=== PATIENT | female | born 1960 | race Caucasian/White ===

== ENCOUNTER 2019-06-16 20:45 | Emergency (ER) | payer BC, SELFPAY ==
[2019-06-16 20:47] VITALS: BP 139/85; PULSE 68; RESP 15; TEMP 36.4; O2SAT 97; BMI 31.5
--- NOTE | 2019-06-16 20:53 | CTR_ITS ---
PROCEDURE INFORMATION: Exam: CT Abdomen And Pelvis Without Contrast Exam date and time: 06/16/2019 8:53 PM Age: 59 years old Clinical indication: Abdominal pain; Flank; Left; Prior surgery; Additional info: Flank/abdominal pain TECHNIQUE: Imaging protocol: Computed tomography of the abdomen and pelvis without contrast. Total DLP: 1400.16 mGy-cm Radiation optimization: All CT scans at this facility use at least one of these dose optimization techniques: automated exposure control; mA and/or kV adjustment per patient size (includes targeted exams where dose is matched to clinical indication); or iterative reconstruction. COMPARISON: CT abdomen pelvis w con* [id number] 03/11/2019 9:56 AM FINDINGS: Minimal atelectasis at the right lung place. Status post cholecystectomy. There is a 1.5 cm hypodensity in the left hepatic lobe on series 2, image 37. Appearance suggests cyst. The spleen, pancreas, adrenal glands, and kidneys are unremarkable within the limits of a noncontrast study. No renal stones identified. No hydronephrosis on either side. A normal-appearing appendix is seen in the right lower quadrant. No evidence of bowel obstruction. No evidence of diverticulitis. No free intraperitoneal air or fluid identified. The bladder is unremarkable. The abdominal aorta is nonaneurysmal. Mild degenerative changes of the lower thoracic spine and the lumbar spine. CT/CT kidney stone [id number] IMPRESSION: 1. No acute intra-abdominal/intrapelvic process identified. Radiation Dose CTDIVOL = (mGy): DLP = 1400.16 (mGy-cm)
--- NOTE | 2019-06-16 21:19 | W.ED.ABDPA2 ---
HPI - Abdominal Pain General: Chief Complaint: Abdominal Pain Stated Complaint: ABDOMEN PAIN Time Seen by Provider: 06/16/19 20:48 History of Present Illness: HPI narrative: Carrie is a nice 59-year-old female who comes in complaining of right-sided flank pain. She states she is been having symptoms for the past 2 days. She had symptoms of a UTI and was seen by urgent care and diagnosed with a UTI and was placed on Cipro. She continues to have pain and feel nauseated. She has not had a fever and she has not vomited. Associated Symptoms: Reports nausea; Denies chills, coffee ground emesis, constipation, GI cramping, diarrhea, dysuria, fever(s), hematochezia, hematuria, hematemesis, melena, syncope and vomiting Review of Systems General: Reports: other (negative unless marked) Const: Denies: fever, chills, body aches, fatigue, malaise or diaphoresis Eyes: Denies: change in vision or blurry vision ENMT: Denies: throat pain, painful swallowing, hoarseness, ear pain, ear discharge, Change in hearing or nasal discharge Card: Denies: chest pain, palpitations, irregular heart rhythm, syncope, pre-syncope, shortness of breath on exertion or shortness of breath when lying down Resp: Denies: shortness of breath, productive cough, non-productive cough, wheezing, coughing up blood or chest congestion GI: Reports: nausea; Denies: abdominal pain, vomiting, vomiting blood, coffee grounds in vomit, diarrhea, constipation, cramping, blood in stool or black tarry stool : Denies: painful urination, urinary frequency, urinary urgency, decreased urine ouput, urinary incontinence or blood in urine Musc: Denies: neck pain, back pain, extremity pain, extremity swelling, joint pain, joint swelling, joint warmth or joint stiffness Skin/Breast: Denies: rash, skin tenderness or yellow skin Neuro: Denies: headache, numbness in extremities, weakness in extremities, changes in sensation, lack of coordination, difficulty walking, dizziness, vertigo or confusion Endo: Denies: excessive thirst, tired all the time, cold intolerance, excessive sweating, flushing or hot flashes Froylan/Lymph: Denies: easy bruising, easy bleeding, petechiae or enlarged lymph nodes All/Imm: Denies: hives, throat swelling, tongue swelling, facial swelling or acute wheezing PFSH ED PFSH: Social History Smoking and tobacco status: never smoked Second hand smoke exposure: Yes Alcohol intake: never Physical Exam Const: COMMON NORMALS: no apparent distress, oriented x3, no limitations, healthy appearing and well nourished EXAM LIMITATIONS: no altered mental status GENERAL APPEARANCE: cooperative, well kempt and well developed ORIENTATION/CONSCIOUSNESS: Yes awake HENMT: COMMON NORMALS: normocephalic, head/scalp atraumatic, hearing grossly normal bilaterally, external ears normal, EAC's normal, external nose normal and moist oral mucous membranes HEAD & SCALP: normal to inspection, normocephalic and atraumatic FACE & SINUS: normal facial exam and face symmetric NOSE: external nose normal and nares normal EXTERNAL EAR: Yes external ears normal EXTERNAL AUDITORY CANAL: EAC's normal MOUTH: oral and palatal mucosa normal and tongue normal Eye: COMMON NORMALS: PERRL, EOMs intact bilaterally, conjunctivae normal and no scleral icterus GENERAL EYE: normal appearance of both eyes and normal light reflex CONJUNCTIVA: Yes conjunctivae normal SCLERA: sclerae normal CORNEA: Yes corneas normal PUPIL: Yes PERRL DIRECT OPHTHALMOSCOPY: Yes normal light reflex Neck/C-Spine: COMMON NORMALS: full ROM, no lymphadenopathy, supple, no meningeal signs and no JVD GENERAL: Yes normal visual inspection and Yes trachea midline CERVICAL SPINE: Yes cervical ROM normal Chest: COMMONS NORMALS: inspection of chest normal and palpation of chest normal Resp: COMMON NORMALS: normal respiratory effort, no retractions, no use of accessory muscles and clear to auscultation bilaterally EFFORT & INSPECTION: Yes able to speak in complete sentences AUSCULTATION: clear to auscultation bilaterally Cardio: COMMON NORMALS: no JVD, regular rate, regular rhythm, S1 normal heart sound, S2 normal heart sound, no gallops, no clicks, no murmurs and no rub JUGULAR VENOUS DISTENTION: no JVD RATE: regular rate RHYTHM: regular rhythm HEART SOUNDS: S1 normal and S2 normal GI: COMMON NORMALS: soft to palpation, non-tender, no hepatosplenomegaly and no masses INSPECTION: Yes normal to inspection PALPATION: Yes soft and Yes no hepatosplenomegaly : COMMON NORMALS: Yes no CVA tenderness BLADDER/KIDNEY EXAM: Yes no CVA tenderness Back/Pelvis: COMMON NORMALS: no CVA tenderness, thoracic and lumbar spine normal to inspection, no thoracic nor lumbar tenderness and thoraco-lumbar ROM normal Extremity: COMMON NORMALS: normal to inspection, full ROM, normal capillary refill, no joint enlargement, no clubbing, cyanosis or edema and no calf tenderness Neuro: COMMON NORMALS: oriented x3, CN's II-XII intact bilaterally, moves all extremities, no focal motor deficits and no sensory deficits noted MENINGEAL SIGNS: Yes no meningeal signs Psych: COMMON NORMALS: mental status grossly normal, thought process normal, cooperative, affect normal, speech normal and activity/motor behavior normal APPEARANCE: Yes well kempt SPEECH: Yes normal speech THOUGHT PROCESS: normal thought process Skin: COMMON NORMALS: no rashes or lesions noted, skin turgor normal, no jaundice, no petechiae and no mottling GENERAL SKIN EXAM: no rashes or lesions noted and turgor normal Course Vital Signs: Vital signs: Vital Signs Temperature 97.6 F 06/16/19 20:47 Pulse Rate 53 L 06/16/19 22:33 Respiratory Rate 18 06/16/19 22:33 Blood Pressure 107/75 06/16/19 22:33 Pulse Oximetry 99 06/16/19 22:33 MDM - Abdominal Pain MDM Narrative: Medical decision making narrative: Mrs. Solis is a nice 59-year-old female who comes in complaining of abdominal pain. She primarily planes of right flank pain. CT scan shows a normal appendix and no evidence of kidney stone. She is been previously diagnosed with UTI and is on Cipro for this. She was to continue this and I have discussed with her at length that the possibility of developing appendicitis is present. She agrees to continue this and return if her symptoms worsen or change. She understands that appendicitis is still a possibility for her symptoms she does agree to return if necessary. Differential Diagnosis: Differential diagnosis abdominal pain: Likely abdominal pain, acute appendicitis, calculus of kidney, constipation, diverticulitis, endometriosis, gastroenteritis, pancreatitis and small bowel obstruction Lab Data: Attestation: I reviewed the patient's lab results. Labs: Lab Results 06/16/19 06/16/19 06/16/19 Range/Units 21:20 21:20 21:36 WBC 5.6 (4.0-10.0) 10^3/ uL RBC 4.11 (4.1-5.3) 10^6/u L Hgb 12.1 (11.5-15.3) g/dL Hct 38.2 (37.0-47.0) % MCV 92.9 (81-99) fL MCH 29.4 (28.0-34.0) pg MCHC 31.7 (30.0-36.0) g/dL RDW 13.5 (12.1-15.1) % Plt Count 225 (130-400) 10^3/c mm MPV 10.1 (7.4-10.4) fL Neut % (Auto) 64.1 % Lymph % (Auto) 25.7 % King[place]isher % (Auto) 6.9 % Eos % (Auto) 2.8 % Baso % (Auto) 0.5 % Neut # (Auto) 3.6 (1.8-7.7) 10^3/u L Lymph # (Auto) 1.5 (0.8-4.8) 10^3/u L [place] # (Auto) 0.4 (0.2-0.9) 10^3/u L Eos # (Auto) 0.2 (0.0-0.8) 10^3/u L Baso # (Auto) 0.0 (0.0-0.1) 10^3/u L Nucleated RBC % (a uto) 0 % Nucleated RBCs # 0.0 /100WBC Sodium 140 (136-145) mmol/L Potassium 4.2 (3.5-5.1) mmol/L Chloride 103 (98-107) mmol/L Carbon Dioxide 24 (22-29) mmol/L Anion Gap 17.2 (5-19) BUN 11 (6-20) mg/dL Creatinine 1.2 H (0.5-0.9) mg/dL GFR Calculation 46.0 L (90-130) mL/min Glucose 112 (65-115) mg/dL Calculated Osmolal ity 287 (285-295) mOsm/k g Calcium 9.7 (8.5-10.5) mg/dL Total Bilirubin 0.3 (0.15-1.2) mg/dL AST 28 (0-32) U/L ALT 27 (0-33) U/L Alkaline Phosphata se 82 (35-105) IU/L Total Protein 7.5 (6.6-8.7) g/dL Albumin 3.9 (3.5-5.2) g/dL Globulin 3.6 (1.3-4.6) g/dL Lipase 46 (13-60) U/L HCG, Qual Negative (Negative) Urine Color (Yellow) Urine Appearance (CLEAR) Urine pH (5-7) Ur Specific Gravit y (1.005-1.030) Urine Protein (Negative) Urine Glucose (UA) (Normal) Urine Ketones (Negative) Urine Blood (Negative) Urine Nitrate (Negative) Urine Bilirubin (NEGATIVE) Urine Urobilinogen (Negative) mg/dL Ur Leukocyte Mame ase (Negative) 06/16/19 Range/Units 21:36 WBC (4.0-10.0) 10^3/ uL RBC (4.1-5.3) 10^6/u L Hgb (11.5-15.3) g/dL Hct (37.0-47.0) % MCV (81-99) fL MCH (28.0-34.0) pg MCHC (30.0-36.0) g/dL RDW (12.1-15.1) % Plt Count (130-400) 10^3/c mm MPV (7.4-10.4) fL Neut % (Auto) % Lymph % (Auto) % Kingfisher % (Auto) % Eos % (Auto) % Baso % (Auto) % Neut # (Auto) (1.8-7.7) 10^3/u L Lymph # (Auto) (0.8-4.8) 10^3/u L Kingfisher # (Auto) (0.2-0.9) 10^3/u L Eos # (Auto) (0.0-0.8) 10^3/u L Baso # (Auto) (0.0-0.1) 10^3/u L Nucleated RBC % (a uto) % Nucleated RBCs # /100WBC Sodium (136-145) mmol/L Potassium (3.5-5.1) mmol/L Chloride (98-107) mmol/L Carbon Dioxide (22-29) mmol/L Anion Gap (5-19) BUN (6-20) mg/dL Creatinine (0.5-0.9) mg/dL GFR Calculation (90-130) mL/min Glucose (65-115) mg/dL Calculated Osmolal ity (285-295) mOsm/k g Calcium (8.5-10.5) mg/dL Total Bilirubin (0.15-1.2) mg/dL AST (0-32) U/L ALT (0-33) U/L Alkaline Phosphata se (35-105) IU/L Total Protein (6.6-8.7) g/dL Albumin (3.5-5.2) g/dL Globulin (1.3-4.6) g/dL Lipase (13-60) U/L HCG, Qual (Negative) Urine Color Yellow (Yellow) Urine Appearance Clear (CLEAR) Urine pH 6.5 (5-7) Ur Specific Gravit y 1.010 (1.005-1.030) Urine Protein Neg (Negative) Urine Glucose (UA) Norm (Normal) Urine Ketones Negative (Negative) Urine Blood Neg (Negative) Urine Nitrate Negative (Negative) Urine Bilirubin Neg (NEGATIVE) Urine Urobilinogen Norm (Negative) mg/dL Ur Leukocyte Mame ase Negative (Negative) Imaging Data ^: CT Abd/Pel: Radiologist's impression: [place] [address] CT Scan Report Signed Patient: Carrie Solis #: [id number] : 1960Acct#:[id number] Age/Sex: 59 / FADM Date: 06/16/19 Loc: ERRoom/Bed: Attending Dr: Ordering Provider/Ordering MD: Alejandrina Gaspar DO Date of Service: 06/16/19 Procedure(s): CT kidney stone 28435 Accession Number(s): [id number] Report Number: [id number] PROCEDURE INFORMATION: Exam: CT Abdomen And Pelvis Without Contrast Exam date and time: 06/16/2019 8:53 PM Age: 59 years old Clinical indication: Abdominal pain; Flank; Left; Prior surgery; Additional info: Flank/abdominal pain TECHNIQUE: Imaging protocol: Computed tomography of the abdomen and pelvis without contrast. Total DLP: 1400.16 mGy-cm Radiation optimization: All CT scans at this facility use at least one of these dose optimization techniques: automated exposure control; mA and/or kV adjustment per patient size (includes targeted exams where dose is matched to clinical indication); or iterative reconstruction. COMPARISON: CT abdomen pelvis w con* [id number] 03/11/2019 9:56 AM FINDINGS: Minimal atelectasis at the right lung place. Status post cholecystectomy. There is a 1.5 cm hypodensity in the left hepatic lobe on series 2, image 37. Appearance suggests cyst. The spleen, pancreas, adrenal glands, and kidneys are unremarkable within the limits of a noncontrast study. No renal stones identified. No hydronephrosis on either side. A normal-appearing appendix is seen in the right lower quadrant. No evidence of bowel obstruction. No evidence of diverticulitis. No free intraperitoneal air or fluid identified. The bladder is unremarkable. The abdominal aorta is nonaneurysmal. Mild degenerative changes of the lower thoracic spine and the lumbar spine. CT/CT kidney stone [id number] IMPRESSION: 1. No acute intra-abdominal/intrapelvic process identified. Radiation Dose CTDIVOL = (mGy): DLP = 1400.16 (mGy-cm) Dictated By:Steve Jefferson MD Signed By:Steve Jeffersonigned Date/Time:06/16/192133 DD/ 31 Discharge Plan Discharge Patient Disposition: Home, Self-Care Clinical Impression: Acute flank pain Condition: Stable Prescriptions: No Action diltiazem HCl 180 mg capsule,extended release 24 hr 180 mg PO DAILY RF: 0 prednisone 10 mg tablet 10 mg PO BID RF: 0 OTC thyroid care PO RF: 0 biotin PO RF: 0 Immune Support Complex 75 mg tablet PO RF: 0 OTC blood pressure PO RF: 0 OTC stone free PO RF: 0 OTC Kidney and Bladder PO RF: 0 Bioflavonoids, [place] Powder PO RF: 0 ascorbate calcium (vitamin C) 500 mg capsule 500 mg PO DAILY RF: 0 d-mannose Powder PO RF: 0 Alive Once Daily Women 50 Plus 800-100 mcg tablet PO RF: 0 shark oil 1000mg PO BID RF: 0 Adult Probiotic 3 billion cell capsule 3,000 mmu cells PO DAILY RF: 0 magnesium gluconate 500 mg tablet 500 mg PO DAILY RF: 0 magnesium aspartate HCl 61 mg (615 mg) tablet,delayed release (DR/EC) 61 mg PO DAILY RF: 0 Discharge Orders: Discharge Order (Routine); Ordered 06/16/19 Ordered By: Alejandrina Gaspar Referrals: Loli Stahl [Primary Care Provider] - Rosalind Tejada DO [Family Provider] - 1-3 days Discharge Diet: Advance as tolerated Discharge Activity: Increase activity as tolerated Patient Instructions: Abdominal Pain (ED) Activity Restrictions/Additional Instructions: Please return to the ER immediately for any of the signs or symptoms listed on your discharge instruction sheets, worsening/changing of your symptoms, you are not getting better as quickly as expected, or for ANY other cause or concerns. Be certain to follow-up with your doctor for recheck or return to the ER for increasing pain in your right side as appendicitis is still a potential cause for your pain. Return to the ER in the next 12 to 24 hours for recheck to rule out appendicitis if you are still having any pain at all. Coding Level of Care Code ED Chief Radiologic Technologist for [facility] Exam Comprehensive
[2019-06-16 21:30] VITALS: BP 124/78; PULSE 80; RESP 18; O2SAT 97
[2019-06-16 21:32] VITALS: RESP 18; O2SAT 99
[2019-06-16] MEDS: morphine 4 mg/mL SDV 1 mL IVP (21:32)
[2019-06-16] MEDS: ondansetron 2 mg/ML SDV 2 mL 4 MG IVP (21:32)
[2019-06-16 21:34] LABS: Basophils % 0.5 %; Eosinophils # 0.2 10^3/uL (0.0-0.8); Eosinophils % 2.8 %; Hematocrit 38.2 % (37.0-47.0); Hemoglobin 12.1 g/dL (11.5-15.3); Lymphocytes # 1.5 10^3/uL (0.8-4.8); Lymphocytes % 25.7 %; Mean Corpuscular HGB Conc 31.7 g/dL (30.0-36.0); Mean Corpuscular Hemoglobin 29.4 pg (28.0-34.0); Mean Corpuscular Volume 92.9 fL (81-99); Mean Platelet Volume 10.1 fL (7.4-10.4); Monocytes # 0.4 10^3/uL (0.2-0.9); Monocytes % 6.9 %; Neutrophils # 3.6 10^3/uL (1.8-7.7); Neutrophils % 64.1 %; Nucleated Red Blood Cells % 0 %; Platelet Count 225 10^3/cmm (130-400); Red Blood Count 4.11 10^6/uL (4.1-5.3); Red Cell Distribution Width 13.5 % (12.1-15.1); White Blood Count 5.6 10^3/uL (4.0-10.0)
[2019-06-16 21:43] LABS: HCG Qualitative Urine. Negative (Negative)
[2019-06-16 21:49] LABS: Urine Appearance Clear (CLEAR); Urine Color Yellow (Yellow); pH Urine 6.5 (5-7)
[2019-06-16 21:50] LABS: Bilirubin Urine Neg (NEGATIVE); Blood Urine Neg (Negative); Glucose Urine UA Norm (Normal); Ketones Urine Negative (Negative); Nitrate Urine Negative (Negative); Protein Urine Neg (Negative); Urobilinogen Urine Norm (Negative)
[2019-06-16 21:51] LABS: Add Urine Culture? No
[2019-06-16 21:52] LABS: Alanine Aminotransferase 27 U/L (0-33); Albumin Level 3.9 g/dL (3.5-5.2); Alkaline Phosphatase 82 IU/L (35-105); Anion Gap 17.2 (5-19); Aspartate Amino Transferase 28 U/L (0-32); Blood Urea Nitrogen 11 mg/dL (6-20); Calcium 9.7 mg/dL (8.5-10.5); Carbon Dioxide 24 mmol/L (22-29); Chloride 103 mmol/L (98-107); Globulin 3.6 g/dL (1.3-4.6); Glucose 112 mg/dL (65-115); Lipase 46 U/L (13-60); Osmolality Calculated 287 mOsm/kg (285-295); Potassium 4.2 mmol/L (3.5-5.1); Sodium 140 mmol/L (136-145); Total Bilirubin 0.3 mg/dL (0.15-1.2); Total Protein 7.5 g/dL (6.6-8.7)
[2019-06-16 22:00] LABS: Leukocyte Esterase Urine Negative (Negative)
[2019-06-16 22:19] VITALS: BP 107/75; PULSE 77; RESP 18; O2SAT 99
[2019-06-16 22:33] VITALS: BP 107/75; PULSE 53; RESP 18; O2SAT 99
== END 2019-06-16 22:34 | disposition home or self-care (01) ==
LOC: ER 06-17 02:01
PROVIDERS: Emergency Provider Emergency Medicine; Family Provider Family Medicine; PCP Registered Nurse
DX: R10.9 Unspecified abdominal pain (principal)
CPT/HCPCS: 12345; 36415; 74176; 80053; 81001; 81025; 83690; 85025; 96374; 96375; 99282; 99283; A9270; J2270; J2405

== ENCOUNTER 2019-07-20 22:38 | Emergency (ER) | payer BC, SELFPAY ==
[2019-07-20 22:47] VITALS: BP 195/116; PULSE 76; RESP 16; TEMP 36.4; O2SAT 98; BMI 32.2
--- NOTE | 2019-07-20 23:14 | XR_ITS ---
WS: [id number] XR hand LT min 3V* [id number] REASON FOR EXAM: pain swelling FINDINGS: Degenerate changes of the first metacarpal carpal articulation. There appears to be a remot e fracture of the proximal first metacarpal. There is degenerate changes of the distal interphalangeal joints. No fractures are seen. XR/XR hand LT min 3V* [id number] IMPRESSION: Osteoarthritic changes.
--- NOTE | 2019-07-20 23:27 | ED_ITS ---
HPI - Extremity Problem General: Chief complaint: Extremity Injury, Lower Stated complaint: right leg/left hand welling Time Seen by Provider: 07/20/19 22:59 History of Present Illness: HPI Narrative: 59-year-old female presents with right lower extremity swelling, and pain behind her knee. She says it feels hot. She is not had this problem before. There was no injury. She does have a history of Sjogren's disease. She also complains of left hand second and third MCP pain and swelling that is nontraumatic. She states she has been on prednisone. MD Complaint: extremity pain and extremity swelling Onset (ago): day(s) Pain Consistency: constant Location: right, knee and other (Left hand) Quality: aching Radiation: none Relieving factors: nothing Exacerbating factors: weight bearing Associated symptoms: Deny chest pain, fever(s), myalgias, rash or short of breath Review of Systems Const: Denies: fever Eyes: Denies: change in vision ENMT: Denies: painful swallowing Card: Reports: edema; Denies: chest pain or palpitations Resp: Denies: shortness of breath, productive cough, non-productive cough or wheezing GI: Denies: abdominal pain, nausea or vomiting : Reports: urinary frequency; Denies: painful urination or blood in urine Musc: Reports: back pain and joint warmth; Denies: neck pain or redness Skin/Breast: Denies: rash, itching or redness Neuro: Denies: headache, dizziness or vertigo Psych: Denies: anxiety PFSH ED PFSH: Social History Smoking and tobacco status: never smoked Second hand smoke exposure: Yes Alcohol intake: never Physical Exam Const: GENERAL APPEARANCE: well developed ORIENTATION/CONSCIOUSNESS: Yes oriented to person, Yes oriented to place and Yes oriented to time HENMT: COMMON NORMALS: normocephalic, external ears normal and external nose normal HEAD & SCALP: normocephalic FACE & SINUS: normal facial exam NOSE: external nose normal and no nasal discharge EXTERNAL EAR: Yes external ears normal MOUTH: tongue normal Eye: COMMON NORMALS: PERRL and EOMs intact bilaterally EYELID: eyelids normal PUPIL: Yes PERRL Neck/C-Spine: GENERAL: No tracheal deviation Chest: COMMONS NORMALS: inspection of chest normal CHEST: No tenderness Resp: COMMON NORMALS: clear to auscultation bilaterally EFFORT & INSPECTION: No tachypneic, No respiratory distress, No retractions, No uses accessory muscles and No tracheal deviation AUSCULTATION: clear to auscultation bilaterally, no rhonchi, no wheezes and lung sounds not diminished Cardio: COMMON NORMALS: regular rate and regular rhythm RATE: regular rate RHYTHM: regular rhythm HEART SOUNDS: no murmurs PERIPHERAL PULSES: radial pulses present GI: INSPECTION: No abdominal distension AUSCULTATION: No hyperactive bowel sounds and No hypoactive bowel sounds PALPATION: No guarding and No rigid PERCUSSION: no dullness to percussion and no tympanic to percussion Extremity: NARRATIVE EXTREMITY EXAM: Exam of the right lower extremity reveals some edema. There is fullness behind the knee. The knee is diffusely mildly tender. There is mild warmth. There is no clear joint effusion. Exam of the left hand reveals swelling and some synovitis along the MCPs of the second and third digit. There is diffuse tenderness to palpation. No rash or streaking. Neuro: SENSORIUM/ORIENTATION: Yes oriented to person, Yes oriented to place and Yes oriented to time Psych: COMMON NORMALS: mental status grossly normal Skin: COMMON NORMALS: no rashes or lesions noted GENERAL SKIN EXAM: no rashes or lesions noted Procedures Joint Aspiration/Injection Joint Asp./Inject. 1: Side of body: right Joint Aspirated: knee Ultrasound Guidance: Yes Skin Prep: Chlorhexidine Local Anesthetic: lidocaine 1% Amount of anesthesia used (mL): 5 Needle Size Used: 18G Fluid Obtained: clear Total fluid obtained (mL): 22 Medication Injected, if any: Triamcinolone Acetate Amount of medication injected (mL): 1 Patient Tolerated Procedure: well Complications: none Course Vital Signs: Vital signs: Vital Signs Temperature 97.5 F L 07/20/19 22:47 Pulse Rate 79 07/21/19 02:54 Respiratory Rate 16 07/21/19 02:54 Blood Pressure 138/82 07/21/19 02:54 Pulse Oximetry 98 07/21/19 02:54 MDM - Extremity (Nontraumatic) MDM Narrative: Medical decision making narrative: 59-year-old patient with 2 specific complaints. The first is that of left hand pain, specifically her second and third MCPs. She has some synovitis there. I do not see any erosive changes on x-ray. She has a history of Sjogren's disease. Her second complaint is that of knee and lower leg pain and swelling. This is on the right. She feels a fullness behind her knee. Ultrasound was negative for DVT. 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 On my bedside ultrasound, a tiny Philippe's cyst was noted. A moderate knee joint effusion was also noted. It was noted on x-ray as well. I do not see any fracture or erosive changes on x-ray. Knee was aspirated with 22 mL of slightly bloody, mostly clear fluid aspirated. It is sent for synovial fluid analysis. Her white blood cell count is 6.4. Her other labs are benign. Her sed rate is only minimally elevated. We will go ahead and let her go on a taper of prednisone. Should her synovial fluid come back worrisome for septic arthritis, we will call her back. Fluid analysis reveals a slightly inflammatory joint. White count is well below sepsis markers. Cells are nearly all monocytes. Culture and crystal analysis are pending. Lab Data: Labs: Lab Results 07/20/19 07/21/19 07/21/19 Range/Units 23:45 00:40 00:40 WBC 6.4 (4.0-10.0) 10^3/ uL RBC 4.34 (4.1-5.3) 10^6/u L Hgb 13.1 (11.5-15.3) g/dL Hct 40.5 (37.0-47.0) % MCV 93.3 (81-99) fL MCH 30.2 (28.0-34.0) pg MCHC 32.3 (30.0-36.0) g/dL RDW 13.8 (12.1-15.1) % Plt Count 255 (130-400) 10^3/c mm MPV 9.7 (7.4-10.4) fL Neut % (Auto) 66.9 % Lymph % (Auto) 21.1 % [place] % (Auto) 8.9 % Eos % (Auto) 2.3 % Baso % (Auto) 0.3 % Neut # (Auto) 4.3 (1.8-7.7) 10^3/u L Lymph # (Auto) 1.4 (0.8-4.8) 10^3/u L [place] # (Auto) 0.6 (0.2-0.9) 10^3/u L Eos # (Auto) 0.2 (0.0-0.8) 10^3/u L Baso # (Auto) 0.0 (0.0-0.1) 10^3/u L Nucleated RBC % (a uto) 0 % Nucleated RBCs # 0.0 /100WBC ESR 35 H (0-15) mm/hr Sodium (136-145) mmol/L Potassium (3.5-5.1) mmol/L Chloride (98-107) mmol/L Carbon Dioxide (22-29) mmol/L Anion Gap (5-19) BUN (6-20) mg/dL Creatinine (0.5-0.9) mg/dL GFR Calculation (90-130) mL/min Glucose (65-115) mg/dL Calculated Osmolal ity (285-295) mOsm/k g Calcium (8.5-10.5) mg/dL Total Bilirubin (0.15-1.2) mg/dL AST (0-32) U/L ALT (0-33) U/L Alkaline Phosphata se (35-105) IU/L C-Reactive Protein (0.0-4.9) mg/L Total Protein (6.6-8.7) g/dL Albumin (3.5-5.2) g/dL Globulin (1.3-4.6) g/dL Urine Color Straw (Yellow) Urine Appearance Clear (CLEAR) Urine pH 7 (5-7) Ur Specific Gravit y 1.005 (1.005-1.030) Urine Protein Neg (Negative) Urine Glucose (UA) Norm (Normal) Urine Ketones Negative (Negative) Urine Blood Neg (Negative) Urine Nitrate Negative (Negative) Urine Bilirubin Neg (NEGATIVE) Urine Urobilinogen Norm (Negative) mg/dL Ur Leukocyte Mame ase Negative (Negative) Fluid Crystals Synovial Color (PALE YELLOW) Synovial Appearanc e (CLEAR) Synovial WBC (0-150) /uL Synovial RBC (0-0) 10^3/uL Synovial Mononucle ar 10^3/uL Synov Polynuclear WBCs 10^3/uL Synovial Polynucle ar % % Synovial Mononucle ar % % Path Cons w/Slide 07/21/19 07/21/19 07/21/19 Range/Units 00:40 02:33 02:33 WBC (4.0-10.0) 10^3/ uL RBC (4.1-5.3) 10^6/u L Hgb (11.5-15.3) g/dL Hct (37.0-47.0) % MCV (81-99) fL MCH (28.0-34.0) pg MCHC (30.0-36.0) g/dL RDW (12.1-15.1) % Plt Count (130-400) 10^3/c mm MPV (7.4-10.4) fL Neut % (Auto) % Lymph % (Auto) % [place] % (Auto) % Eos % (Auto) % Baso % (Auto) % Neut # (Auto) (1.8-7.7) 10^3/u L Lymph # (Auto) (0.8-4.8) 10^3/u L [place] # (Auto) (0.2-0.9) 10^3/u L Eos # (Auto) (0.0-0.8) 10^3/u L Baso # (Auto) (0.0-0.1) 10^3/u L Nucleated RBC % (a uto) % Nucleated RBCs # /100WBC ESR (0-15) mm/hr Sodium 140 (136-145) mmol/L Potassium 3.6 (3.5-5.1) mmol/L Chloride 105 (98-107) mmol/L Carbon Dioxide 25 (22-29) mmol/L Anion Gap 13.6 (5-19) BUN 24 H (6-20) mg/dL Creatinine 1.1 H (0.5-0.9) mg/dL GFR Calculation 50.8 L (90-130) mL/min Glucose 96 (65-115) mg/dL Calculated Osmolal ity 287 (285-295) mOsm/k g Calcium 9.7 (8.5-10.5) mg/dL Total Bilirubin 0.2 (0.15-1.2) mg/dL AST 29 (0-32) U/L ALT 39 H (0-33) U/L Alkaline Phosphata se 86 (35-105) IU/L C-Reactive Protein 1.5 (0.0-4.9) mg/L Total Protein 8.2 (6.6-8.7) g/dL Albumin 4.2 (3.5-5.2) g/dL Globulin 4.0 (1.3-4.6) g/dL Urine Color (Yellow) Urine Appearance (CLEAR) Urine pH (5-7) Ur Specific Gravit y (1.005-1.030) Urine Protein (Negative) Urine Glucose (UA) (Normal) Urine Ketones (Negative) Urine Blood (Negative) Urine Nitrate (Negative) Urine Bilirubin (NEGATIVE) Urine Urobilinogen (Negative) mg/dL Ur Leukocyte Mame ase (Negative) Fluid Crystals See path consult Synovial Color Pale yellow (PALE YELLOW) Synovial Appearanc e Hazy (CLEAR) Synovial WBC 780 H (0-150) /uL Synovial RBC 1 H (0-0) 10^3/uL Synovial Mononucle ar 0.678 10^3/uL Synov Polynuclear WBCs 0.102 10^3/uL Synovial Polynucle ar % 13.100 % Synovial Mononucle ar % 86.900 % Path Cons w/Slide Yes Discharge Plan Discharge Patient Disposition: Home, Self-Care Clinical Impression: Effusion of knee joint right Sjogrens syndrome Qualifiers: Sjogren's organ involvement: unspecified organ involvement Qualified Code(s): M35.00 - Sicca syndrome, unspecified Condition: Stable Prescriptions: New prednisone 10 mg tablet 10 mg PO BID Qty: 60 RF: 0 No Action diltiazem HCl 180 mg capsule,extended release 24 hr 180 mg PO DAILY RF: 0 prednisone 10 mg tablet 10 mg PO BID RF: 0 OTC thyroid care PO RF: 0 biotin PO RF: 0 Immune Support Complex 75 mg tablet PO RF: 0 OTC blood pressure PO RF: 0 OTC stone free PO RF: 0 OTC Kidney and Bladder PO RF: 0 Bioflavonoids, [place] Powder PO RF: 0 ascorbate calcium (vitamin C) 500 mg capsule 500 mg PO DAILY RF: 0 d-mannose Powder PO RF: 0 Alive Once Daily Women 50 Plus 800-100 mcg tablet PO RF: 0 shark oil 1000mg PO BID RF: 0 Adult Probiotic 3 billion cell capsule 3,000 mmu cells PO DAILY RF: 0 magnesium gluconate 500 mg tablet 500 mg PO DAILY RF: 0 magnesium aspartate HCl 61 mg (615 mg) tablet,delayed release (DR/EC) 61 mg PO DAILY RF: 0 Discharge Orders: Discharge Order (Routine); Ordered 07/21/19 Ordered By: Chalres Yi Referrals: Rosalind Tejada DO [Primary Care Provider] - Discharge Diet: Usual diet Discharge Activity: Increase activity as tolerated Patient Instructions: Knee Effusion (ED) Activity Restrictions/Additional Instructions: Return for fever, worsening pain despite treatment, worsening swelling, streaking, redness, other concerning symptoms. Discharge Date/Time: 07/21/19 03:02 Coding Level of Care Code ED Edge Drummer for Chg Fwd Exam Comprehensive
[2019-07-20 23:52] LABS: Add Urine Microscopic? NO
[2019-07-20 23:58] LABS: Bilirubin Urine Neg (NEGATIVE); Blood Urine Neg (Negative); Glucose Urine UA Norm (Normal); Ketones Urine Negative (Negative); Leukocyte Esterase Urine Negative (Negative); Nitrate Urine Negative (Negative); Protein Urine Neg (Negative); Specific Gravity, Urine 1.005 (1.005-1.030); Urine Appearance Clear (CLEAR); Urine Color Straw (Yellow); Urobilinogen Urine Norm (Negative); pH Urine 7 (5-7)
--- NOTE | 2019-07-21 00:33 | XR_ITS ---
WS: [id number] XR knee RT 3V* [id number] REASON FOR EXAM: pain FINDINGS: A fabella is seen in the posterior aspects of the knee. There is spurring off the anterior tibial plateau. The patella tibial space is normal. The patella femoral articulations were normal. The meniscal spaces are normal. There appears to be some joint effusion over the medial knee. XR/XR knee RT 3V* [id number] IMPRESSION: Prominent spurring off the anterior tibial spine. Soft tissue swelling along the medial compartment of the knee.
[2019-07-21 00:52] LABS: Basophils % 0.3 %; Eosinophils # 0.2 10^3/uL (0.0-0.8); Eosinophils % 2.3 %; Hematocrit 40.5 % (37.0-47.0); Hemoglobin 13.1 g/dL (11.5-15.3); Lymphocytes # 1.4 10^3/uL (0.8-4.8); Lymphocytes % 21.1 %; Mean Corpuscular HGB Conc 32.3 g/dL (30.0-36.0); Mean Corpuscular Hemoglobin 30.2 pg (28.0-34.0); Mean Corpuscular Volume 93.3 fL (81-99); Mean Platelet Volume 9.7 fL (7.4-10.4); Monocytes # 0.6 10^3/uL (0.2-0.9); Monocytes % 8.9 %; Neutrophils # 4.3 10^3/uL (1.8-7.7); Neutrophils % 66.9 %; Nucleated Red Blood Cells % 0 %; Platelet Count 255 10^3/cmm (130-400); Red Blood Count 4.34 10^6/uL (4.1-5.3); Red Cell Distribution Width 13.8 % (12.1-15.1); White Blood Count 6.4 10^3/uL (4.0-10.0)
[2019-07-21 01:07] LABS: Alanine Aminotransferase 39 U/L (0-33); Albumin Level 4.2 g/dL (3.5-5.2); Alkaline Phosphatase 86 IU/L (35-105); Anion Gap 13.6 (5-19); Aspartate Amino Transferase 29 U/L (0-32); Blood Urea Nitrogen 24 mg/dL (6-20); C Reactive Protein 1.5 mg/L (0.0-4.9); Calcium 9.7 mg/dL (8.5-10.5); Carbon Dioxide 25 mmol/L (22-29); Chloride 105 mmol/L (98-107); Glomerular Filtration Rate 50.8 mL/min (90-130); Glucose 96 mg/dL (65-115); Osmolality Calculated 287 mOsm/kg (285-295); Potassium 3.6 mmol/L (3.5-5.1); Sodium 140 mmol/L (136-145); Total Bilirubin 0.2 mg/dL (0.15-1.2); Total Protein 8.2 g/dL (6.6-8.7)
[2019-07-21 01:32] LABS: Erythrocyte Sedimentation Rate 35 mm/hr (0-15)
[2019-07-21] MEDS: triamcinolone 40 mg/mL SDV IM (02:04)
[2019-07-21] MEDS: lidocaine 1% INJ 20 mL INJECTION (02:04)
[2019-07-21 02:54] VITALS: BP 138/82; PULSE 79; RESP 16; O2SAT 98
[2019-07-21 03:11] LABS: RBC Synovial Fluid 1 10^3/uL (0-0); Synovial Fluid Mononuclear # 0.678 10^3/uL; Synovial Fluid Polynuclear # 0.102 10^3/uL; WBC Synovial Fluid 780 /uL (0-150)
[2019-07-21 03:40] LABS: Color Synovial Fluid PALE YELLOW (PALE YELLOW)
[2019-07-21 03:41] LABS: Appearance Synovial Fluid HAZY (CLEAR)
[2019-07-21 03:42] LABS: PATH Referal YES
[2019-07-21 03:59] LABS: Crystals, Fluid See Path Consult
[2019-07-21 05:01] LABS: Other Cells Synovial Fluid 0 %
--- NOTE | 2019-07-21 23:14 | USCV_ITS ---
Carrie Solis Age: 59 Gender: F : 1960 Exam Date: 07/21/2019 00:07 Ordering Phys: Charles Yi DO Technologist: Jade Madison Exam Location: [facility] [place] Indication: PAIN AND SWELLING 3 DAYS HISTORY: Pain and Swelling for 3 days. Pt complaint Rt Pop Fossa PROCEDURES: Venous duplex imaging was performed in only the right lower extremity. The following venous structures were evaluated: common femoral vein, profunda vein, proximal portion of the greater saphenous vein, superficial femoral vein, and the popliteal vein. In addition, the posterior tibial and peroneal trunk were evaluated. Serial compression, augmentation maneuvers, and spectral Doppler flow evaluation were performed. FINDINGS: No DVT seen in any vessel examined Small Philippe's cyst seen medial Rt. Pop Fossa, 3.0 x 0.6 cm in size CONCLUSIONS No evidence of DVT in the above-mentioned identifiable veins. Echolucent area in the right popliteal fossa, suggestive of a Philippe's cyst, measuring 3.0 x 0.6 cm No similar previous studies available for comparison Dr Daren Nuñez MD [facility] (Electronically Signed) Final Date: 21 Jul 2019 09:58 S
== END 2019-07-21 03:02 | disposition home or self-care (01) ==
PROVIDERS: Emergency Provider Emergency Medicine; Family Provider Family Medicine; PCP Family Medicine
DX: M25.461 Effusion, right knee (principal); M35.00 Sjogren syndrome, unspecified
CPT/HCPCS: 12345; 20610; 73130; 73562; 80053; 80500; 81003; 85025; 85651; 86140; 87070; 87075; 87205; 89050; 93971; 96372; 99282; 99283; A9270; J2001; J3301

== ENCOUNTER 2019-09-05 19:40 | Emergency (ER) | payer BC, SELFPAY ==
[2019-09-05 20:07] VITALS: BP 117/105; PULSE 85; RESP 16; TEMP 36.9; O2SAT 96; BMI 30.9
--- NOTE | 2019-09-05 22:15 | ED_ITS ---
HPI - General Adult General: Chief complaint: General Medical Stated complaint: sore throat Time Seen by Provider: 09/05/19 22:09 Source: patient Mode of arrival: ambulatory Limitations: no limitations History of Present Illness: HPI narrative: Mrs. Solis is a nice 59-year-old female who comes in complaining of sore throat. She is recently been exposed to strep throat. Multiple people in her family have been exposed. She denies any risk of coronavirus exposure. She states she is not had a fever, cough or shortness of breath. She states both sides of her throat hurt. She is not had a hoarse voice. She denies any nausea or vomiting or any other systemic symptoms. Associated symptoms: Deny chest pain, dyspnea, headache(s), nausea, rash, palpitations, syncope or vomiting Review of Systems Const: Denies: fever(s) Eyes: Denies: change in vision ENMT: Reports: throat pain Card: Denies: chest pain, palpitations, syncope, pre-syncope or dyspnea on exertion Resp: Denies: dyspnea, productive cough or non-productive cough GI: Denies: abdominal pain, nausea, vomiting or diarrhea : Denies: flank pain, dysuria, urinary frequency or urinary urgency Musc: Denies: neck pain, back pain or extremity pain Skin/Breast: Denies: rash or pruritus Neuro: Denies: headache(s), numbness in extremities, weakness in extremities or dizziness [place]/Lymph: Denies: easy bruising or easy bleeding All/Imm: Denies: urticaria PFSH ED PFSH: Medical History Chest pain Hypertension Mitral valve regurgitation Myalgia Sjogrens syndrome Surgical History S/P carpal tunnel release (~2014) S/P cholecystectomy (~1981) S/P total knee replacement (~1994) Family History Mother CAD (coronary artery disease) Father Myocardial infarction Social History Smoking and tobacco status: never smoked Second hand smoke exposure: Yes Alcohol intake: never Physical Exam Const: COMMON NORMALS: no acute distress, patient oriented x3, no limitations, healthy appearing and well nourished GENERAL APPEARANCE: cooperative, well kempt and well developed HENMT: COMMON NORMALS: normocephalic, atraumatic, external ears normal, EAC's normal and Normal external nose present HEAD & SCALP: normal to inspection, normocephalic and atraumatic FACE & SINUS: normal facial exam and face symmetric NOSE: Normal external nose present and Normal nares present EXTERNAL EAR: Yes external ears normal EXTERNAL AUDITORY CANAL: EAC's normal MOUTH: Normal oral and palatal mucosa present, lip normal and tongue normal THROAT: posterior oropharynx abnormal erythema Eye: COMMON NORMALS: Equal, round and reactive pupils present and conjunctivae normal GENERAL EYE: appearance normal, both eyes and all related structures ALIGNMENT: Yes alignment normal PERIORBITAL: periorbital findings normal EYELID: eyelids normal CONJUNCTIVA: Yes conjunctivae normal SCLERA: sclerae normal PUPIL: Yes Equal, round and reactive pupils present Neck/C-Spine: COMMON NORMALS: full ROM, no lymphadenopathy, supple, no meningeal signs and no JVD GENERAL: Yes normal visual inspection and Yes trachea midline Chest: COMMONS NORMALS: normal inspection of the chest and normal palpation of entire chest wall Resp: COMMON NORMALS: normal respiratory effort, No retractions and No use of accessory muscles EFFORT & INSPECTION: Yes able to speak in complete sentences and Yes symmetric chest movement AUSCULTATION: no crackles, no rales, no rhonchi and no wheezes Cardio: COMMON NORMALS: no JVD, regular rate, regular rhythm, S1 normal heart sound present and S2 normal heart sound present RATE: regular rate RHYTHM: regular rhythm HEART SOUNDS: S1 normal heart sound present, S2 normal heart sound present, no click, no gallops, no murmurs, no rubs and abnormal split S2 GI: COMMON NORMALS: Soft to palpation and No hepatosplenomegaly present PALPATION: Yes Soft to palpation, No Tenderness to palpation present (GI), No Guarding due to palpation present (GI), No Rigid due to palpation, Yes No hepatosplenomegaly present, No Hernia present, No Palpable mass present and No Pulsatile mass present : COMMON NORMALS: Yes no CVA tenderness BLADDER/KIDNEY EXAM: Yes no CVA tenderness EXTERNAL FEMALE EXAM: No Hernia present Back/Pelvis: COMMON NORMALS: no CVA tenderness, thoracic and lumbar spine normal to inspection, no thoracic nor lumbar tenderness and thoraco-lumbar ROM normal Extremity: COMMON NORMALS: normal to inspection, full ROM, capillary refill normal, no joint enlargement, no clubbing, cyanosis or edema and no calf tenderness Neuro: COMMON NORMALS: patient oriented x3, CN's II-XII intact bilaterally, moves all extremities, no focal motor deficits and no sensory deficits noted MENINGEAL SIGNS: Yes no meningeal signs SPEECH: speech normal Psych: COMMON NORMALS: mental status grossly normal, Normal thought process present, cooperative, normal affect, speech normal and activity/motor behavior normal APPEARANCE: Yes well kempt SPEECH: Yes normal speech THOUGHT PROCESS: Normal thought process present Skin: COMMON NORMALS: no rashes or lesions noted, turgor normal, no jaundice, no petechiae and no mottling GENERAL SKIN EXAM: no rashes or lesions noted and turgor normal Course Vital Signs: Vital signs: Vital Signs Temperature 98.4 F 09/05/19 20:07 Pulse Rate 76 09/05/19 22:49 Respiratory Rate 16 09/05/19 22:49 Blood Pressure 188/129 09/05/19 22:49 Pulse Oximetry 98 09/05/19 22:49 MDM - General Adult MDM Narrative: Medical decision making narrative: The patient declines testing for strep throat, influenza or coronavirus. She has to take her for treatment for possible cancer and would just assume being on the medications. Patient has tolerated Augmentin in the past and she is listing penicillins as an allergy but she states that what it actually does is just causes a yeast infection. I will go ahead and place her on Augmentin and she has requested a prescription for Diflucan as she is certain that will happen. I will give this to her as well. She agrees to return should her symptoms change or worsen. Discharge Plan Discharge Patient Disposition: Home, Self-Care Clinical Impression: Pharyngitis Qualifiers: Pharyngitis/tonsillitis etiology: unspecified etiology Qualified Code(s): J02.9 - Acute pharyngitis, unspecified Condition: Stable Prescriptions: New Augmentin 875-125 mg tablet 1 tab PO BID 10 Days Qty: 20 RF: 0 Diflucan 150 mg tablet 150 mg PO DAILY Qty: 1 RF: 0 No Action diltiazem HCl 180 mg capsule,extended release 24 hr 180 mg PO DAILY RF: 0 prednisone 10 mg tablet 10 mg PO BID RF: 0 OTC thyroid care PO RF: 0 biotin PO RF: 0 Immune Support Complex 75 mg tablet PO RF: 0 OTC blood pressure PO RF: 0 OTC stone free PO RF: 0 OTC Kidney and Bladder PO RF: 0 Bioflavonoids, [place] Powder PO RF: 0 ascorbate calcium (vitamin C) 500 mg capsule 500 mg PO DAILY RF: 0 d-mannose Powder PO RF: 0 Alive Once Daily Women 50 Plus 800-100 mcg tablet PO RF: 0 shark oil 1000mg PO BID RF: 0 Adult Probiotic 3 billion cell capsule 3,000 mmu cells PO DAILY RF: 0 magnesium gluconate 500 mg tablet 500 mg PO DAILY RF: 0 magnesium aspartate HCl 61 mg (615 mg) tablet,delayed release (DR/EC) 61 mg PO DAILY RF: 0 prednisone 10 mg tablet 10 mg PO BID Qty: 60 RF: 0 Discharge Orders: Discharge Order (Routine); Ordered 09/05/19 Ordered By: Alejandrina Gaspar Referrals: Rosalind Tejada DO [Primary Care Provider] - 1-3 days Discharge Diet: Usual diet Discharge Activity: Resume usual activity Patient Instructions: Pharyngitis (ED) Activity Restrictions/Additional Instructions: Please return to the ER immediately for any of the signs or symptoms listed on your discharge instruction sheets, worsening/changing of your symptoms, you are not getting better as quickly as expected, or for ANY other cause or concerns. Discharge Date/Time: 09/05/19 22:51 Coding Level of Care Code ED Bar Machine Operator Multiple Spindle for Harshad Fwd Exam Comprehensive
[2019-09-05] MEDS: amoxicillin-clav 875-125 mg Tablet 1 TAB PO (22:35)
[2019-09-05 22:49] VITALS: BP 188/129; PULSE 76; RESP 16; O2SAT 98
--- NOTE | 2019-09-05 22:49 | PC.NURSE ---
Pt's BP elevated at 188/129. MD Gaspar aware. Offered to keep pt. for further work up. Pt. declines and wants to be discharged to home.
== END 2019-09-05 22:51 | disposition home or self-care (01) ==
PROVIDERS: Emergency Provider Emergency Medicine; PCP Family Medicine
DX: J02.9 Acute pharyngitis, unspecified (principal); I10 Essential (primary) hypertension; Z77.22 Contact with and (suspected) exposure to environmental tobacco smoke (acute) (chronic)
CPT/HCPCS: 12345; 99281; 99283

== ENCOUNTER 2019-10-16 08:04 | Outpatient (CLI) | payer BC, SELFPAY | END 2019-10-16 08:05 | disposition home or self-care (01) | LOC: WOUND 08:04 | PROVIDERS: PCP Family Medicine; Visit Provider Emergency Medicine | DX: T81.33XA Disruption of traumatic injury wound repair, initial encounter (principal) | CPT/HCPCS: 11042; 87070; 87077; 87176; 87186; 87205; G0463 ==

== ENCOUNTER 2019-11-17 08:49 | Outpatient (CLI) | payer BC, SELFPAY | END 2019-11-17 08:50 | disposition home or self-care (01) | LOC: LAB 08:51 | PROVIDERS: PCP Family Medicine; Visit Provider Nurse Practitioner | DX: R30.0 Dysuria (principal) | CPT/HCPCS: 87086 ==

== ENCOUNTER 2020-05-19 12:05 | Outpatient (CLI) | payer BC, SELFPAY ==
--- NOTE | 2020-05-19 12:15 | US_ITS ---
WS: [id number] Complete ABDOMINAL ULTRASOUND HISTORY: ELEVATED LIVER ENZYMES COMPARISON: 01/12/2018 Liver: 16.2 cm in length. Normal size. Mild coarsened echotexture. Surface of the liver is slightly i rregular. Is a minimally complex cyst measuring 1.3 x 1.5 x 1.2 cm along the subcapsular location of the liver. Very similar in appearance to the prior examination with no increase in size. No solid mas s or bile duct dilatation. Gallbladder: Prior cholecystectomy. Pancreas: Normal size and echogenicity. CBD: 0.5 cm. Right kidney: 9.4 cm x 4.6 cm x 3.5 cm. No mass, cortical thickening or hydronephrosis. Left kidney: 11.1 cm x 4.7 cm x 4.6 cm. No mass, cortical thickening or hydronephrosis. Spleen: Normal size and echogenicity. Abdominal aorta and IVC are within normal limits. No ascites. US/US abdomen complete* [id number] IMPRESSION: 1. Moderate hepatic steatosis and findings suspicious for cirrhosis. 2. Stable LEFT hepatic lobe cyst. 3. Prior cholecystectomy.
== END 2020-05-19 12:06 | disposition home or self-care (01) ==
PROVIDERS: PCP Family Medicine; Visit Provider Registered Nurse
DX: R74.8 Abnormal levels of other serum enzymes (principal); K76.0 Fatty (change of) liver, not elsewhere classified; K76.89 Other specified diseases of liver; Z90.49 Acquired absence of other specified parts of digestive tract
CPT/HCPCS: 76700

== ENCOUNTER 2020-05-26 14:42 | Outpatient (CLI) | payer BC, SELFPAY ==
--- NOTE | 2020-05-26 15:11 | XR_ITS ---
WS: [id number] DEXA (DUAL ENERGY X-RAY ABSORPTIOMETRY) Bone mineral density was performed using a Mpax machine. HISTORY: POST MENOPAUSAL COMPARISON: None available. Lumbar spine BMD (L1-L4): 1.229 g/cm2 T score: 0.4 Z score: 1.2 Total hip BMD: Left: 1.016 g/cm2. T score: 0.1 Z score: 0.7 Right: 1.036 g/cm2. T score: 0.2 Z score: 0.9 10 year probability of a major osteoporotic fracture is 8%. XR/XR DEXA axial skeleton* [id number] IMPRESSION: Normal bone mineral density based upon the WHO classification for females.
== END 2020-05-26 14:43 | disposition home or self-care (01) ==
LOC: RADWPI 14:46
PROVIDERS: PCP Family Medicine; Visit Provider Registered Nurse
DX: Z78.0 Asymptomatic menopausal state (principal)
CPT/HCPCS: 77080

== ENCOUNTER → 2020-06-10 13:36 | Outpatient (BNVA) | payer BC, SELFPAY | PROVIDERS: PCP Family Medicine; Visit Provider Orthopaedic Surgery | DX: M48.061 Spinal stenosis, lumbar region without neurogenic claudication (principal) | CPT/HCPCS: 72110 ==

== ENCOUNTER 2020-06-16 08:14 | Outpatient (CLI) | payer BC, SELFPAY ==
--- NOTE | 2020-06-16 08:45 | MR_ITS ---
WS: [id number] MRI LUMBAR SPINE NONCONTRAST HISTORY: M48.061 - Spinal stenosis, lumbar region without neurogenic claudication COMPARISON: 06/09/2016 TECHNIQUE: Sagittal and axial multisequence imaging is submitted. Mild straightening of the normal lumbar lordosis. 2 mm retrolisthesis of L1, L2 and L3. No marrow keith ma or fracture. Mild disc space narrowing and desiccation throughout the lumbar spine. Conus terminates normally at L1. L1-L2: Diffuse annular disc bulging and osteophytic ridging. No significant stenosis. L2-L3: Diffuse osteophytic ridging and annular disc bulge. Very mild narrowing of the LEFT foramen du e to slightly asymmetric disc bulging and facet arthritis. Very mild narrowing of the subarticular re cesses, LEFT greater than RIGHT. L3-L4: Diffuse annular disc bulging and osteophytic ridging with mild facet arthritis. Ligamentum fla vum encroaches into the thecal sac, greatest on the LEFT. Mild central, subarticular recess and sky inal stenosis. L4-L5: Mild annular disc bulging and osteophytic ridging. Encroachment upon the ventral thecal sac an d moderate narrowing of the RIGHT subarticular recess and encroachment upon the L5 nerve root. Mild c entral stenosis and RIGHT foraminal stenosis. L5-S1: Diffuse asymmetric disc bulging and osteophytic ridging. Mild narrowing of the LEFT subarticul ar recess and encroachment upon the LEFT S1 nerve root. No high-grade stenosis. Subcentimeter RIGHT renal cyst. MR/MR lumbar spine wo con* [id number] IMPRESSION: 1. Mild progression of degenerative spondylitic changes since 2017. No high-gr brenton central stenosis. 2. Mild central and RIGHT foraminal stenosis at L4-5 with moderate narrowing o f the RIGHT subarticular recess and encroachment upon the RIGHT L5 nerve root. 3. Mild narrowing of the LEFT subarticular recess at L5-S1. 4. Mild bilateral subarticular recess narrowing at L2-3, LEFT greater than RIG HT. 5. Mild central, subarticular recess and foraminal stenosis at L3-4.
== END 2020-06-16 08:15 | disposition home or self-care (01) ==
LOC: RADSHAW 08:16
PROVIDERS: PCP Family Medicine; Visit Provider Orthopaedic Surgery
DX: M48.061 Spinal stenosis, lumbar region without neurogenic claudication (principal)
CPT/HCPCS: 72148

== ENCOUNTER → 2020-06-28 08:11 | Outpatient (BNVA) | payer BC, SELFPAY | PROVIDERS: PCP Family Medicine; Visit Provider Anesthesiology Pain Medicine | DX: G89.29 Other chronic pain (principal); M51.16 Intervertebral disc disorders with radiculopathy, lumbar region; M47.816 Spondylosis without myelopathy or radiculopathy, lumbar region; M54.9 Dorsalgia, unspecified; Z79.899 Other long term (current) drug therapy; Z79.891 Long term (current) use of opiate analgesic | CPT/HCPCS: 99205 ==

== ENCOUNTER → 2020-07-05 13:15 | Outpatient (BNVA) | payer BC, SELFPAY | PROVIDERS: PCP Family Medicine; Visit Provider Anesthesiology Pain Medicine | DX: G89.29 Other chronic pain (principal); M51.16 Intervertebral disc disorders with radiculopathy, lumbar region; M54.9 Dorsalgia, unspecified; Z79.891 Long term (current) use of opiate analgesic | CPT/HCPCS: 64483; 64484; J1100; J3490 ==

== ENCOUNTER → 2020-07-19 13:13 | Outpatient (BNVA) | payer BC, SELFPAY | PROVIDERS: PCP Family Medicine; Visit Provider Anesthesiology Pain Medicine | DX: G89.29 Other chronic pain (principal); M51.16 Intervertebral disc disorders with radiculopathy, lumbar region; M54.9 Dorsalgia, unspecified; Z79.891 Long term (current) use of opiate analgesic | CPT/HCPCS: 64483; 64484; J1100; J3490 ==

== ENCOUNTER → 2020-08-05 14:14 | Outpatient (BNVA) | payer BC, SELFPAY | PROVIDERS: PCP Family Medicine; Visit Provider Anesthesiology Pain Medicine | DX: G89.29 Other chronic pain (principal); M54.9 Dorsalgia, unspecified; M51.16 Intervertebral disc disorders with radiculopathy, lumbar region; M47.816 Spondylosis without myelopathy or radiculopathy, lumbar region; Z79.891 Long term (current) use of opiate analgesic | CPT/HCPCS: 99213 ==

== ENCOUNTER 2020-08-10 12:54 | Emergency (ER) | payer OTHER, BC, SELFPAY ==
[2020-08-10 13:00] VITALS: BP 177/84; PULSE 84; RESP 18; TEMP 36.4; O2SAT 96; BMI 30.8
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
[2020-08-10 14:10] VITALS: BP 158/87; PULSE 74; RESP 18; O2SAT 97
== END 2020-08-10 14:10 | disposition home or self-care (01) ==
PROVIDERS: Emergency Provider Student in an Organized Health Care Education/Training Program; PCP Family Medicine
DX: M79.89 Other specified soft tissue disorders (principal); V89.2XXA Person injured in unspecified motor-vehicle accident, traffic, initial encounter; I10 Essential (primary) hypertension; Z96.659 Presence of unspecified artificial knee joint; Z77.22 Contact with and (suspected) exposure to environmental tobacco smoke (acute) (chronic)
CPT/HCPCS: 73562; 99282

== ENCOUNTER → 2020-08-17 11:07 | Outpatient (BNVA) | payer BC, SELFPAY | PROVIDERS: PCP Family Medicine; Visit Provider Internal Medicine Rheumatology | DX: M35.00 Sjogren syndrome, unspecified (principal); R76.8 Other specified abnormal immunological findings in serum; R07.81 Pleurodynia; K02.9 Dental caries, unspecified | CPT/HCPCS: 99214 ==

== ENCOUNTER 2020-08-17 14:19 | Outpatient (CLI) | payer BC, SELFPAY ==
--- NOTE | 2020-08-17 14:27 | XR_ITS ---
WS: [id number] RIGHT RIBS, MULTIPLE VIEWS HISTORY: R07.81 - Pleurodynia COMPARISON: None available. Ribs: No rib fractures or bone destruction identified. Lungs and mediastinum: No identifiable rib fracture. Mild thoracic spondylitic change. XR/XR ribs RT 2V* [id number] IMPRESSION: No RIGHT rib fractures identified.
== END 2020-08-17 14:20 | disposition home or self-care (01) ==
PROVIDERS: PCP Family Medicine; Visit Provider Internal Medicine Rheumatology
DX: R07.81 Pleurodynia (principal)
CPT/HCPCS: 71100

== ENCOUNTER 2020-08-27 08:52 | Outpatient (CLI) | payer BC, SELFPAY ==
--- NOTE | 2020-08-27 08:59 | MR_ITS ---
WS: [id number] MRI RIGHT KNEE HISTORY: EFFUSION, RIGHT KNEE COMPARISON: 12/27/2019 Anterior cruciate ligament: Intact. Posterior cruciate ligament: Intact. Medial collateral ligament: Intact. Posterior lateral corner structures: Intact. Medial menisci: Mild intrasubstance degeneration in the posterior horn but no tear identified. Lateral meniscus: Intact. Normal signal, size and shape. Extensor mechanism: Distal quadriceps tendon and patellar tendons are intact. Fluid and soft tissue: There is a small suprapatellar joint effusion. Increase fluid surrounding the PCL. No Philippe's cyst. Osseous and articular structures: Patellofemoral compartment: 2 mm defect in the cartilage over the lateral patellar eminence. No subch ondral edema. No patellar displacement. Medial compartment: Mild narrowing of the medial compartment. Superficial cartilaginous defect along the weightbearing surface of the tibial plateau. No marrow edema. Lateral compartment: Mild narrowing of the lateral compartment. Mild thinning and fissuring of the ca rtilage. No subchondral edema. MR/MR knee RT wo con* [id number] IMPRESSION: 1. Small suprapatellar joint effusion. 2. No fracture. 3. Mild narrowing of the medial and lateral compartments with beneficial carti laginous defects along the tibial plateaus. 4. No meniscal tear.
== END 2020-08-27 08:53 | disposition home or self-care (01) ==
LOC: RADWPI 08:55
PROVIDERS: PCP Family Medicine; Visit Provider Orthopaedic Surgery
DX: M25.461 Effusion, right knee (principal); M17.11 Unilateral primary osteoarthritis, right knee; Z98.890 Other specified postprocedural states
CPT/HCPCS: 73721

== ENCOUNTER → 2020-09-10 11:29 | Outpatient (BNVA) | payer BC, SELFPAY | PROVIDERS: PCP Family Medicine; Visit Provider Internal Medicine Rheumatology | DX: Z01.812 Encounter for preprocedural laboratory examination (principal); Z20.822 Contact with and (suspected) exposure to COVID-19 | CPT/HCPCS: 87635 ==

== ENCOUNTER 2020-09-14 08:13 | Outpatient (CLI) | payer BC, SELFPAY ==
--- NOTE | 2020-09-14 09:30 | CT_ITS ---
WS: [id number] HIGH-RESOLUTION CT CHEST TECHNIQUE: High-resolution Noncontrast CT of the chest with coronal and sagittal reformatted images. Inspiration, expiration, prone imaging. CLINICAL INFORMATION: M35.00 - Sicca syndrome, unspecified COMPARISON: CT 6 13,018 DLP: 964.[address] scans at [facility] use at least one of these dose optimization techniques: automat ed exposure control; mA and/or kV adjustment per patient size (includes targeted exams where dose is matched to clinical indication); or iterative reconstruction. FINDINGS: Both lungs are well aerated. No acute pulmonary infiltrates. No consolidation or pleural fluid. Previ ously described interlobular septal thickening is less prominent today. No evidence of progression. N o pleural plaques. No evidence of subpleural honeycombing or reticular opacities. Small noncalcified subpleural nodule right upper lobe measuring 5 mm. This appears stable compared to previous consideri ng differences in technique. No other suspicious pulmonary parenchymal opacities. Mild bronchiectasi s left greater than right upper lobes and lingula. Normal thyroid gland. No axillary or mediastinal lymphadenopathy. Normal caliber thoracic aorta. Adre nal glands are normal. Low-attenuation lesion left hepatic lobe nonspecific on this noncontrast CT bu t likely hepatic cyst or cavernous hemangioma measuring 12 mm. This is stable from previous. Prior ch olecystectomy. Hypertrophic changes thoracic spine. Mild thoracic curve. CT/CT chest wo con [id number] IMPRESSION: 1. No evidence of significant or progressed interstitial lung disease today. N o subpleural fibrosis or reticular opacities. Previously described interlobular septal thickening appears less prominent today. 2. Mild bronchiectasis in left greater than right upper lobes. Mild bronchiect asis in the lingula. 3. No calcified pleural plaques. 4. No mediastinal or hilar lymphadenopathy. 5. Noncalcified subpleural nodule superior segment right lower lobe posteriorl y measuring 5 mm is unchanged from previous. 6. Prior cholecystectomy. 7. Low-attenuation left hepatic cyst or cavernoma measuring 12 mm is unchanged .
--- NOTE | 2020-09-14 14:27 | PFTS_ITS ---
Date of Study:09/14/20 Date of Dictation: MECHANICS: Forced vital capacity (FVC) is normal. Forced expiratory volume in one second (FEV1) is normal. FEV1/FVC is normal. FLOW VOLUME LOOP: Normal. LUNG VOLUMES: Total lung capacity (TLC) is normal. Residual volume (RV) is normal. DIFFUSING CAPACITY FOR CARBON MONOXIDE: Normal. INTERPRETATION: The pulmonary function tests are normal . MTDD
== END 2020-09-14 08:14 | disposition home or self-care (01) ==
PROVIDERS: PCP Family Medicine; Visit Provider Internal Medicine Rheumatology
DX: M35.00 Sjogren syndrome, unspecified (principal)
CPT/HCPCS: 71250; 72040; 72100; 94010; 94726; 94729

== ENCOUNTER 2020-09-28 17:12 | Outpatient (CLI) | payer BC, SELFPAY ==
--- NOTE | 2020-09-28 17:30 | MR_ITS ---
WS: [id number] MRI CERVICAL SPINE NONCONTRAST TECHNIQUE: Sagittal T1, T2 and STIR imaging. Axial T2, gradient, and fiesta imaging. CLINICAL INFORMATION: M54.9 - Dorsalgia, unspecified COMPARISON: None. FINDINGS: Slight exaggeration normal cervical lordosis. ACDF C5-C6 with interbody bony fusion. Disc space narro wing worse at C4-5 and C6-7. Anterior hypertrophic changes. Mild cervical curve. Moderate spondylitic changes. C2-C3: Normal. C3-C4: Mild disc bulging with osteophytic ridging. Spinal canal and foramen are patent. C4-C5: Disc osteophyte complex with endplate ridging. Mild central canal stenosis. Mild bilateral bon y foraminal narrowing. Mild facet arthropathy. C5-C6: Postoperative changes ACDF. Spinal canal and foramen are patent. Mild facet arthropathy. C6-C7: Disc osteophyte complex with endplate ridging. Mild bilateral bony foraminal narrowing. Mild c entral canal stenosis. Mild facet arthropathy. C7-T1: No significant disc bulging. Spinal canal and foramen are patent. Visualized brain stem structures: Normal. Prevertebral soft tissues: Normal. MR/MR cervical spin wo con* [id number] IMPRESSION: 1. Postoperative changes ACDF C5-C6. Fusion appears solid. 2. Disc space narrowing worse at C4-5 and C6-7 with mild central canal stenosi s with small disc osteophyte protrusions. 3. Mild bilateral bony foraminal narrowing C4-5 and C6-7.
== END 2020-09-28 17:13 | disposition home or self-care (01) ==
PROVIDERS: PCP Family Medicine; Visit Provider Orthopaedic Surgery
DX: Z98.1 Arthrodesis status; M48.02 Spinal stenosis, cervical region; M50.221 Other cervical disc displacement at C4-C5 level; M25.78 Osteophyte, vertebrae
CPT/HCPCS: 72141

== ENCOUNTER → 2020-11-04 13:49 | Outpatient (BNVA) | payer BC, SELFPAY | PROVIDERS: PCP Family Medicine; Visit Provider Anesthesiology Pain Medicine | DX: G89.29 Other chronic pain (principal); M51.16 Intervertebral disc disorders with radiculopathy, lumbar region; M47.816 Spondylosis without myelopathy or radiculopathy, lumbar region; M54.2 Cervicalgia | CPT/HCPCS: 99214 ==

== ENCOUNTER → 2020-12-30 13:34 | Outpatient (BNVA) | payer BC, SELFPAY | PROVIDERS: PCP Family Medicine; Visit Provider Anesthesiology Pain Medicine | DX: G89.29 Other chronic pain (principal); M51.16 Intervertebral disc disorders with radiculopathy, lumbar region; M47.816 Spondylosis without myelopathy or radiculopathy, lumbar region; M54.2 Cervicalgia | CPT/HCPCS: 99214 ==

== ENCOUNTER 2021-04-05 08:01 | Outpatient (CLI) | payer BC, SELFPAY ==
--- NOTE | 2021-04-05 08:45 | MR_ITS ---
WS: [id number] MRI BRAIN WITHOUT CONTRAST HISTORY: G43.701 - Chronic migraine without aura, not intractable. COMPARISON: None available. TECHNIQUE: Diffusion imaging, multiplanar T1, T2 and FLAIR imaging obtained. No evidence for acute infarct or hemorrhage. [place]-white matter differentiation is normal. There are numerous bilateral, subcentimeter T2 and FLAIR signal hyperintensities in the supratentoria l white matter. These are in the subcortical distribution and noted bilaterally. There are a few T2 l esions in the periventricular region also. Greatest involving the frontal lobes. There are also a few areas of increased signal adjacent to the LEFT frontal horn and the LEFT occipital lobe which are no nspecific. There is unilateral increased T2 signal at the LEFT frontal horn and the occipital horn. Consistent w ith mild periventricular capping. Ventricles and extra-axial spaces are normal. No inferior displacement of cerebellar tonsils. The sella turcica and pituitary gland are unremarkabl e. Dural venous sinuses and [place] demonstrate no abnormality on this unenhanced studies. Paranasal sinuses: Clear. Mastoid air cells: Normal. Calvarium and scalp: Intact. MR/MR head wo con* [id number] IMPRESSION: 1. No acute infarct. 2. Numerous T2 and FLAIR signal hyperintensities in subcortical white matter. These are nonspecific and can be seen with history of migraines, small vessel i schemic disease, hypertension, smoking and diabetes. 3. LEFT unilateral ventricular T2 capping. This may be ependymitis granularis which is typically an anatomic variant. As it is unilateral additional etiologi es should be considered such as demyelination.
== END 2021-04-05 08:02 | disposition home or self-care (01) ==
LOC: RADSHAW 08:07
PROVIDERS: PCP Family Medicine; Visit Provider Specialist
DX: G43.701 Chronic migraine without aura, not intractable, with status migrainosus (principal)
CPT/HCPCS: 70551

== ENCOUNTER 2021-04-22 10:21 | Emergency (ER) | payer BC, SELFPAY ==
[2021-04-22 10:28] VITALS: BP 201/97; PULSE 89; RESP 14; TEMP 36.8; O2SAT 98; BMI 31.5
--- NOTE | 2021-04-22 10:46 | ED_ITS ---
Documented by User: JUNE Mason 04/22/21 13:01 HPI - General Adult General: Chief complaint: General Medical Stated complaint: CP w/ Bloodpressure 189/120 Time Seen by Provider: 04/22/21 10:38 History of Present Illness: Patient complains about sore throat. Says she is also felt very cold and has a headache. Is vaccinated with all 3 Covid vaccine opportunities. Patient also has a rash that started in her lower extremities after being placed on clonidine and then taken off. She says the rash itches on her lower legs. Says her blood pressure has not been well controlled and they've been working to get her blood pressure under control since February. Denies any current chest pain. Also denies shortness of breath did have some nausea yesterday. Associated symptoms: Reports headache(s), nausea and rash; Deny chest pain or dyspnea Review of Systems Const: Denies: fever(s), chills or body aches Eyes: Denies: eye discomfort ENMT: Reports: throat pain Card: Denies: chest pain Resp: Denies: dyspnea GI: Reports: nausea; Denies: abdominal pain Skin/Breast: Reports: rash and pruritus Neuro: Reports: headache(s) Psych: Denies: depression or suicidal ideation PFSH ED PFSH: Medical History Chest pain Dental caries Hypertension Mitral valve regurgitation Myalgia Positive BJ (antinuclear antibody) Rheumatoid factor positive Sjogrens syndrome Surgical History Hx of neck surgery S/P carpal tunnel release (~2014) S/P cholecystectomy (~1981) S/P total knee replacement (~1994) Family History Mother CAD (coronary artery disease) Cancer Lung disease Stroke Father Myocardial infarction CAD (coronary artery disease) Son Anesthesia complication Family/Other CAD (coronary artery disease) Cancer Lung disease Grandfather Cancer Grandmother Diabetes Denies family history of Clotting disorder Dementia Chronic kidney disease (CKD) Suicide Bleeding disorder Social History Smoking and tobacco status: never smoked Second hand smoke exposure: Yes Alcohol intake: never Lives independently: Yes Household members: spouse Marital status details: SPOUSE RECENT REMISSION WITH CANCER History of recent travel: No Physical Exam Const: COMMON NORMALS: no acute distress, patient oriented x3 and alert HENMT: COMMON NORMALS: normocephalic HEAD & SCALP: normocephalic OTHER: Neck tender left anterior no palpable lymphadenopathy noted Eye: COMMON NORMALS: EOMs intact bilaterally Neck/C-Spine: COMMON NORMALS: no JVD Resp: COMMON NORMALS: normal respiratory effort and No use of accessory muscles Cardio: COMMON NORMALS: no JVD GI: INSPECTION: Yes normal to inspection Extremity: COMMON NORMALS: normal to inspection and full ROM Neuro: COMMON NORMALS: patient oriented x3 SENSORIUM/ORIENTATION: Yes alert Psych: COMMON NORMALS: mental status grossly normal Skin: COMMON NORMALS: no rashes or lesions noted GENERAL SKIN EXAM: no rashes or lesions noted Course Vital Signs: Vital signs: Vital Signs Temperature 98.0 F 04/22/21 12:11 Pulse Rate 86 04/22/21 12:11 Respiratory Rate 18 04/22/21 12:11 Blood Pressure 111/67 04/22/21 12:11 Pulse Oximetry 95 04/22/21 12:11 [facility] - General Adult Medical Decision Making Patient has a UTI based on urinalysis results. CBC and chemistries look good no signs dehydration. Or kidney damage. Patient does have a drug allergy rash to her clonidine on her lower extremities which she is taking Benadryl and seems to be helping. I tried her on a old standby Terazosin, which has brought her blood pressure down to 160/80 here. She was encouraged to follow-up for primary care provider in the next couple weeks. Lab Data : 04/22/21 10:49 04/22/21 10:49 Laboratory Results WBC 5.7 10^3/uL (4.0-10.0) 04/22/21 10:49 RBC 4.86 10^6/uL (4.1-5.3) 04/22/21 10:49 Hgb 14.5 g/dL (11.5-15.3) 04/22/21 10:49 Hct 44.6 % (37.0-47.0) 04/22/21 10:49 MCV 91.8 fl (81-99) 04/22/21 10:49 MCH 29.8 pg (28.0-34.0) 04/22/21 10:49 MCHC 32.5 g/dL (30.0-36.0) 04/22/21 10:49 RDW 14.3 % (12.1-15.1) 04/22/21 10:49 Plt Count 212 10^3/cmm (130-400) 04/22/21 10:49 MPV 9.8 fL (7.4-10.4) 04/22/21 10:49 Neut % (Auto) 62.2 % 04/22/21 10:49 Lymph % (Auto) 24.6 % 04/22/21 10:49 [place] % (Auto) 10.4 % 04/22/21 10:49 Eos % (Auto) 2.1 % 04/22/21 10:49 Baso % (Auto) 0.5 % 04/22/21 10:49 Neut # (Auto) 3.54 10^3/uL (1.8-7.7) 04/22/21 10:49 Lymph # (Auto) 1.4 10^3/uL (0.8-4.8) 04/22/21 10:49 [place] # (Auto) 0.6 10^3/uL (0.2-0.9) 04/22/21 10:49 Eos # (Auto) 0.1 10^3/uL (0.0-0.8) 04/22/21 10:49 Baso # (Auto) 0.0 10^3/uL (0.0-0.1) 04/22/21 10:49 Nucleated RBC % (auto) 0 % 04/22/21 10:49 Nucleated RBCs # 0.0 /100WBC 04/22/21 10:49 Sodium 141 mmol/L (136-145) 04/22/21 10:49 Potassium 3.6 mmol/L (3.5-5.1) 04/22/21 10:49 Chloride 102 mmol/L (98-107) 04/22/21 10:49 Carbon Dioxide 27 mmol/L (22-29) 04/22/21 10:49 Anion Gap 15.6 (5-19) 04/22/21 10:49 BUN 10 mg/dL (8-23) 04/22/21 10:49 Creatinine 0.9 mg/dL (0.5-0.9) 04/22/21 10:49 GFR Calculation 63.7 mL/min (90-130) L 04/22/21 10:49 Glucose 103 mg/dL (65-115) 04/22/21 10:49 Calculated Osmolality 291 mOsm/kg (285-295) 04/22/21 10:49 Calcium 9.8 mg/dL (8.5-10.5) 04/22/21 10:49 Total Bilirubin 0.5 mg/dL (0.15-1.2) 04/22/21 10:49 AST 61 U/L (0-32) H 04/22/21 10:49 ALT 69 U/L (0-33) H 04/22/21 10:49 Alkaline Phosphatase 144 IU/L (35-105) H 04/22/21 10:49 Total Protein 8.4 g/dL (6.6-8.7) 04/22/21 10:49 Albumin 4.7 g/dL (3.5-5.2) 04/22/21 10:49 Globulin 3.7 g/dL (1.3-4.6) 04/22/21 10:49 Urine Color Yellow (Yellow) 04/22/21 11:00 Urine Appearance Hazy (CLEAR) A 04/22/21 11:00 Urine pH 8 (5-7) H 04/22/21 11:00 Ur Specific [place] 1.010 (1.005-1.030) 04/22/21 11:00 Urine Protein Neg (Negative) 04/22/21 11:00 Urine Glucose (UA) Norm (Normal) 04/22/21 11:00 Urine Ketones Negative (Negative) 04/22/21 11:00 Urine Blood Neg (Negative) 04/22/21 11:00 Urine Nitrate Negative (Negative) 04/22/21 11:00 Urine Bilirubin Neg (Negative) 04/22/21 11:00 Prot Sulfosalicylic Acd Negative (Negative) 04/22/21 11:00 Urine Urobilinogen Neg mg/dL (Negative) 04/22/21 11:00 Ur Leukocyte Esterase 2+ (Negative) H 04/22/21 11:00 Urine RBC Rare /hpf (0-2) 04/22/21 11:00 Urine WBC 55-80 /hpf (0-5) H 04/22/21 11:00 Ur Squamous Epith Cells 0-4 /hpf (0-5) H 04/22/21 11:00 Amorphous Sediment Not Reportable 04/22/21 11:00 Urine Bacteria 2+ /hpf (NONE) H 04/22/21 11:00 Influenza Type A Ag Negative (Negative) 04/22/21 11:00 Influenza Type B Ag Negative (Negative) 04/22/21 11:00 Discharge Plan Discharge Patient Disposition: Home Clinical Impression: UTI (urinary tract infection), HTN (hypertension), Allergic drug rash Condition: Stable Prescriptions: New fosfomycin tromethamine 3 gram packet 1 packet PO ONCE Qty: 1 0RF terazosin 5 mg capsule 5 mg PO DAILY Qty: 20 0RF Rx Instructions: at bedtime No Action OTC thyroid care PO 0RF biotin PO 0RF Bioflavonoids, Lehigh Powder PO 0RF Alive Once Daily Women 50 Plus 800-100 mcg tablet PO 0RF Adult Probiotic 3 billion cell capsule 3,000 mmu cells PO DAILY 0RF magnesium aspartate HCl 61 mg (615 mg) tablet,delayed release (DR/EC) 61 mg PO DAILY 0RF cholecalciferol (vitamin D3) 50 mcg (2,000 unit) capsule 50 mcg PO DAILY 0RF zinc 50 mg tablet 50 mg PO DAILY 0RF vitamin E 200 unit capsule 200 unit PO DAILY 0RF omega-3 fatty acids [[place]-3] 1,000 mg capsule 1,000 mg PO DAILY 0RF methylprednisolone acetate [Depo-Medrol] 80 mg/mL suspension 80 mg intra-articular ONCE Qty: 1 0RF methylprednisolone acetate [Depo-Medrol] 40 mg/mL suspension 40 mg intra-articular ONCE Qty: 1 0RF bupivacaine (PF) 0.25 % (2.5 mg/mL) solution 1 ml intra-articular ONCE Qty: 1 0RF diltiazem HCl 240 mg capsule,ext.rel 24h degradable 240 mg PO BID 0RF citalopram 10 mg tablet 10 mg PO DAILY 0RF clonidine HCl 0.1 mg tablet 0.1 mg PO BID 0RF alprazolam 0.25 mg tablet 0.25 mg PO .1/2 tab HS 0RF doxycycline hyclate 100 mg tablet 100 mg PO BID 7 Days Qty: 14 0RF Discharge Orders: Discharge ED (Routine); Ordered 04/22/21 Ordered By: Dameon Martinez Referrals: Ingris Bee FNP [Primary Care Provider] - Discharge Diet: Usual diet Discharge Activity: Resume usual activity Patient Instructions: Urinary Tract Infection in Women (ED), Chronic Hypertension (ED) Activity Restrictions/Additional Instructions: Follow-up with medical provider as directed. Take medications as prescribed. Return to the ER or your medical provider if condition worsens. Please read and understand discharge instructions. If any questions ask please. Check blood pressure readings twice a day and report those readings to your primary care provider after 2 weeks. Coding Level of Care Code ED Medical Facilities Section Director for Chg Fwd Exam Comprehensive Documented by User: Enrique Henley MD 04/26/21 23:07 HPI - General Adult General: Chief complaint: General Medical Stated complaint: CP w/ Bloodpressure 189/120 Time Seen by Provider: 04/22/21 10:38 [facility] ED PFSH: Medical History Chest pain Dental caries Hypertension Mitral valve regurgitation Myalgia Positive BJ (antinuclear antibody) Rheumatoid factor positive Sjogrens syndrome Surgical History Hx of neck surgery S/P carpal tunnel release (~2014) S/P cholecystectomy (~1981) S/P total knee replacement (~1994) Family History Mother CAD (coronary artery disease) Cancer Lung disease Stroke Father Myocardial infarction CAD (coronary artery disease) Son Anesthesia complication Family/Other CAD (coronary artery disease) Cancer Lung disease Grandfather Cancer Grandmother Diabetes Denies family history of Clotting disorder Dementia Chronic kidney disease (CKD) Suicide Bleeding disorder Social History Smoking and tobacco status: never smoked Second hand smoke exposure: Yes Alcohol intake: never Lives independently: Yes Household members: spouse Marital status details: SPOUSE RECENT REMISSION WITH CANCER History of recent travel: No Course Vital Signs: Vital signs: Vital Signs Temperature 98.0 F 04/22/21 12:11 Pulse Rate 86 04/22/21 12:11 Respiratory Rate 18 04/22/21 12:11 Blood Pressure 111/67 04/22/21 12:11 Pulse Oximetry 95 04/22/21 12:11 MDM - General Adult Medical Decision Making Patient has a UTI based on urinalysis results. CBC and chemistries look good no signs dehydration. Or kidney damage. Patient does have a drug allergy rash to her clonidine on her lower extremities which she is taking Benadryl and seems to be helping. I tried her on a old standby Terazosin, which has brought her blood pressure down to 160/80 here. She was encouraged to follow-up for primary care provider in the next couple weeks. I have reviewed this documentation by Dameon Henley MD Emergency Medicine Lab Data : 04/22/21 10:49 04/22/21 10:49 Laboratory Results WBC 5.7 10^3/uL (4.0-10.0) 04/22/21 10:49 RBC 4.86 10^6/uL (4.1-5.3) 04/22/21 10:49 Hgb 14.5 g/dL (11.5-15.3) 04/22/21 10:49 Hct 44.6 % (37.0-47.0) 04/22/21 10:49 MCV 91.8 fl (81-99) 04/22/21 10:49 MCH 29.8 pg (28.0-34.0) 04/22/21 10:49 MCHC 32.5 g/dL (30.0-36.0) 04/22/21 10:49 RDW 14.3 % (12.1-15.1) 04/22/21 10:49 Plt Count 212 10^3/cmm (130-400) 04/22/21 10:49 MPV 9.8 fL (7.4-10.4) 04/22/21 10:49 Neut % (Auto) 62.2 % 04/22/21 10:49 Lymph % (Auto) 24.6 % 04/22/21 10:49 [place] % (Auto) 10.4 % 04/22/21 10:49 Eos % (Auto) 2.1 % 04/22/21 10:49 Baso % (Auto) 0.5 % 04/22/21 10:49 Neut # (Auto) 3.54 10^3/uL (1.8-7.7) 04/22/21 10:49 Lymph # (Auto) 1.4 10^3/uL (0.8-4.8) 04/22/21 10:49 [place] # (Auto) 0.6 10^3/uL (0.2-0.9) 04/22/21 10:49 Eos # (Auto) 0.1 10^3/uL (0.0-0.8) 04/22/21 10:49 Baso # (Auto) 0.0 10^3/uL (0.0-0.1) 04/22/21 10:49 Nucleated RBC % (auto) 0 % 04/22/21 10:49 Nucleated RBCs # 0.0 /100WBC 04/22/21 10:49 Sodium 141 mmol/L (136-145) 04/22/21 10:49 Potassium 3.6 mmol/L (3.5-5.1) 04/22/21 10:49 Chloride 102 mmol/L (98-107) 04/22/21 10:49 Carbon Dioxide 27 mmol/L (22-29) 04/22/21 10:49 Anion Gap 15.6 (5-19) 04/22/21 10:49 BUN 10 mg/dL (8-23) 04/22/21 10:49 Creatinine 0.9 mg/dL (0.5-0.9) 04/22/21 10:49 GFR Calculation 63.7 mL/min (90-130) L 04/22/21 10:49 Glucose 103 mg/dL (65-115) 04/22/21 10:49 Calculated Osmolality 291 mOsm/kg (285-295) 04/22/21 10:49 Calcium 9.8 mg/dL (8.5-10.5) 04/22/21 10:49 Total Bilirubin 0.5 mg/dL (0.15-1.2) 04/22/21 10:49 AST 61 U/L (0-32) H 04/22/21 10:49 ALT 69 U/L (0-33) H 04/22/21 10:49 Alkaline Phosphatase 144 IU/L (35-105) H 04/22/21 10:49 Total Protein 8.4 g/dL (6.6-8.7) 04/22/21 10:49 Albumin 4.7 g/dL (3.5-5.2) 04/22/21 10:49 Globulin 3.7 g/dL (1.3-4.6) 04/22/21 10:49 Urine Color Yellow (Yellow) 04/22/21 11:00 Urine Appearance Hazy (CLEAR) A 04/22/21 11:00 Urine pH 8 (5-7) H 04/22/21 11:00 Ur Specific [place] 1.010 (1.005-1.030) 04/22/21 11:00 Urine Protein Neg (Negative) 04/22/21 11:00 Urine Glucose (UA) Norm (Normal) 04/22/21 11:00 Urine Ketones Negative (Negative) 04/22/21 11:00 Urine Blood Neg (Negative) 04/22/21 11:00 Urine Nitrate Negative (Negative) 04/22/21 11:00 Urine Bilirubin Neg (Negative) 04/22/21 11:00 Prot Sulfosalicylic Acd Negative (Negative) 04/22/21 11:00 Urine Urobilinogen Neg mg/dL (Negative) 04/22/21 11:00 Ur Leukocyte Esterase 2+ (Negative) H 04/22/21 11:00 Urine RBC Rare /hpf (0-2) 04/22/21 11:00 Urine WBC 55-80 /hpf (0-5) H 04/22/21 11:00 Ur Squamous Epith Cells 0-4 /hpf (0-5) H 04/22/21 11:00 Amorphous Sediment Not Reportable 04/22/21 11:00 Urine Bacteria 2+ /hpf (NONE) H 04/22/21 11:00 Influenza Type A Ag Negative (Negative) 04/22/21 11:00 Influenza Type B Ag Negative (Negative) 04/22/21 11:00 Discharge Plan Discharge Patient Disposition: Home Clinical Impression: UTI (urinary tract infection), HTN (hypertension), Allergic drug rash Condition: Stable Prescriptions: New fosfomycin tromethamine 3 gram packet 1 packet PO ONCE Qty: 1 0RF terazosin 5 mg capsule 5 mg PO DAILY Qty: 20 0RF Rx Instructions: at bedtime No Action OTC thyroid care PO 0RF biotin PO 0RF Bioflavonoids, Lehigh Powder PO 0RF Alive Once Daily Women 50 Plus 800-100 mcg tablet PO 0RF Adult Probiotic 3 billion cell capsule 3,000 mmu cells PO DAILY 0RF magnesium aspartate HCl 61 mg (615 mg) tablet,delayed release (DR/EC) 61 mg PO DAILY 0RF cholecalciferol (vitamin D3) 50 mcg (2,000 unit) capsule 50 mcg PO DAILY 0RF zinc 50 mg tablet 50 mg PO DAILY 0RF vitamin E 200 unit capsule 200 unit PO DAILY 0RF omega-3 fatty acids [[place]-3] 1,000 mg capsule 1,000 mg PO DAILY 0RF methylprednisolone acetate [Depo-Medrol] 80 mg/mL suspension 80 mg intra-articular ONCE Qty: 1 0RF methylprednisolone acetate [Depo-Medrol] 40 mg/mL suspension 40 mg intra-articular ONCE Qty: 1 0RF bupivacaine (PF) 0.25 % (2.5 mg/mL) solution 1 ml intra-articular ONCE Qty: 1 0RF diltiazem HCl 240 mg capsule,ext.rel 24h degradable 240 mg PO BID 0RF citalopram 10 mg tablet 10 mg PO DAILY 0RF clonidine HCl 0.1 mg tablet 0.1 mg PO BID 0RF alprazolam 0.25 mg tablet 0.25 mg PO .1/2 tab HS 0RF doxycycline hyclate 100 mg tablet 100 mg PO BID 7 Days Qty: 14 0RF Discharge Orders: Discharge ED (Routine); Ordered 04/22/21 Ordered By: Dameon Martinez Referrals: Ingris Bee FNP [Primary Care Provider] - Discharge Diet: Usual diet Discharge Activity: Resume usual activity Patient Instructions: Urinary Tract Infection in Women (ED), Chronic Hypertension (ED) Activity Restrictions/Additional Instructions: Follow-up with medical provider as directed. Take medications as prescribed. Return to the ER or your medical provider if condition worsens. Please read and understand discharge instructions. If any questions ask please. Check blood pressure readings twice a day and report those readings to your primary care provider after 2 weeks. Coding Level of Care Code ED Medical Facilities Section Director for Harshad Fwd Exam Comprehensive
[2021-04-22] MEDS: terazosin 5 mg Capsule PO (10:53)
[2021-04-22 10:56] LABS: Basophils % 0.5 %; Eosinophils # 0.1 10^3/uL (0.0-0.8); Eosinophils % 2.1 %; Hematocrit 44.6 % (37.0-47.0); Hemoglobin 14.5 g/dL (11.5-15.3); Lymphocytes # 1.4 10^3/uL (0.8-4.8); Lymphocytes % 24.6 %; Mean Corpuscular HGB Conc 32.5 g/dL (30.0-36.0); Mean Corpuscular Hemoglobin 29.8 pg (28.0-34.0); Mean Corpuscular Volume 91.8 fl (81-99); Mean Platelet Volume 9.8 fL (7.4-10.4); Monocytes # 0.6 10^3/uL (0.2-0.9); Monocytes % 10.4 %; Neutrophils # 3.54 10^3/uL (1.8-7.7); Neutrophils % 62.2 %; Nucleated Red Blood Cells % 0 %; Platelet Count 212 10^3/cmm (130-400); Red Blood Count 4.86 10^6/uL (4.1-5.3); Red Cell Distribution Width 14.3 % (12.1-15.1); White Blood Count 5.7 10^3/uL (4.0-10.0)
[2021-04-22 11:31] LABS: Alanine Aminotransferase 69 U/L (0-33); Albumin Level 4.7 g/dL (3.5-5.2); Alkaline Phosphatase 144 IU/L (35-105); Anion Gap 15.6 (5-19); Aspartate Amino Transferase 61 U/L (0-32); Blood Urea Nitrogen 10 mg/dL (8-23); Calcium 9.8 mg/dL (8.5-10.5); Carbon Dioxide 27 mmol/L (22-29); Chloride 102 mmol/L (98-107); Globulin 3.7 g/dL (1.3-4.6); Glomerular Filtration Rate 63.7 mL/min (90-130); Glucose 103 mg/dL (65-115); Osmolality Calculated 291 mOsm/kg (285-295); Potassium 3.6 mmol/L (3.5-5.1); Sodium 141 mmol/L (136-145); Total Bilirubin 0.5 mg/dL (0.15-1.2); Total Protein 8.4 g/dL (6.6-8.7)
[2021-04-22 11:37] LABS: Add Urine Microscopic? YES; Bilirubin Urine Neg (Negative); Blood Urine Neg (Negative); Glucose Urine UA Norm (Normal); Ketones Urine Negative (Negative); Leukocyte Esterase Urine 2+ (Negative); Nitrate Urine Negative (Negative); Protein Urine Neg (Negative); Sulfosalicylic Acid Urine Negative (Negative); Urine Appearance Hazy (CLEAR); Urine Color Yellow (Yellow); Urobilinogen Urine Neg (Negative); pH Urine 8 (5-7)
[2021-04-22 11:38] LABS: Add Urine Culture? Yes; Bacteria Urine 2+ /hpf; RBC Urine RARE /hpf (0-2); Squamous Epithelial Cell Urine 0-4 /hpf (0-5); WBC Urine 55-80 /hpf (0-5)
[2021-04-22 11:50] LABS: Influenza A by IFA Negative (Negative)
[2021-04-22 11:51] LABS: Influenza B by IFA Negative (Negative)
[2021-04-22 12:11] VITALS: BP 111/67; PULSE 86; RESP 18; TEMP 36.7; O2SAT 95
== END 2021-04-22 12:15 | disposition home or self-care (01) ==
PROVIDERS: Emergency Provider Nurse Practitioner Family; PCP Registered Nurse
DX: N39.0 Urinary tract infection, site not specified (principal); I10 Essential (primary) hypertension; L27.0 Generalized skin eruption due to drugs and medicaments taken internally; T46.5X5A Adverse effect of other antihypertensive drugs, initial encounter; Z77.22 Contact with and (suspected) exposure to environmental tobacco smoke (acute) (chronic)
CPT/HCPCS: 80053; 81001; 85025; 87086; 87804; 99283

== ENCOUNTER 2021-04-24 18:48 | Emergency (ER) | payer BC, SELFPAY ==
[2021-04-24 19:16] VITALS: BP 158/96; PULSE 101; RESP 18; TEMP 36.6; O2SAT 98; BMI 31.5
[2021-04-24 20:20] VITALS: BP 151/91
[2021-04-24 20:36] LABS: Basophils % 0.6 %; Eosinophils # 0.2 10^3/uL (0.0-0.8); Eosinophils % 2.8 %; Hematocrit 43.1 % (37.0-47.0); Hemoglobin 13.8 g/dL (11.5-15.3); Lymphocytes # 1.2 10^3/uL (0.8-4.8); Mean Corpuscular Volume 93.7 fl (81-99); Mean Platelet Volume 9.9 fL (7.4-10.4); Monocytes # 0.5 10^3/uL (0.2-0.9); Monocytes % 9.2 %; Neutrophils # 3.44 10^3/uL (1.8-7.7); Neutrophils % 64.2 %; Nucleated Red Blood Cells % 0 %; Platelet Count 188 10^3/cmm (130-400); Red Cell Distribution Width 14.2 % (12.1-15.1); White Blood Count 5.4 10^3/uL (4.0-10.0)
--- NOTE | 2021-04-24 20:51 | XRR_ITS ---
PROCEDURE INFORMATION: Exam: XR Chest Exam date and time: 04/24/2021 8:51 PM Age: 61 years old Clinical indication: Other: Vomiting TECHNIQUE: Imaging protocol: XR of the chest. Views: 1 view. COMPARISON: CT chest [facility] [id number] 09/14/2020 9:04 AM FINDINGS: Lungs: Minimal linear opacities are seen in the lung bases likely representing atelectasis. Pleural spaces: Unremarkable. No pleural effusion. No pneumothorax. Heart/Mediastinum: Unremarkable. No cardiomegaly. Bones/joints: Unremarkable. XR/XR chest 1V portable [id number] IMPRESSION: There are no acute chest findings.
[2021-04-24 21:01] LABS: Alanine Aminotransferase 85 U/L (0-33); Albumin Level 4.4 g/dL (3.5-5.2); Alkaline Phosphatase 126 IU/L (35-105); Anion Gap 16.8 (5-19); Aspartate Amino Transferase 87 U/L (0-32); Blood Urea Nitrogen 12 mg/dL (8-23); Calcium 9.2 mg/dL (8.5-10.5); Carbon Dioxide 25 mmol/L (22-29); Chloride 103 mmol/L (98-107); Globulin 3.7 g/dL (1.3-4.6); Glomerular Filtration Rate 72.9 mL/min (90-130); Glucose 86 mg/dL (65-115); Osmolality Calculated 291 mOsm/kg (285-295); Potassium 3.8 mmol/L (3.5-5.1); Sodium 141 mmol/L (136-145); Total Bilirubin 0.2 mg/dL (0.15-1.2); Total Protein 8.1 g/dL (6.6-8.7)
--- NOTE | 2021-04-24 21:05 | ED_ITS ---
HPI - Nausea/Vomiting/Diarrhea General: Chief complaint: Nausea/Vomiting/Diarrhea Stated complaint: High Blood Pressure\Upper ADB Pain Time Seen by Provider: 04/24/21 20:33 Source: patient History of Present Illness: 61-year-old female seen 2 days ago in the emergency department. She presents again with several complaints. The first is that of an enlarged lymph node and sore throat to her left neck. The second is that of continued dysuria with change in color of her urine. She denies any belly pain. She states that she has vomited a couple of times, and been nauseated today. After she vomited, she had chills, no documented fever. MD elicited complaint: nausea and vomiting Pertinent past history: other Onset (ago): day(s) Description of vomiting: watery Associated nausea: Yes Associated abdominal pain: No Location of pain: None Radiation: other Pain consistency: other Exacerbating factors: eating Relieving factors: none Context: recent antibiotic use Associated symtoms: Reports anxiety, dysuria, fatigue, fevers/chills and nausea; Denies chest pain, cough, diaphoresis, headache(s), anorexia, palpitations or short of breath Review of Systems Const: Reports: fatigue; Denies: diaphoresis ENMT: Reports: throat pain Card: Denies: chest pain or palpitations GI: Reports: nausea : Reports: dysuria Neuro: Denies: headache(s) Psych: Reports: anxiety Froylan/Lymph: Reports: enlarged lymph nodes [facility] ED PFSH: Medical History Chest pain Dental caries Hypertension Mitral valve regurgitation Myalgia Positive BJ (antinuclear antibody) Rheumatoid factor positive Sjogrens syndrome Surgical History Hx of neck surgery S/P carpal tunnel release (~2014) S/P cholecystectomy (~1981) S/P total knee replacement (~1994) Family History Mother CAD (coronary artery disease) Cancer Lung disease Stroke Father Myocardial infarction CAD (coronary artery disease) Son Anesthesia complication Family/Other CAD (coronary artery disease) Cancer Lung disease Grandfather Cancer Grandmother Diabetes Denies family history of Clotting disorder Dementia Chronic kidney disease (CKD) Suicide Bleeding disorder Social History Smoking and tobacco status: never smoked Second hand smoke exposure: Yes Alcohol intake: never Lives independently: Yes Household members: spouse Marital status details: SPOUSE RECENT REMISSION WITH CANCER History of recent travel: No Physical Exam Const: GENERAL APPEARANCE: cooperative; not ill appearing HENMT: COMMON NORMALS: normocephalic, atraumatic, external ears normal and Normal external nose present HEAD & SCALP: normocephalic and atraumatic FACE & SINUS: normal facial exam and face symmetric NOSE: Normal external nose present and Normal nares present EXTERNAL EAR: Yes external ears normal Eye: COMMON NORMALS: Equal, round and reactive pupils present and EOMs intact bilaterally PUPIL: Yes Equal, round and reactive pupils present Neck/C-Spine: GENERAL: Yes lymphadenopathy Lymphadenopathy location: submandibular (left) Chest: COMMONS NORMALS: normal inspection of the chest Resp: COMMON NORMALS: normal respiratory effort, No use of accessory muscles and clear to auscultation bilaterally AUSCULTATION: clear to auscultation bilaterally Cardio: COMMON NORMALS: regular rate and regular rhythm RATE: regular rate RHYTHM: regular rhythm GI: COMMON NORMALS: Normal to inspection, nondistended, normoactive bowel sounds present, Soft to palpation and non-tender PALPATION: Yes Soft to palpation Extremity: COMMON NORMALS: normal to inspection Neuro: ALYCIA COMA SCALE: document GCS findings Alycia coma scale eye opening: Spontaneous [place] coma scale verbal response: Orientated Alycia coma scale motor response: Obey commands Alycia coma scale total score: 15 Course Vital Signs: Vital signs: Vital Signs Temperature 97.9 F 04/24/21 19:16 Pulse Rate 101 H 04/24/21 19:16 Respiratory Rate 18 04/24/21 19:16 Blood Pressure 151/91 04/24/21 20:20 Pulse Oximetry 98 04/24/21 19:16 MDM - Nausea/Vomiting/Diarrhea Medical Decision Making Chest x-ray is negative. Urinalysis is negative. Blood pressure has not been overly high since she is here. She does have lymphadenitis of the submandibular gland. She was bitten by cat the other day. She has multiple antibiotic allergies as well as antihypertensive allergies. We will have her check her blood pressure twice daily and report numbers to her physician. We will cover her with doxycycline for now. She is allergic to both penicillin and sulfa. She will be tested for COVID-19 given her vomiting, sore throat, and other symptoms. Her urinalysis is negative. Lab Data : 04/24/21 20:04/24/21 Laboratory Results WBC 5.4 10^3/uL (4.0-10.0) 04/24/21: RBC 4.60 10^6/uL (4.1-5.3) 04/24/21: Hgb 13.8 g/dL (11.5-15.3) 04/24/21: Hct 43.1 % (37.0-47.0) 04/24/21: MCV 93.7 fl (81-99) 04/24/21: MCH 30.0 pg (28.0-34.0) 04/24/21: MCHC 32.0 g/dL (30.0-36.0) 04/24/21 RDW 14.2 % (12.1-15.1) 04/24/21 Plt Count 188 10^3/cmm (130-400) 04/24/21 MPV 9.9 fL (7.4-10.4) 04/24/21 Neut % (Auto) 64.2 % 04/24/21 Lymph % (Auto) 23.0 % 04/24/21 Antelope % (Auto) 9.2 % 04/24/21: Eos % (Auto) 2.8 % 04/24/21 Baso % (Auto) 0.6 % 04/24/21 Neut # (Auto) 3.44 10^3/uL (1.8-7.7) 04/24/21 Lymph # (Auto) 1.2 10^3/uL (0.8-4.8) 04/24/21 Antelope # (Auto) 0.5 10^3/uL (0.2-0.9) 04/24/21 Eos # (Auto) 0.2 10^3/uL (0.0-0.8) 04/24/21 Baso # (Auto) 0.0 10^3/uL (0.0-0.1) 04/24/21 20: Nucleated RBC % (auto) 0 % 04/24/21: Nucleated RBCs # 0.0 /100WBC 04/24/21 20: Sodium 141 mmol/L (136-145) 04/24/21 20: Potassium 3.8 mmol/L (3.5-5.1) 04/24/21: Chloride 103 mmol/L (98-107) 04/24/21 20: Carbon Dioxide 25 mmol/L (22-29) 04/24/21: Anion Gap 16.8 (5-19) 04/24/21: BUN 12 mg/dL (8-23) 04/24/21: Creatinine 0.8 mg/dL (0.5-0.9) 04/24/21: GFR Calculation 72.9 mL/min (90-130) L 04/24/21: Glucose 86 mg/dL (65-115) 04/24/21: Calculated Osmolality 291 mOsm/kg (285-295) 04/24/21: Calcium 9.2 mg/dL (8.5-10.5) 04/24/21: Total Bilirubin 0.2 mg/dL (0.15-1.2) 04/24/21 20: AST 87 U/L (0-32) H 04/24/21: ALT 85 U/L (0-33) H 04/24/21: Alkaline Phosphatase 126 IU/L (35-105) H 04/24/21 20: Total Protein 8.1 g/dL (6.6-8.7) 04/24/21: Albumin 4.4 g/dL (3.5-5.2) 04/24/21: Globulin 3.7 g/dL (1.3-4.6) 04/24/21 20: Urine Color Yellow (Yellow) 04/24/21 21: Urine Appearance Clear (CLEAR) 04/24/21 21: Urine pH 5 (5-7) 04/24/21 21: Ur Specific [place] 1.015 (1.005-1.030) 04/24/21 21:06 Urine Protein Neg (Negative) 04/24/21 21:06 Urine Glucose (UA) Norm (Normal) 04/24/21 21:06 Urine Ketones 1+ (Negative) H 04/24/21 21:06 Urine Blood Neg (Negative) 04/24/21 21:06 Urine Nitrate Negative (Negative) 04/24/21 21:06 Urine Bilirubin Neg (Negative) 04/24/21 21:06 Urine Urobilinogen Norm mg/dL (Negative) 04/24/21 21:06 Ur Leukocyte Esterase Negative (Negative) 04/24/21 21:06 Discharge Plan Discharge Patient Disposition: Home Clinical Impression: Lymphadenitis Condition: Stable Prescriptions: New doxycycline hyclate 100 mg tablet 100 mg PO BID 7 Days Qty: 14 0RF No Action OTC thyroid care PO 0RF biotin PO 0RF Bioflavonoids, [place] Powder PO 0RF Alive Once Daily Women 50 Plus 800-100 mcg tablet PO 0RF Adult Probiotic 3 billion cell capsule 3,000 mmu cells PO DAILY 0RF magnesium aspartate HCl 61 mg (615 mg) tablet,delayed release (DR/EC) 61 mg PO DAILY 0RF cholecalciferol (vitamin D3) 50 mcg (2,000 unit) capsule 50 mcg PO DAILY 0RF zinc 50 mg tablet 50 mg PO DAILY 0RF vitamin E 200 unit capsule 200 unit PO DAILY 0RF omega-3 fatty acids [Super [place]-3] 1,000 mg capsule 1,000 mg PO DAILY 0RF methylprednisolone acetate [Depo-Medrol] 80 mg/mL suspension 80 mg intra-articular ONCE Qty: 1 0RF methylprednisolone acetate [Depo-Medrol] 40 mg/mL suspension 40 mg intra-articular ONCE Qty: 1 0RF bupivacaine (PF) 0.25 % (2.5 mg/mL) solution 1 ml intra-articular ONCE Qty: 1 0RF diltiazem HCl 240 mg capsule,ext.rel 24h degradable 240 mg PO BID 0RF citalopram 10 mg tablet 10 mg PO DAILY 0RF clonidine HCl 0.1 mg tablet 0.1 mg PO BID 0RF alprazolam 0.25 mg tablet 0.25 mg PO .1/2 tab HS 0RF fosfomycin tromethamine 3 gram packet 1 packet PO ONCE Qty: 1 0RF terazosin 5 mg capsule 5 mg PO DAILY Qty: 20 0RF Rx Instructions: at bedtime Discharge Orders: Discharge ED (Routine); Ordered 04/24/21 Ordered By: Charles Yi Referrals: Ingris Bee FNP [Primary Care Provider] - 1-3 days Patient Instructions: Lymphadenitis Activity Restrictions/Additional Instructions: Follow-up with your doctor in 2 to 3 days. Return for vomiting liquids or medications, fever greater than 100 despite 2-3 doses of antibiotics, worsening pain despite treatment. Check your blood pressure twice daily, and report numbers to your doctor. You should stay at home, until the results of your COVID-19 PCR test are returned and deemed negative. Coding Level of Care Code ED Peripheral Vascular Tech for [place] Fwd Exam Comprehensive
[2021-04-24 21:29] LABS: Add Urine Microscopic? NO; Charge for UA Resulting for Rev
[2021-04-24 21:38] LABS: Bilirubin Urine Neg (Negative); Blood Urine Neg (Negative); Glucose Urine UA Norm (Normal); Ketones Urine 1+ (Negative); Leukocyte Esterase Urine Negative (Negative); Nitrate Urine Negative (Negative); Protein Urine Neg (Negative); Specific Gravity, Urine 1.015 (1.005-1.030); Urine Appearance Clear (CLEAR); Urine Color Yellow (Yellow); Urobilinogen Urine Norm (Negative); pH Urine 5 (5-7)
== END 2021-04-24 23:04 | disposition home or self-care (01) ==
PROVIDERS: Nurse Practitioner Family; Emergency Provider Emergency Medicine; PCP Registered Nurse
DX: I88.9 Nonspecific lymphadenitis, unspecified (principal); I10 Essential (primary) hypertension; Z77.22 Contact with and (suspected) exposure to environmental tobacco smoke (acute) (chronic)
CPT/HCPCS: 71045; 80053; 81003; 85025; 99283

== ENCOUNTER 2021-05-10 09:06 | Outpatient (CLI) | payer BC, SELFPAY ==
--- NOTE | 2021-05-10 09:13 | US_ITS ---
WS: [id number] THYROID ULTRASOUND HISTORY: MULTIPLE THYROID NODULES COMPARISON: None available. Right lobe: 1.8 cm x 2.0 cm x 4.8 cm (w x ap x l). Volume: 9.1 cm3. Slightly enlarged thyroid. There is a very minimally hypoechoic nodule from the lateral mid thyroid m easuring 6 x 6 x 7 mm. No increased vascularity. No suspicious features or calcification. The remaini ng thyroid gland is negative. Left lobe: 1.8 cm x 1.9 cm x 4.8 cm (w x ap x l). Volume: 8.5 cm3. Minimally prominent gland with a few small colloid cysts. No mass. No calcification. Isthmus: 0.2 cm. US/US thyroid [id number] IMPRESSION: 1. Mild enlargement of the thyroid gland. 2. There are no suspicious masses or calcifications. 3. Subcentimeter minimally hypoechoic nodule with a maximum diameter 7 mm in t he lateral RIGHT thyroid.
== END 2021-05-10 09:07 | disposition home or self-care (01) ==
LOC: RAD 09:09
PROVIDERS: PCP Registered Nurse; Visit Provider Registered Nurse
DX: E04.2 Nontoxic multinodular goiter (principal)
CPT/HCPCS: 76536

== ENCOUNTER 2021-06-13 10:16 | Outpatient (CLI) | payer BC, SELFPAY ==
[2021-06-13 11:32] LABS: Free T4 Free Thyroxine 0.95 ng/dL (0.82-1.77); Thyroid Stimulating Hormone 6.67 uIU/mL (0.27-4.20)
[2021-06-15 00:47] LABS: T3 Total 135 ng/dL (76-181)
[2021-06-17 13:12] LABS: Plasma Renin Activity LC/MS/MS 0.25 ng/mL/h (0.25-5.82)
== END 2021-06-13 10:17 | disposition home or self-care (01) ==
PROVIDERS: PCP Registered Nurse; Visit Provider Internal Medicine
DX: E04.2 Nontoxic multinodular goiter (principal); I10 Essential (primary) hypertension; R91.1 Solitary pulmonary nodule
CPT/HCPCS: 82088; 84244; 84439; 84443; 84480

== ENCOUNTER 2021-06-14 12:15 | Outpatient (CLI) | payer BC, SELFPAY ==
[2021-06-14 13:12] LABS: Urine Creatinine 37 mg/dL (28-217)
[2021-06-14 14:52] LABS: Total Volume Urine 2500 ml
[2021-06-20 10:02] LABS: Calculated Total (E+NE) 26 mcg/24 h (26-121)
[2021-06-22 20:37] LABS: Free Cortisol Urine 12.6 mcg/24 h (4.0-50.0); Total Urine 2500 mL; Urine Creatinine 0.97 g/24 h (0.50-2.15)
== END 2021-06-14 12:16 | disposition home or self-care (01) ==
LOC: LAB 12:20
PROVIDERS: PCP Registered Nurse; Visit Provider Internal Medicine
DX: E04.2 Nontoxic multinodular goiter (principal); I10 Essential (primary) hypertension; R91.1 Solitary pulmonary nodule
CPT/HCPCS: 82384; 82530; 82570

== ENCOUNTER → 2021-06-23 10:41 | Outpatient (BNVA) | payer BC, SELFPAY | PROVIDERS: PCP Registered Nurse; Visit Provider Anesthesiology Pain Medicine | DX: M47.816 Spondylosis without myelopathy or radiculopathy, lumbar region (principal) | CPT/HCPCS: 72110 ==

== ENCOUNTER 2021-07-01 09:45 | Outpatient (CLI) | payer BC, SELFPAY ==
--- NOTE | 2021-07-01 10:04 | MM_ITS ---
WS: [id number] BILATERAL 3D TOMOSYNTHESIS DIGITAL SCREENING MAMMOGRAPHY WITH CAD CLINICAL INFORMATION: SCREENING HISTORY: Screening mammogram. No current complaints. COMPARISON: January 20, 2020 TECHNIQUE: Bilateral CC and MLO views. FINDINGS: Scattered fibroglandular densities bilaterally. No suspicious focal mass, asymmetry, calcifications, or architectural distortion. No evidence of malignancy. MM/[place] [id number] IMPRESSION: BI-RADS: 1-Negative FOLLOW UP: 1 Year Follow-up Recommend return to annual screening mammography.
== END 2021-07-01 09:46 | disposition home or self-care (01) ==
LOC: RADSHAW 09:46
PROVIDERS: PCP Registered Nurse; Visit Provider Family Medicine
DX: Z12.31 Encounter for screening mammogram for malignant neoplasm of breast (principal)
CPT/HCPCS: 77063; 77067

== ENCOUNTER 2021-07-15 10:45 | Outpatient (CLI) | payer BC, SELFPAY ==
--- NOTE | 2021-07-15 11:00 | MR_ITS ---
WS: [id number] MRI LUMBAR SPINE NONCONTRAST TECHNIQUE: Sagittal T1, T2 and STIR imaging. Axial T1 and T2 imaging. CLINICAL INFORMATION: M48.062 - Spinal stenosis, lumbar region with neurogenic ... COMPARISON: MRI June 16, 2020 FINDINGS: Mild lumbar curve. No acute compression. No high-grade central canal stenosis. L1-L2: Mild disc bulging with slight effacement of ventral thecal sac. Mild facet arthropathy. Spinal canal and foramen are patent. L2-L3: Mild disc bulging with slight effacement of ventral thecal sac. Slight impingement RIGHT subar ticular recess and traversing RIGHT L3 nerve root. Mild facet arthropathy. Spinal canal and foramen a re patent. L3-L4: Tiny LEFT subarticular protrusion impinges the traversing LEFT L4 nerve root in the subarticul ar recess progressed compared to previous. Mild central canal stenosis. Mild LEFT greater than RIGHT foraminal narrowing. Mild facet arthropathy. L4-L5: Mild disc bulging with osteophytic ridging. Mild central canal stenosis. Impingement on the tr aversing RIGHT L5 nerve root. Foramen are patent. Moderate facet arthropathy. L5-S1: LEFT eccentric disc osteophyte ridging. Slight impingement traversing LEFT S1 nerve root. Spin al canal and foramen are patent. Moderate facet arthropathy. Small RIGHT renal cyst. MR/MR lumbar spine wo con* [id number] IMPRESSION: 1. Mild lumbar curve. No acute compression. No high-grade central canal stenos is. 2. LEFT subarticular disc osteophyte protrusion L3-L4 impinges the traversing LEFT L4 nerve root in the LEFT subarticular recess progressed compared to previ ous. Mild LEFT L3-L4 foraminal narrowing. 3. Mild central canal stenosis L3-L4 and L4-L5 unchanged compared to previous 4. Impingement on the RIGHT L4-L5 subarticular recess and traversing RIGHT L5 nerve root unchanged from previous. Mild RIGHT foraminal narrowing at this leve l. Small annular fissure. 5. Disc bulging eccentric to the LEFT L5-S1 impinges the traversing LEFT S1 ne rve root unchanged from previous. 6. Moderate facet arthropathy L3-L5.
== END 2021-07-15 10:46 | disposition home or self-care (01) ==
LOC: RAD 10:50
PROVIDERS: PCP Registered Nurse; Visit Provider Anesthesiology Pain Medicine
DX: M48.062 Spinal stenosis, lumbar region with neurogenic claudication (principal); M51.26 Other intervertebral disc displacement, lumbar region
CPT/HCPCS: 72148

== ENCOUNTER 2021-07-21 11:49 | Outpatient (CLI) | payer BC, SELFPAY ==
--- NOTE | 2021-07-21 12:00 | US_ITS ---
WS: [id number] INDICATION: Lymph nodes TECHNIQUE: Ultrasound neck FINDINGS: Ultrasound neck area of concern. Enlarged cervical lymph nodes bilaterally. Some demonstrat e cortical thickening and narrowing of the fatty cornelius which have a suspicious appearance. These are i ndeterminate but neoplasm not excluded. Largest lymph noted in the LEFT neck measuring 1.2 x 0.9 x 2. 5 cm. Recommend further evaluation with contrast-enhanced CT neck. US/US soft tissue/extremity [id number] IMPRESSION: Indeterminate bilateral enlarged cervical lymph nodes. Recommend fu rther evaluation with contrast-enhanced neck CT for better anatomic detail.
== END 2021-07-21 11:50 | disposition home or self-care (01) ==
PROVIDERS: PCP Registered Nurse; Visit Provider Internal Medicine
DX: E03.9 Hypothyroidism, unspecified (principal); R59.0 Localized enlarged lymph nodes; R91.1 Solitary pulmonary nodule; I10 Essential (primary) hypertension
CPT/HCPCS: 76882

== ENCOUNTER 2021-07-25 10:50 | Outpatient (CLI) | payer BC, SELFPAY ==
[2021-07-25 11:40] LABS: Basophils % 0.7 %; Eosinophils # 0.1 10^3/uL (0.0-0.8); Eosinophils % 2.4 %; Hematocrit 40.6 % (37.0-47.0); Hemoglobin 13.4 g/dL (11.5-15.3); Lymphocytes # 1.3 10^3/uL (0.8-4.8); Lymphocytes % 28.4 %; Mean Corpuscular Hemoglobin 30.5 pg (28.0-34.0); Mean Corpuscular Volume 92.3 fl (81-99); Mean Platelet Volume 10.2 fL (7.4-10.4); Monocytes # 0.5 10^3/uL (0.2-0.9); Monocytes % 9.9 %; Neutrophils # 2.65 10^3/uL (1.8-7.7); Neutrophils % 58.4 %; Nucleated Red Blood Cells % 0 %; Platelet Count 247 10^3/cmm (130-400); Red Cell Distribution Width 13.4 % (12.1-15.1); White Blood Count 4.5 10^3/uL (4.0-10.0)
[2021-07-25 12:00] LABS: Erythrocyte Sedimentation Rate 76 mm/hr (0-15)
[2021-07-25 12:29] LABS: Free T4 Free Thyroxine 1.35 ng/dL (0.82-1.77); Thyroid Stimulating Hormone 1.48 uIU/mL (0.27-4.20)
[2021-07-26 16:07] LABS: Lyme AB Screen <0.90 index
[2021-07-27 12:38] LABS: Anti-Nuclear Antibody Pattern Nuclear, Speckled; Anti-Nuclear Antibody Screen POSITIVE (NEGATIVE); Anti-Nuclear Antibody Titer > OR = 1:1280 titer
[2021-07-28 17:21] LABS: E. Chaffeensis AB IGG <1:64; E. Chaffeensis AB IGM <1:20
[2021-07-28 18:02] LABS: Functional C1 Estrase Inhibito >100 %
[2021-07-28 21:52] LABS: RMSF IGG NOT DETECTED; RMSF IGM NOT DETECTED
[2021-07-29 15:08] LABS: Francisella Tularensis DA <1:20 titer
== END 2021-07-25 10:51 | disposition home or self-care (01) ==
LOC: LAB 10:52
PROVIDERS: PCP Registered Nurse; Visit Provider Specialist
DX: R22.1 Localized swelling, mass and lump, neck (principal)
CPT/HCPCS: 84439; 84443; 85025; 85651; 86000; 86038; 86160; 86611; 86618; 86666; 86757

== ENCOUNTER 2021-08-07 09:58 | Emergency (ER) | payer BC, SELFPAY ==
[2021-08-07 10:15] VITALS: BP 180/106; PULSE 68; RESP 18; TEMP 36.4; O2SAT 98; BMI 31.8
--- NOTE | 2021-08-07 10:23 | W.ED.FEMALGU ---
HPI - Female Genitourinary General: Chief complaint: Urogenital-Female Stated complaint: burining when urinating Time Seen by Provider: 08/07/21 10:19 Source: patient Mode of arrival: ambulatory Limitations: no limitations History of Present Illness: 61-year-old female presents to the ER today for possible UTI. Patient reports she woke up this a.m. and had increased urinary urgency, frequency, burning with urination and lower abdominal pain. Patient reports this has been an issue for her since she was about age 12. She reports she gets these pretty frequently and they happen fast. Patient reports the only thing that gets rid of them is Cipro for about 2 weeks. Patient denies any fever or chills. Denies any nausea or vomiting. Patient denies any blood in her urine this AM. Patient reports her blood pressure is elevated however she has not taken her blood pressure medication this morning. Review of Systems General: Reports: 10 or more systems reviewed and unremarkable except in HPI and below PFSH ED PFSH: Medical History Chest pain Dental caries Hypertension Mitral valve regurgitation Myalgia Myalgia, other site Positive BJ (antinuclear antibody) Rheumatoid factor positive Sjogrens syndrome Surgical History History of surgery on wrist Hx of arthroscopic knee surgery Hx of carpal tunnel repair Hx of neck surgery Hx of total hysterectomy S/P carpal tunnel release (~2014) S/P cholecystectomy (~1981) S/P total knee replacement (~1994) Family History Mother CAD (coronary artery disease) Cancer Lung disease Stroke Father Myocardial infarction CAD (coronary artery disease) Son Anesthesia complication Family/Other CAD (coronary artery disease) Cancer Lung disease Grandfather Cancer Grandmother Diabetes Denies family history of Clotting disorder Dementia Chronic kidney disease (CKD) Suicide Bleeding disorder Social History Smoking and tobacco status: never smoked Second hand smoke exposure: Yes Alcohol intake: never Lives independently: Yes Household members: spouse Marital status details: SPOUSE RECENT REMISSION WITH CANCER History of recent travel: No Physical Exam Const: COMMON NORMALS: no acute distress, average body habitus, patient oriented x3 and no limitations Neck/C-Spine: COMMON NORMALS: full ROM Resp: COMMON NORMALS: normal respiratory effort EFFORT & INSPECTION: Yes able to speak in complete sentences Cardio: COMMON NORMALS: regular rate and regular rhythm RATE: regular rate RHYTHM: regular rhythm : COMMON NORMALS: Yes no CVA tenderness BLADDER/KIDNEY EXAM: Yes no CVA tenderness and Yes other (suprapubic tenderness) Back/Pelvis: COMMON NORMALS: no CVA tenderness Extremity: COMMON NORMALS: normal to inspection and full ROM Neuro: COMMON NORMALS: patient oriented x3 Psych: COMMON NORMALS: mental status grossly normal, Normal thought process present, cooperative and normal affect THOUGHT PROCESS: Normal thought process present Skin: COMMON NORMALS: no rashes or lesions noted GENERAL SKIN EXAM: no rashes or lesions noted Course ED course: 61-year-old female with a significant history of UTIs presents to the ER for possible UTI. Patient reports this began this a.m. with painful urination, increased urinary frequency, lower abdominal pain. She reports this is like her typical UTIs. Denies any nausea or vomiting, fever or chills. Will get UA and treat based on results. Vital Signs: Vital signs: Vital Signs Temperature 97.6 F 08/07/21 10:15 Pulse Rate 68 08/07/21 10:15 Respiratory Rate 18 08/07/21 10:15 Blood Pressure 180/106 08/07/21 10:15 Pulse Oximetry 98 08/07/21 10:15 [facility] - Female Medical Decision Making 61-year-old female presents to the ER today for probable UTI. Patient reports a significant history of UTIs. She woke up this a.m. with increased urination pain with urination and lower abdominal pain. Patient denies any fever or chills. Denies any nausea or vomiting. UA in the ER indicates blood and leukocytes. Likely a UTI. We will treat with Cipro as this is the only thing that seems to work for patient. We will do an increased course that she also reports a normal course does not work. Follow-up with PCP in 3 to 5 days. Return to the ER with new or worsening symptoms. Patient verbalized understanding and is in agreement with the treatment plan. Lab Data Laboratory Results Urine Color Yellow (Yellow) 08/07/21 10:22 Urine Appearance Hazy (CLEAR) A 08/07/21 10:22 Urine pH 7 (5-7) 08/07/21 10:22 Ur Specific [place] 1.010 (1.005-1.030) 08/07/21 10:22 Urine Protein Neg (Negative) 08/07/21 10:22 Urine Glucose (UA) Norm (Normal) 08/07/21 10:22 Urine Ketones 1+ (Negative) H 08/07/21 10:22 Urine Blood 2+ (Negative) H 08/07/21 10:22 Urine Nitrate Negative (Negative) 08/07/21 10:22 Urine Bilirubin Neg (Negative) 08/07/21 10:22 Urine Urobilinogen Norm mg/dL (Negative) 08/07/21 10:22 Ur Leukocyte Esterase 2+ (Negative) H 08/07/21 10: Urine RBC 15-25 /hpf (0-2) H 08/07/21 10:22 Urine WBC >100 /hpf (0-5) H 08/07/21 10:22 Ur Squamous Epith Cells 0-4 /hpf (0-5) H 08/07/21 10: Amorphous Sediment Not Reportable 08/07/21 10:22 Urine Bacteria 2+ /hpf (NONE) H 08/07/21 10:22 Critical Care Time Critical Care Time: Critical Care Time: No Discharge Plan Discharge Patient Disposition: Home Clinical Impression: UTI (urinary tract infection) Qualifiers: Urinary tract infection type: acute cystitis Condition: Stable Prescriptions: New Cipro 250 mg tablet 250 mg PO BID 14 Days Qty: 28 0RF No Action OTC thyroid care PO 0RF biotin PO 0RF Bioflavonoids, [place] Powder PO 0RF Alive Once Daily Women 50 Plus 800-100 mcg tablet PO 0RF Adult Probiotic 3 billion cell capsule 3,000 mmu cells PO DAILY 0RF magnesium aspartate HCl 61 mg (615 mg) tablet,delayed release (DR/EC) 61 mg PO DAILY 0RF cholecalciferol (vitamin D3) 50 mcg (2,000 unit) capsule 50 mcg PO DAILY 0RF zinc 50 mg tablet 50 mg PO DAILY 0RF vitamin E 200 unit capsule 200 unit PO DAILY 0RF omega-3 fatty acids [Super [place]-3] 1,000 mg capsule 1,000 mg PO DAILY 0RF methylprednisolone acetate [Depo-Medrol] 80 mg/mL suspension 80 mg intra-articular ONCE Qty: 1 0RF methylprednisolone acetate [Depo-Medrol] 40 mg/mL suspension 40 mg intra-articular ONCE Qty: 1 0RF bupivacaine (PF) 0.25 % (2.5 mg/mL) solution 1 ml intra-articular ONCE Qty: 1 0RF diltiazem HCl 60 mg tablet 120 mg PO TID 0RF alprazolam 0.25 mg tablet 0.25 mg PO .1/2 tab HS 0RF terazosin 5 mg capsule 5 mg PO DAILY Qty: 20 0RF Rx Instructions: at bedtime Discharge Orders: Discharge ED (Routine); Ordered 08/07/21 Ordered By: Sandy Castro Referrals: Ingris Bee FNP [Primary Care Provider] - Discharge Diet: Usual diet Discharge Activity: Resume usual activity Patient Instructions: Opioid Safety Activity Restrictions/Additional Instructions: Take Cipro as prescribed. Push fluids. Okay to take [id number] Azo Standard for the next 24 hours for symptoms. Follow-up with PCP in 3 to 5 days if no improvement. Return to the ER with new or worsening symptoms. Coding Level of Care Code ED Anode Worker for Harshad Fwmindi Exam Comprehensive
[2021-08-07 11:17] LABS: Glucose Urine UA Norm (Normal); Protein Urine Neg (Negative); Urine Appearance Hazy (CLEAR); Urine Color Yellow (Yellow); pH Urine 7 (5-7)
[2021-08-07 11:18] LABS: Add Urine Microscopic? YES; Bilirubin Urine Neg (Negative); Blood Urine 2+ (Negative); Ketones Urine 1+ (Negative); Leukocyte Esterase Urine 2+ (Negative); Nitrate Urine Negative (Negative); Urobilinogen Urine Norm (Negative)
[2021-08-07 11:21] LABS: RBC Urine 15-25 /hpf (0-2); WBC Urine >100 /hpf (0-5)
[2021-08-07 11:22] LABS: Add Urine Culture? Yes; Bacteria Urine 2+ /hpf; Squamous Epithelial Cell Urine 0-4 /hpf (0-5)
== END 2021-08-07 11:33 | disposition home or self-care (01) ==
PROVIDERS: Emergency Medicine; Emergency Provider Physician Assistant; PCP Registered Nurse
DX: N30.01 Acute cystitis with hematuria (principal)
CPT/HCPCS: 81001; 87077; 87086; 87186; 99282

== ENCOUNTER 2021-09-12 11:46 | Outpatient (CLI) | payer BC, SELFPAY ==
--- NOTE | 2021-09-12 12:05 | XR_ITS ---
WS: [id number] LEFT SHOULDER: 2 VIEW(S) TECHNIQUE: Internal and external rotation. HISTORY: M19.019 - Primary osteoarthritis, unspecified shoulder COMPARISON: None available. Mild narrowing of the glenohumeral joint and AC joint. No fracture. Advanced osteoarthritic changes at the first costochondral junction. XR/XR shoulder LT min 2V* [id number] IMPRESSION: Mild AC joint and glenohumeral joint arthritis.
== END 2021-09-12 11:47 | disposition home or self-care (01) ==
PROVIDERS: PCP Registered Nurse; Visit Provider Anesthesiology Pain Medicine
DX: M19.012 Primary osteoarthritis, left shoulder (principal)
CPT/HCPCS: 73030

== ENCOUNTER 2021-11-25 14:29 | Emergency (ER) | payer BC, SELFPAY ==
--- NOTE | 2021-11-25 14:31 | XR_ITS ---
WS: [id number] Right forearm, AP and lateral views, 11/25/2021 Clinical Data: R forearm pain Comparison: None. Findings: No fractures or dislocations are seen. The soft tissues are normal. The visualized right wrist and el bow show no obvious abnormalities. XR/XR forearm RT 2V [id number] Impression: Negative for right forearm fracture.
[2021-11-25 14:40] VITALS: BP 135/86; PULSE 73; RESP 16; TEMP 36.7; O2SAT 96; BMI 31.3
--- NOTE | 2021-11-25 14:59 | ED_ITS ---
HPI - Fall General: Chief Complaint: Fall Stated Complaint: right arm injury Time Seen by Provider: 11/25/21 14:59 Source: patient Mode of arrival: ambulatory Limitations: no limitations History of Present Illness: 61-year-old female presents to the ER today after a fall just prior to arrival. Patient reports she tripped over the curb at the [employer]. Patient reports she landed on her right forearm and hit her and hit her in the forehead. Patient reports an abrasion to the forehead and also to the right knee and right forearm. Patient reports she is able to move both the arm and knee with only mild pain. Patient reports bleeding is controlled. Patient denies any headache or dizziness at this time. She is not taking thing for pain at this time. Patient denies any loss of consciousness with the fall. This was a witnessed fall. Review of Systems General: Reports: 10 or more systems reviewed and unremarkable except in HPI and below PFSH ED PFSH: Medical History Chest pain Dental caries Hypertension Mitral valve regurgitation Myalgia Myalgia, other site Positive BJ (antinuclear antibody) Rheumatoid factor positive Sjogrens syndrome Surgical History History of surgery on wrist Hx of arthroscopic knee surgery Hx of carpal tunnel repair Hx of neck surgery Hx of total hysterectomy S/P carpal tunnel release (~2014) S/P cholecystectomy (~1981) S/P total knee replacement (~1994) Family History Mother CAD (coronary artery disease) Cancer Lung disease Stroke Father Myocardial infarction CAD (coronary artery disease) Son Anesthesia complication Family/Other CAD (coronary artery disease) Cancer Lung disease Grandfather Cancer Grandmother Diabetes Denies family history of Clotting disorder Dementia Chronic kidney disease (CKD) Suicide Bleeding disorder Social History Smoking and tobacco status: never smoked Second hand smoke exposure: Yes Alcohol intake: never Lives independently: Yes Household members: spouse History of recent travel: No Female Reproductive History: Date of last menstrual period: 07/17/12 Physical Exam Const: COMMON NORMALS: no acute distress, average body habitus, patient oriented x3, no limitations, healthy appearing, alert and well nourished HENMT: HEAD & SCALP: abrasion (R forehead) and contusion (R forehead) Eye: COMMON NORMALS: Equal, round and reactive pupils present and conjunctivae normal CONJUNCTIVA: Yes conjunctivae normal PUPIL: Yes Equal, round and reactive pupils present Neck/C-Spine: COMMON NORMALS: full ROM and no lymphadenopathy Resp: COMMON NORMALS: normal respiratory effort, No retractions and clear to auscultation bilaterally AUSCULTATION: clear to auscultation bilaterally Cardio: COMMON NORMALS: regular rate, regular rhythm and No murmurs present (Cardio) RATE: regular rate RHYTHM: regular rhythm Back/Pelvis: COMMON NORMALS: no thoracic nor lumbar tenderness and thoraco- lumbar ROM normal Extremity: NARRATIVE EXTREMITY EXAM: Patient has a contusion noted to the right forearm with an abrasion over the hematoma. Patient has some tenderness over that area also. Normal range of motion noted. Neuro: COMMON NORMALS: patient oriented x3 SENSORIUM/ORIENTATION: Yes alert Psych: COMMON NORMALS: mental status grossly normal, Normal thought process present, cooperative and normal affect THOUGHT PROCESS: Normal thought process present Skin: NARRATIVE SKIN EXAM: Patient has an abrasion with bleeding controlled to the right forearm and also to the right side of the forehead. Patient also has a small abrasion to the right knee without bleeding. Course ED course: 61-year-old female presents to the ER after a fall just prior to arrival. Patient reports she tripped over a curb at the [employer] and landed on her right forearm and hit her head. Patient reports she has an abrasion to the right side of her forehead and also to the right arm and right knee. Patient reports most pain is in the right forearm. She denies any loss of consciousness. Patient denies any headache or dizziness at this time. We will get an x-ray of the forearm and apply nonstick dressings. Vital Signs: Vital signs: Vital Signs Temperature 98.0 F 11/25/21 14:40 Pulse Rate 73 11/25/21 14:40 Respiratory Rate 16 11/25/21 14:40 Blood Pressure 135/86 11/25/21 14:40 Pulse Oximetry 96 11/25/21 14:40 Oxygen Delivery Me thod 11/25/21 14:40 MDM - Fall Medical Decision Making 61-year-old female presents to the ER after a fall just prior to arrival. Patient reports she tripped over a curb at the [employer] and landed on her right forearm and hit her head. Patient reports she has an abrasion to the right side of her forehead and also to the right arm and right knee. Patient reports most pain is in the right forearm. She denies any loss of consciousness. Patient denies any headache or dizziness at this time. We will get an x-ray of the forearm and apply nonstick dressings. Was negative. Patient has a contusion of the forearm along with hematoma to the forearm and right side of forehead. Patient also has an abrasion to the right knee. Discussed wound care for these at home. A nonstick dressing was applied to the right forearm as it is the largest wound. Recommended patient continue to keep these clean. Apply ice to reduce any swelling. Discussed the patient likely will be more sore tomorrow and the next day than she is today. Patient should follow-up with her PCP in 4 to 7 days. Return to the ER with any new or worsening symptoms. Patient verbalized understanding and was in agreement with the treatment plan. Lab Data Radiology Impressions Forearm X-Ray 11/25/21 14:31 Impression: Negative for right forearm fracture. Critical Care Time Critical Care Time: Critical Care Time: No Discharge Plan Discharge Patient Disposition: Home Clinical Impression: Contusion of forearm, right, Abrasion of forearm, right, Abrasion head, Abrasion of knee, right Condition: Stable Prescriptions: No Action OTC thyroid care PO biotin PO Bioflavonoids, [facility] Powder PO Alive Once Daily Women 50 Plus 800-100 mcg tablet PO Adult Probiotic 3 billion cell capsule 3,000 mmu cells PO DAILY magnesium aspartate HCl 61 mg (615 mg) tablet,delayed release (DR/EC) 61 mg PO DAILY cholecalciferol (vitamin D3) 50 mcg (2,000 unit) capsule 50 mcg PO DAILY zinc 50 mg tablet 50 mg PO DAILY vitamin E 200 unit capsule 200 unit PO DAILY omega-3 fatty acids [Super [place]-3] 1,000 mg capsule 1,000 mg PO DAILY methylprednisolone acetate [Depo-Medrol] 80 mg/mL suspension 80 mg intra-articular ONCE Qty: 1 0RF methylprednisolone acetate [Depo-Medrol] 40 mg/mL suspension 40 mg intra-articular ONCE Qty: 1 0RF bupivacaine (PF) 0.25 % (2.5 mg/mL) solution 1 ml intra-articular ONCE Qty: 1 0RF diltiazem HCl 60 mg tablet 120 mg PO TID alprazolam 0.25 mg tablet 0.25 mg PO .1/2 tab HS ketoconazole 2 % cream 1 applic topical BID Qty: 60 3RF Rx Instructions: Apply to affected areas and skin folds x3 weeks. May use as needed for flares. bupivacaine (PF) 0.25 % (2.5 mg/mL) solution 2 ml Infiltration ONCE Qty: 1 0RF dexamethasone sodium phos (PF) 10 mg/mL solution 8 mg Infiltration ONCE Qty: 0.8 0RF terazosin 5 mg capsule 5 mg PO DAILY Qty: 20 0RF Rx Instructions: at bedtime Discharge Orders: Discharge ED (Routine); Ordered 11/25/21 Ordered By: Sandy Castro Referrals: Ingris Bee FNP [Primary Care Provider] - Discharge Diet: Usual diet Discharge Activity: Increase activity as tolerated Patient Instructions: Opioid Safety Activity Restrictions/Additional Instructions: Apply triple antibiotic ointment to wounds. Apply ice to reduce swelling. [id number] medication recommended for symptomatic relief. Follow-up with PCP in 7 to 10 days if no improvement. Return to the ER with new or worsening symptoms. Coding Level of Care Code ED [employer] System Admin for Harshad Roper
== END 2021-11-25 15:30 | disposition home or self-care (01) ==
PROVIDERS: Emergency Provider Physician Assistant; PCP Registered Nurse
DX: S50.11XA Contusion of right forearm, initial encounter (principal); S50.811A Abrasion of right forearm, initial encounter; S00.91XA Abrasion of unspecified part of head, initial encounter; S80.211A Abrasion, right knee, initial encounter; Z77.22 Contact with and (suspected) exposure to environmental tobacco smoke (acute) (chronic); I10 Essential (primary) hypertension; W18.09XA Striking against other object with subsequent fall, initial encounter
CPT/HCPCS: 73090; 99283

== ENCOUNTER 2021-12-09 11:58 | Emergency (ER) | payer BC, SELFPAY ==
[2021-12-09 12:02] VITALS: BP 166/100; PULSE 69; RESP 16; TEMP 36.7; O2SAT 98; BMI 33.5
--- NOTE | 2021-12-09 12:58 | ED_ITS ---
HPI - Headache General: Chief Complaint: Headache Stated Complaint: head pain, n/v Time Seen by Provider: 12/09/21 12:45 Source: patient Mode of arrival: ambulatory History of Present Illness: 61-year-old female comes in complaining of a headache. Approximately 2 weeks ago she hit her head. She was evaluated she had no focal neurologic deficits but she still is complaining of a headache she comes in also complaining of some neck pain she not had any fever sweats or chills she seemed to be getting better for a while and then had symptoms again. She states she has vomited once or twice. Otherwise neurologically she has been completely intact. No recurrent injury. She is not on any anticoagulants. She is concerned she may have a neck fracture from where the fusion was previously done. MD elicited complaint: headache Onset (ago): week(s) (2) Onset description: gradually Location: frontal Severity: moderate Quality & Timing: throbbing Exacerbating factors: none Relieving factors: nothing Associated symptoms: Reports neck stiffness; Deny chest pain, confusion, cough, diaphoresis, eye pain, eye redness, fever(s), lightheadedness, loss of vision, malaise, nausea, numbness, paresthesias, photophobia, pre-syncope, rash, seizures, short of breath, sound sensitivity, syncope, vomiting or weakness Treatments prior to arrival: none Review of Systems Const: Denies: fever(s), chills, malaise or diaphoresis ENMT: Denies: throat pain, ear or mastoid pain, nasal discharge or nasal congestion Card: Denies: chest pain, palpitations, irregular heart rhythm, lightheadedness, syncope or pre-syncope Resp: Denies: dyspnea, productive cough or non-productive cough GI: Denies: abdominal pain, nausea, vomiting, hematemesis or coffee ground emesis : Denies: flank pain, difficulty voiding, dysuria, urinary frequency or urinary urgency Musc: Reports: neck pain Skin/Breast: Denies: rash Neuro: Denies: confusion PFSH ED PFSH: Medical History Chest pain Dental caries Hypertension Mitral valve regurgitation Myalgia Myalgia, other site Positive BJ (antinuclear antibody) Rheumatoid factor positive Sjogrens syndrome Surgical History History of surgery on wrist Hx of arthroscopic knee surgery Hx of carpal tunnel repair Hx of neck surgery Hx of total hysterectomy S/P carpal tunnel release (~2014) S/P cholecystectomy (~1981) S/P total knee replacement (~1994) Family History Mother CAD (coronary artery disease) Cancer Lung disease Stroke Father Myocardial infarction CAD (coronary artery disease) Son Anesthesia complication Family/Other CAD (coronary artery disease) Cancer Lung disease Grandfather Cancer Grandmother Diabetes Denies family history of Clotting disorder Dementia Chronic kidney disease (CKD) Suicide Bleeding disorder Social History Smoking and tobacco status: never smoked Second hand smoke exposure: Yes Alcohol intake: never Lives independently: Yes Household members: spouse History of recent travel: No Female Reproductive History: Date of last menstrual period: 07/17/12 Physical Exam Const: COMMON NORMALS: no acute distress GENERAL APPEARANCE: cooperative and comfortable ORIENTATION/CONSCIOUSNESS: Yes awake, Yes oriented to person, Yes oriented to place and Yes oriented to time HENMT: COMMON NORMALS: normocephalic, atraumatic, hearing grossly normal bilaterally, external ears normal, EAC's normal, TM's normal bilaterally, Normal nasal mucous membranes and turbinates present, moist oral mucous membranes and oropharynx normal HEAD & SCALP: normocephalic and atraumatic NOSE: Normal nasal mucous membranes and turbinates present EXTERNAL EAR: Yes external ears normal EXTERNAL AUDITORY CANAL: EAC's normal TYMPANIC MEMBRANE: TM's normal bilaterally Eye: COMMON NORMALS: Equal, round and reactive pupils present, EOMs intact b ilaterally, conjunctivae normal and no scleral icterus CONJUNCTIVA: Yes conjunctivae normal PUPIL: Yes Equal, round and reactive pupils present DIRECT OPHTHALMOSCOPY: No photophobia Resp: COMMON NORMALS: normal respiratory effort, No retractions, No use of accessory muscles and clear to auscultation bilaterally AUSCULTATION: clear to auscultation bilaterally Cardio: COMMON NORMALS: regular rate, regular rhythm and No murmurs present (Cardio) RATE: regular rate RHYTHM: regular rhythm GI: COMMON NORMALS: Soft to palpation and No hepatosplenomegaly present AUSCULTATION: Yes normoactive bowel sounds PALPATION: Yes Soft to palpation, No Tenderness to palpation present (GI), No Guarding due to palpation present (GI) and Yes No hepatosplenomegaly present Extremity: COMMON NORMALS: normal to inspection, capillary refill normal, no clubbing, cyanosis or edema, no calf tenderness and no pedal edema Neuro: SENSORIUM/ORIENTATION: Yes oriented to person, Yes oriented to place and Yes oriented to time OTHER: Cranial nerves II to XII intact no focal neurologic deficits noted. Skin: COMMON NORMALS: no rashes or lesions noted GENERAL SKIN EXAM: no rashes or lesions noted Course Vital Signs: Vital signs: Vital Signs Temperature 98.0 F 12/09/21 12:02 Pulse Rate 70 12/09/21 15:06 Respiratory Rate 16 12/09/21 15:06 Blood Pressure 165/90 12/09/21 15:06 Pulse Oximetry 98 12/09/21 15:06 Oxygen Delivery Me thod 12/09/21 15:06 MDM - Headache Medical Decision Making Plain films questional area on the dens. CT of the neck done to confirm and was negative. Neurologically completely intact no focal logic deficits noted. Plan discharge home follow-up with primary care as needed. Medical Records I reviewed the patient's medical records. Lab Data I reviewed the patient's lab results. Radiology Impressions Cervical Spine X-Ray 12/09/21 12:59 Impression: 1. Questionable fracture of the dens of the odontoid. 2. Intact anterior cervical disc fusion C5-C6. 3. 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 4. Dr. Mcgill of the emergency room was notified at [address] 12/09/21 13:38 IMPRESSION: No evidence of acute fracture or dislocation. Discharge Plan Discharge Patient Disposition: Home Clinical Impression: Fall, Neck pain, Concussion Condition: Stable Prescriptions: No Action OTC thyroid care 1 tab PO DAILY magnesium aspartate HCl 61 mg (615 mg) tablet,delayed release (DR/EC) 61 mg PO DAILY cholecalciferol (vitamin D3) 50 mcg (2,000 unit) capsule 50 mcg PO DAILY zinc 50 mg tablet 50 mg PO DAILY vitamin E 200 unit capsule 200 unit PO DAILY omega-3 fatty acids [Super [place]-3] 1,000 mg capsule 1,000 mg PO DAILY diltiazem HCl 60 mg tablet 120 mg PO TID ketoconazole 2 % cream 1 applic topical BID Qty: 60 3RF Rx Instructions: Apply to affected areas and skin folds x3 weeks. May use as needed for flares. biotin 5 mg Tablet 5 mg PO DAILY Bioflavonoids, [place] Powder 1 ea PO DAILY Probiotic 3 billion cell Capsule 3,000 mmu cells PO DAILY Rx Instructions: administer with a meal Alive Premium Women's 50 Plus 80 mcg-166.7 mcg-66.7 mg Tablet,Chewable 1 tab PO DAILY valacyclovir 1 gram tablet 1 mg PO BID pantoprazole 40 mg tablet,delayed release (DR/EC) 40 mg PO BID Discharge Orders: Discharge ED (Routine); Ordered 12/09/21 Ordered By: Eric Spencer Referrals: Ingris Bee FNP [Primary Care Provider] - Discharge Diet: Usual diet Discharge Activity: Increase activity as tolerated Patient Instructions: Concussion/Head Injury - Adult, Concussion (ED), Opioid Safety, Pain Management Activity Restrictions/Additional Instructions: Follow-up with your primary care doctor. Avoid using cell [employer] computers and watching television for the next several days. You can advance activity as tolerated. Coding Level of Care Code ED Supervisor [employer] for Harshad Roper
--- NOTE | 2021-12-09 12:59 | XR_ITS ---
WS: [id number] Cervical spine, 3 views, 12/09/2021 Clinical Data: fall/neck pain Comparison: Cervical spine, 08/17/2020. Cervical spine, 08/11/2020 Findings: On the lateral image there is a line across the tip of the odontoid. This line could repres ent a nondisplaced fracture of the dens. The anterior cervical disc fusion at C5-C6 is stable. There is disc narrowing at C4-C5. There is osteoarthritic change at C4-C5 and C6-C7. No prevertebral soft t issue swelling. The soft tissues of the neck and the lung apices are normal. XR/XR cervical spine 3V* [id number] Impression: 1. Questionable fracture of the dens of the odontoid. 2. Intact anterior cervical disc fusion C5-C6. 3. 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 4. Dr. Mcgill of the emergency room was notified at 1440 hours.
--- NOTE | 2021-12-09 13:38 | CT_ITS ---
WS: [id number] CT CERVICAL TRAUMA TECHNIQUE: Noncontrast CT of the cervical spine with coronal and sagittal reformatted images. CLINICAL INFORMATION: neck pain COMPARISON: MRI September 28, 2020 and radiograph December 09, 2021 DLP: 235.[address] scans at [facility] use at least one of these dose optimization techniques: automated e xposure control; mA and/or kV adjustment per patient size (includes targeted exams where dose is matc hed to clinical indication); or iterative reconstruction. FINDINGS: Mild cervical curve. Prior postoperative changes anterior cervical fusion with interbody fu kat C5-C6 appears stable. Evidence of bony bridging beyond the confines of the graft. No evidence of screw loosening. Hardware appears intact. Dens is normal in appearance. No acute dens fractures. No acute cervical spine fractures. Moderate spondylitic changes. Normal posterior nasopharynx. Normal parapharyngeal fat. Lung apices are well aerated. Mastoids air cells are well aerated. CT/CT cervical spin wo con* [id number] IMPRESSION: No evidence of acute fracture or dislocation.
[2021-12-09] MEDS: promethazine 25 mg/mL SDV 1 mL IM (13:49)
[2021-12-09] MEDS: ketorolac 30 mg/mL INJ 60 MG IM (13:50)
[2021-12-09 15:06] VITALS: BP 165/90; PULSE 70; RESP 16; O2SAT 98
== END 2021-12-09 15:08 | disposition home or self-care (01) ==
PROVIDERS: Emergency Provider Family Medicine; PCP Registered Nurse
DX: S06.0X9A Concussion with loss of consciousness of unspecified duration, initial encounter (principal); I10 Essential (primary) hypertension; Z98.1 Arthrodesis status; W19.XXXA Unspecified fall, initial encounter
CPT/HCPCS: 72040; 72125; 96372; 99284; J1885; J2550

== ENCOUNTER 2021-12-12 10:11 | Outpatient (CLI) | payer BC, SELFPAY ==
[2021-12-12 11:01] LABS: INR 0.93 (0.8-1.2)
[2021-12-12 11:12] LABS: Alanine Aminotransferase 120 U/L (0-33); Albumin Level 4.3 g/dL (3.5-5.2); Alkaline Phosphatase 146 U/L (35-105); Aspartate Amino Transferase 101 U/L (0-32); Globulin 4.3 g/dL (1.3-4.6); Total Bilirubin 0.2 mg/dL (0.15-1.2); Total Protein 8.6 g/dL (6.6-8.7)
== END 2021-12-12 10:12 | disposition home or self-care (01) ==
PROVIDERS: PCP Registered Nurse; Referring Provider Internal Medicine; Visit Provider Nurse Practitioner
DX: E04.2 Nontoxic multinodular goiter (principal); R79.89 Other specified abnormal findings of blood chemistry
CPT/HCPCS: 36415; 80076; 84439; 84443; 85610

== ENCOUNTER 2022-01-06 06:59 | Outpatient (CLI) | payer BC, SELFPAY ==
--- NOTE | 2022-01-06 07:00 | CT_ITS ---
WS: [id number] CT NECK WITH CONTRAST HISTORY: Lymphadenopathy TECHNIQUE: Contiguous 5 mm axial images are performed through the neck with intravenous contrast. Sag ittal and coronal reformats are also submitted. All CT scans at [facility] use at least one o f these dose optimization techniques: automated exposure control; mA and/or kV adjustment per patient size (includes targeted exams where dose is matched to clinical indication); or iterative reconstruc tion. CONTRAST: CONTRAST: Omnipaque 350; 95 mL IV. DLP: 269.21 mGy.cm COMPARISON: Cervical spine 12/09/2021, ultrasound 07/21/2021 Nasopharynx, oropharynx, hypopharynx and larynx are unremarkable. No soft tissue masses or abnormal e nhancement. Torus tubarius and fossa of Rosenmuller and parapharyngeal fat are normal. Very small bilateral cervical chain lymph nodes are identified. The largest lymph nodes are at level 2A bilaterally measuring up to 8 mm. Normal ovoid shape and normal fatty cornelius remains. Parotid glands are mildly enlarged. There are multiple tiny low-attenuation areas throughout each par otid gland. These findings are most consistent with tiny cysts. Tiny calcifications would be difficul t to exclude as there is contrast present. This pattern is suggestive of Sjogren's syndrome. No mass. The thyroid gland is negative for mass and extends slightly substernal. Anterior cervical fusion at C5-6. Fusion across the disc space. Visualized portions of the skull base demonstrate no abnormalities. Orbits and globes are within norm al limits. No soft tissue masses. Visualized paranasal sinuses and mastoid air cells are normal. Lung apices are clear. CT/CT neck w con* [id number] IMPRESSION: 1. No cervical lymphadenopathy. Normal size and appearance of the cervical neelam in lymph nodes. 2. Abnormal parotid glands. Most typical appearance for Sjogren's syndrome.
[2022-01-06] MEDS: iohexol 350 mg/mL 100 mL Btl IV (07:07)
== END 2022-01-06 07:00 | disposition home or self-care (01) ==
LOC: RAD 06:59
PROVIDERS: PCP Registered Nurse; Visit Provider Internal Medicine
DX: R59.1 Generalized enlarged lymph nodes (principal)
CPT/HCPCS: 70491

== ENCOUNTER 2022-04-17 06:00 | Outpatient (CLI) | payer BC, SELFPAY | END 2022-04-17 23:00 | disposition home or self-care (01) | LOC: RAD 04-19 13:19 | PROVIDERS: PCP Registered Nurse; Visit Provider Internal Medicine | DX: M54.50 Low back pain, unspecified (principal) | CPT/HCPCS: 72100 ==

== ENCOUNTER → 2022-05-18 11:48 | Outpatient (BNVA) | payer BC, SELFPAY | PROVIDERS: PCP Registered Nurse; Visit Provider Anesthesiology Pain Medicine | DX: M25.551 Pain in right hip (principal); M54.9 Dorsalgia, unspecified; G89.29 Other chronic pain; M25.519 Pain in unspecified shoulder | CPT/HCPCS: 73502 ==

== ENCOUNTER 2022-06-01 09:58 | Outpatient (CLI) | payer BC, SELFPAY ==
[2022-06-01 11:00] LABS: Free T4 Free Thyroxine 1.21 ng/dL (0.82-1.77); Thyroid Stimulating Hormone 2.88 uIU/mL (0.27-4.20)
== END 2022-06-01 09:59 | disposition home or self-care (01) ==
PROVIDERS: PCP Registered Nurse; Visit Provider Internal Medicine
DX: E03.8 Other specified hypothyroidism (principal); E04.1 Nontoxic single thyroid nodule
CPT/HCPCS: 36415; 84439; 84443

== ENCOUNTER 2022-06-21 14:12 | Outpatient (CLI) | payer BC, SELFPAY ==
--- NOTE | 2022-06-21 14:26 | US_ITS ---
WS: [id number] ULTRASOUND THYROID TECHNIQUE: Ultrasound of the thyroid. CLINICAL INFORMATION: thyroid nodule COMPARISON: May 10, 2021 FINDINGS: Thyroid: Right and left thyroid lobes are normal in size and echotexture. Previously described 6-7 mm nodule in the lateral mid RIGHT thyroid not as well visualized today but appears stable. No other no dules. Right thyroid lobe: 4.8 cm x 1.8 cm x 1.6 cm Left thyroid lobe: 4.5 cm x 2.1 cm x 1.3 cm. Isthmus: 0.5 mm. Cervical lymphadenopathy: None. US/US thyroid [id number] IMPRESSION: 1. Previously described 6-7 mm nodule in the lateral mid RIGHT thyroid not as well visualized today but appears stable 2. No other suspicious findings.
== END 2022-06-21 14:13 | disposition home or self-care (01) ==
LOC: RAD 14:14
PROVIDERS: PCP Registered Nurse; Visit Provider Internal Medicine
DX: M21.612 Bunion of left foot (principal); M21.611 Bunion of right foot; E04.1 Nontoxic single thyroid nodule
CPT/HCPCS: 73630; 76536

== ENCOUNTER 2022-08-03 06:43 | Outpatient (CLI) | payer BC, SELFPAY ==
[2022-08-03 08:15] LABS: Free T4 Free Thyroxine 1.47 ng/dL (0.82-1.77); Thyroid Stimulating Hormone 2.69 uIU/mL (0.27-4.20)
[2022-08-05 00:56] LABS: T3 Total 148 ng/dL (76-181)
== END 2022-08-03 06:44 | disposition home or self-care (01) ==
PROVIDERS: PCP Registered Nurse; Visit Provider Internal Medicine
DX: E03.8 Other specified hypothyroidism (principal); E04.1 Nontoxic single thyroid nodule; E04.2 Nontoxic multinodular goiter; I10 Essential (primary) hypertension; Z80.9 Family history of malignant neoplasm, unspecified
CPT/HCPCS: 36415; 84439; 84443; 84480

== ENCOUNTER → 2022-09-12 11:12 | Outpatient (BNVA) | payer BC, SELFPAY | PROVIDERS: PCP Registered Nurse; Visit Provider Anesthesiology Pain Medicine | DX: M47.894 Other spondylosis, thoracic region (principal) | CPT/HCPCS: 72072 ==

== ENCOUNTER 2022-10-27 02:23 | Emergency (ER) | payer BC, SELFPAY ==
--- NOTE | 2022-10-27 02:43 | ED_ITS ---
HPI - Neck Pain/Injury General: Chief Complaint: Neck Pain/Injury Stated Complaint: NECK PAIN Time Seen by Provider: 10/27/22 02:30 Source: patient and EMS Mode of arrival: EMS Limitations: no limitations History of Present Illness: 62-year-old female states that she has had chronic neck pain for years states she had a neck fracture back in 94 states she has been helping a friend over the last 2 days sewing a quilt where they use a large wooden structure and states she has been having repetitive movements [id number] her arms states she has had increasing left-sided neck pain states that this morning after laying down her pain is worsened its along the left side of her neck is worse with movement worse with palpation she did take a hydrocodone at home denies any midline pain denies any weakness Associated symptoms: Denies headache(s) or nausea Review of Systems Const: Denies: fever(s), chills, body aches or change in appetite ENMT: Denies: throat pain or dental pain Card: Denies: chest pain Resp: Denies: dyspnea GI: Denies: abdominal pain, nausea, vomiting or diarrhea Musc: Reports: neck pain; Denies: back pain Skin/Breast: Denies: rash Neuro: Denies: headache(s) PFSH ED PFSH: Medical History Chest pain Dental caries Hypertension Mitral valve regurgitation Myalgia Myalgia, other site Positive BJ (antinuclear antibody) Rheumatoid factor positive Sjogrens syndrome Surgical History History of surgery on wrist Hx of arthroscopic knee surgery Hx of carpal tunnel repair Hx of neck surgery Hx of total hysterectomy S/P carpal tunnel release (~2014) S/P cholecystectomy (~1981) S/P total knee replacement (~1994) Family History Mother CAD (coronary artery disease) Cancer Lung disease Stroke Father Myocardial infarction CAD (coronary artery disease) Son Anesthesia complication Family/Other CAD (coronary artery disease) Cancer Lung disease Grandfather Cancer Grandmother Diabetes Denies family history of Clotting disorder Dementia Chronic kidney disease (CKD) Suicide Bleeding disorder Social History Smoking and tobacco status: never smoked Second hand smoke exposure: Yes Alcohol intake: never Substance/Drug Use: never Lives independently: Yes Household members: spouse Physical Exam Const: COMMON NORMALS: no acute distress and patient oriented x3 HENMT: COMMON NORMALS: normocephalic and atraumatic HEAD & SCALP: normocephalic and atraumatic Eye: COMMON NORMALS: conjunctivae normal CONJUNCTIVA: Yes conjunctivae normal Neck/C-Spine: OTHER: Tenderness along left trapezius muscle pain with looking to the left no midline tenderness Chest: COMMONS NORMALS: normal inspection of the chest Resp: COMMON NORMALS: normal respiratory effort Cardio: COMMON NORMALS: regular rate RATE: regular rate GI: INSPECTION: Yes normal to inspection Extremity: COMMON NORMALS: normal to inspection Neuro: COMMON NORMALS: patient oriented x3 Psych: COMMON NORMALS: mental status grossly normal Skin: COMMON NORMALS: no rashes or lesions noted GENERAL SKIN EXAM: no rashes or lesions noted Course Vital Signs: Vital signs: Vital Signs Temperature 98.4 F 10/27/22 02:52 Pulse Rate 63 10/27/22 03:38 Respiratory Rate 18 10/27/22 03:38 Blood Pressure 124/75 10/27/22 03:38 Pulse Oximetry 92 10/27/22 03:38 Oxygen Delivery Me thod Room Air 10/27/22 02:52 MDM - Neck Pain/Injury Medical Decision Making Patient presents with neck pains likely muscle skeletal in nature she is point tender over trapezius no midline tenderness no injuries patient given morphine here she is to take her pain meds at home we will prescribe her Robaxin she is to follow-up with PCP and return if worsening. Medical Records I reviewed the patient's medical records. Discharge Plan Discharge Patient Disposition: Home Clinical Impression: Cervical muscle strain Condition: Stable Prescriptions: New methocarbamol 750 mg tablet 750 mg PO Q6H PRN (Reason: spasms) Qty: 20 0RF No Action OTC thyroid care 1 tab PO DAILY magnesium aspartate HCl 61 mg (615 mg) tablet,delayed release (DR/EC) 61 mg PO DAILY cholecalciferol (vitamin D3) 50 mcg (2,000 unit) capsule 50 mcg PO DAILY zinc 50 mg tablet 50 mg PO DAILY vitamin E 200 unit capsule 200 unit PO DAILY omega-3 fatty acids [Super [place]-3] 1,000 mg capsule 1,000 mg PO DAILY diltiazem HCl 60 mg tablet 120 mg PO TID ketoconazole 2 % cream 1 applic topical BID Qty: 60 3RF Rx Instructions: Apply to affected areas and skin folds x3 weeks. May use as needed for flares. bupivacaine (PF) 0.25 % (2.5 mg/mL) solution 2 ml Infiltration ONCE Qty: 1 0RF hydrocodone-acetaminophen 5-325 mg tablet 1 tab PO tizanidine 4 mg capsule 4 mg PO BID PRN tizanidine 4 mg tablet 4 mg PO BID PRN (Reason: muscle spasticity) Qty: 60 0RF biotin 5 mg Tablet 5 mg PO DAILY Bioflavonoids, [place] Powder 1 ea PO DAILY Probiotic 3 billion cell Capsule 3,000 mmu cells PO DAILY Rx Instructions: administer with a meal Alive Premium Women's 50 Plus 80 mcg-166.7 mcg-66.7 mg Tablet,Chewable 1 tab PO DAILY valacyclovir 1 gram tablet 1 mg PO BID pantoprazole 40 mg tablet,delayed release (DR/EC) 40 mg PO BID Discharge Orders: Discharge ED (Routine); Ordered 10/27/22 Ordered By: Bernadette Castelan Referrals: Ingris Bee FNP [Primary Care Provider] - 1-3 days Discharge Diet: Advance as tolerated Discharge Activity: Resume usual activity Patient Instructions: Cervical Strain (ED) Coding Level of Care Code ED Accountant Bookkeeper for Harshad Roper
[2022-10-27 02:47] VITALS: RESP 18; O2SAT 96
[2022-10-27] MEDS: morphine 4 mg/mL SDV 1 mL 6 MG IM (02:47)
[2022-10-27 02:52] VITALS: BP 149/87; PULSE 80; RESP 16; TEMP 36.9; O2SAT 96; BMI 32.0
[2022-10-27 03:38] VITALS: BP 124/75; PULSE 63; RESP 18; O2SAT 92
== END 2022-10-27 03:46 | disposition home or self-care (01) ==
PROVIDERS: Emergency Provider Emergency Medicine; PCP Registered Nurse
DX: S16.1XXA Strain of muscle, fascia and tendon at neck level, initial encounter (principal); X50.9XXA Other and unspecified overexertion or strenuous movements or postures, initial encounter; I10 Essential (primary) hypertension; Z77.22 Contact with and (suspected) exposure to environmental tobacco smoke (acute) (chronic)
CPT/HCPCS: 96372; 99283; J2270

== ENCOUNTER → 2022-11-02 09:34 | Outpatient (BNVA) | payer BC, SELFPAY | PROVIDERS: PCP Registered Nurse; Visit Provider Anesthesiology Pain Medicine | DX: M54.2 Cervicalgia (principal) | CPT/HCPCS: 72040 ==

== ENCOUNTER 2022-12-06 09:30 | Outpatient (CLI) | payer BC, SELFPAY ==
--- NOTE | 2022-12-06 10:30 | MR_ITS ---
WS: [id number] MRI CERVICAL SPINE NONCONTRAST HISTORY: M54.2 - Cervicalgia COMPARISON: 09/28/2020 Technique: Multiplanar, multisequence noncontrast imaging of the cervical spine. Prior anterior cervical fusion at C5-6 with interbody spacer. Moderate increase in the cervical lordo sis. Very slight increased T2 signal in the cervical cord at the C6 level. No cord atrophy or enlargement. Disc bases are diffusely narrowed throughout the cervical spine with osteophytic ridging. C2-C3: Normal. C3-C4: Mild osteophytic ridging and facet arthritis. No stenosis. C4-C5: Moderate osteophytic ridging encroaching upon the ventral thecal sac. Bilateral foraminal oste ophytes. There is mild central with moderate bilateral foraminal stenosis. C5-C6: Diffuse osteophytic ridging. Very mild central and RIGHT foraminal narrowing. C6-C7: Diffuse annular disc bulging with osteophytic ridging. Central disc protrusion. Moderate centr al and bilateral foraminal stenosis. Effacement of ventral CSF by the disc and osteophyte disease. Fa cet arthritis encroaches upon the posterior cord. C7-T1: No stenosis. Paraspinal soft tissue are normal. IMPRESSION: 1. Status post anterior cervical fusion at C5-6. 2. Moderate increase in the cervical lordosis. 3. Diffuse osteophytic ridging and disc space narrowing and degenerative changes throughout the cervi chang spine. Minimal progression of degenerative disc disease and stenosis since 09/28/2020. 4. Moderate central with bilateral foraminal stenosis at C6-7. Predominately due to osteophytic ridgi ng with a central disc protrusion. 5. C4-5: Mild central with moderate bilateral foraminal stenosis due to osteophytes. 6. Very slight increased signal in the cervical cord at the C6 level. 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 New since the prior study. 7. Very mild central and RIGHT foraminal stenosis at C5-6.
== END 2022-12-06 09:31 | disposition home or self-care (01) ==
PROVIDERS: PCP Registered Nurse; Visit Provider Anesthesiology Pain Medicine
DX: M47.22 Other spondylosis with radiculopathy, cervical region (principal); Z98.1 Arthrodesis status; M50.30 Other cervical disc degeneration, unspecified cervical region; M48.02 Spinal stenosis, cervical region; M25.78 Osteophyte, vertebrae
CPT/HCPCS: 72141

== ENCOUNTER 2022-12-18 11:20 | Outpatient (CLI) | payer BC, SELFPAY ==
--- NOTE | 2022-12-18 12:18 | MM_ITS ---
WS: [id number] BILATERAL 3D TOMOSYNTHESIS DIGITAL SCREENING MAMMOGRAPHY WITH CAD CLINICAL INFORMATION: SCREENING HISTORY: Screening mammogram. No current complaints. COMPARISON: 2021 TECHNIQUE: Bilateral CC and MLO views. FINDINGS: Scattered fibroglandular densities bilaterally. No suspicious focal mass, asymmetry, calcifications, or architectural distortion. No evidence of malignancy. Incidental punctate calcifications RIGHT [address]. IMPRESSION: MM/[place] [id number] BI-RADS: 2-Benign FOLLOW UP: 1 Year Follow-up Recommend return to annual screening mammography.
== END 2022-12-18 11:21 | disposition home or self-care (01) ==
LOC: RAD 11:21
PROVIDERS: PCP Physician Assistant; Visit Provider Physician Assistant
DX: Z12.31 Encounter for screening mammogram for malignant neoplasm of breast (principal)
CPT/HCPCS: 77063; 77067

== ENCOUNTER → 2023-05-10 14:01 | Outpatient (BNVA) | payer MEDICARE, BC, SELFPAY | PROVIDERS: PCP Physician Assistant; Visit Provider Anesthesiology Pain Medicine | DX: M17.11 Unilateral primary osteoarthritis, right knee (principal); M54.9 Dorsalgia, unspecified; G89.29 Other chronic pain; M54.2 Cervicalgia; M47.816 Spondylosis without myelopathy or radiculopathy, lumbar region; M48.061 Spinal stenosis, lumbar region without neurogenic claudication | CPT/HCPCS: 20610; 99214; J1010; J3490 ==

== ENCOUNTER → 2023-08-06 08:00 | Outpatient (BNVA) | payer MEDICARE, BC, SELFPAY | PROVIDERS: PCP Physician Assistant; Visit Provider Anesthesiology Pain Medicine | DX: G89.29 Other chronic pain; M47.816 Spondylosis without myelopathy or radiculopathy, lumbar region; M51.16 Intervertebral disc disorders with radiculopathy, lumbar region; M54.2 Cervicalgia | CPT/HCPCS: 99214 ==

== ENCOUNTER 2023-09-15 19:37 | Emergency (ER) | payer MEDICARE, BC, SELFPAY ==
[2023-09-15 19:46] VITALS: BP 160/83; PULSE 70; RESP 18; TEMP 36.6; O2SAT 96; BMI 31.5
--- NOTE | 2023-09-15 19:58 | W.ED.ANIMALB ---
HPI - Animal Bite General: Chief Complaint: Animal Bite Stated Complaint: Cat bite on right finger Time Seen by Provider: 09/15/23 19:52 History of Present Illness: 63-year-old female was bit by a kitten last night that was fair BUT she was trying to catch. Patient has 1 puncture wound to the dorsal hand. Patient reports that she lanced it last night and some white drainage came from it. Site appears minimal and red and no significant swelling or heat. Review of Systems General: Reports: 10 or more systems reviewed and unremarkable except in HPI and below PFSH ED PFSH: Medical History Myalgia, other site Rheumatoid factor positive Positive BJ (antinuclear antibody) Dental caries Chest pain Mitral valve regurgitation Myalgia Sjogrens syndrome Hypertension Surgical History Hx of arthroscopic knee surgery History of surgery on wrist Hx of carpal tunnel repair Hx of total hysterectomy Hx of neck surgery S/P total knee replacement (~1994) S/P carpal tunnel release (~2014) S/P cholecystectomy (~1981) Family History Mother CAD (coronary artery disease) Cancer Lung disease Stroke Father Myocardial infarction CAD (coronary artery disease) Son Anesthesia complication Family/Other CAD (coronary artery disease) Cancer Lung disease Grandfather Cancer Grandmother Diabetes Denies family history of Clotting disorder Dementia Chronic kidney disease (CKD) Suicide Bleeding disorder Social History Smoking and tobacco/nicotine status: never used tobacco/nicotine Second hand smoke exposure: Yes Alcohol intake: never Substance/Drug Use: never Lives independently: Yes Household members: spouse Physical Exam Const: COMMON NORMALS: alert HENMT: COMMON NORMALS: normocephalic HEAD & SCALP: normocephalic Neck/C-Spine: COMMON NORMALS: full ROM Resp: COMMON NORMALS: normal respiratory effort and clear to auscultation bilaterally AUSCULTATION: clear to auscultation bilaterally Cardio: COMMON NORMALS: regular rate RATE: regular rate GI: COMMON NORMALS: non-tender Back/Pelvis: COMMON NORMALS: thoracic and lumbar spine normal to inspection Extremity: RIGHT UPPER EXTREMITY: Yes hand & digits (Puncture wound to the right dorsal hand with minimal redness) Neuro: SENSORIUM/ORIENTATION: Yes alert Skin: TRAUMA: puncture (Single puncture less than 1 cm redness right dorsal hand) Course Vital Signs: Vital signs: Vital Signs Temperature 98 F 09/15/23 19:46 Pulse Rate 70 09/15/23 19:46 Respiratory Rate 18 09/15/23 19:46 Blood Pressure 160/83 09/15/23 19:46 Pulse Oximetry 96 09/15/23 19:46 MDM - Animal Bite Medical Decision Making 63-year-old female comes in today for concerns of puncture wound to the right dorsal hand. On exam patient has normal range of motion. Patient has a single puncture wound to the right dorsal hand at the base of the index finger. No significant redness is noted. No drainage is noted from the puncture wound. Differential diagnosis includes wound infection, foreign body, fracture. No signs of serious injury. Patient be started on Augmentin. Patient has had various allergies to medication but penicillins only cause thrush and yeast. I reviewed this with patient who agreed to take medications as directed. No radiology studies performed this visit Discharge Plan Discharge Patient Disposition: Home Clinical Impression: Cat bite of right hand Qualifiers: Encounter type: initial encounter Qualified Code(s): S61.451A - Open bite of right hand, initial encounter Condition: Stable Prescriptions: New amoxicillin-pot clavulanate 875-125 mg tablet 1 tab PO BID Qty: 14 0RF No Action OTC thyroid care 1 tab PO DAILY magnesium aspartate HCl 61 mg (615 mg) tablet,delayed release (DR/EC) 61 mg PO DAILY cholecalciferol (vitamin D3) 50 mcg (2,000 unit) capsule 50 mcg PO DAILY zinc 50 mg tablet 50 mg PO DAILY vitamin E 200 unit capsule 200 unit PO DAILY omega-3 fatty acids [Super [place]-3] 1,000 mg capsule 1,000 mg PO DAILY diltiazem HCl 60 mg tablet 120 mg PO TID ketoconazole 2 % cream 1 applic topical BID Qty: 60 3RF Rx Instructions: Apply to affected areas and skin folds x3 weeks. May use as needed for flares. bupivacaine (PF) 0.25 % (2.5 mg/mL) solution 2 ml Infiltration ONCE Qty: 1 0RF methylprednisolone 4 mg tablets,dose pack See Rx Instructions PO PER PKG DIR Qty: 21 0RF Rx Instructions: PO PER PKG DIR methylprednisolone 4 mg tablets,dose pack See Rx Instructions PO PER PKG DIR Qty: 21 0RF Rx Instructions: may elevate heart rate, PO PER PKG DIR hydrocodone-acetaminophen 5-325 mg tablet 1 tab PO tizanidine 4 mg capsule 4 mg PO BID PRN tizanidine 4 mg tablet 4 mg PO BID PRN (Reason: muscle spasticity) Qty: 60 0RF biotin 5 mg Tablet 5 mg PO DAILY Bioflavonoids, [place] Powder 1 ea PO DAILY Probiotic 3 billion cell Capsule 3,000 mmu cells PO DAILY Rx Instructions: administer with a meal Alive Premium Women's 50 Plus 80 mcg-166.7 mcg-66.7 mg Tablet,Chewable 1 tab PO DAILY valacyclovir 1 gram tablet 1 mg PO BID pantoprazole 40 mg tablet,delayed release (DR/EC) 40 mg PO BID methocarbamol 750 mg tablet 750 mg PO Q6H PRN (Reason: spasms) Qty: 20 0RF Discharge Orders: Discharge ED (Routine); Ordered 09/15/23 Ordered By: Placido Flores Referrals: Homa Akins PA [Primary Care Provider] - Discharge Diet: Usual diet Discharge Activity: Increase activity as tolerated Patient Instructions: Animal Bite (ED) Activity Restrictions/Additional Instructions: Home and rest. Clean wound twice a day with mild soap and water and apply [id number] antibiotic ointment. Take oral antibiotic as directed. Monitor site for increasing redness and swelling. Return to ER for new concerns or worsening symptoms such as severe pain, significant swelling and redness, or fever greater than 100.4. Coding Level of Care Code ED Gastroenterology Nurse for Harshad Roper
[2023-09-15] MEDS: amoxicillin-clav 875-125 mg Tablet 1 TAB PO (20:37)
[2023-09-15 20:43] VITALS: BP 153/92; PULSE 88; RESP 16
== END 2023-09-15 20:49 | disposition home or self-care (01) ==
PROVIDERS: Emergency Provider Nurse Practitioner Family; PCP Physician Assistant
DX: S61.451A Open bite of right hand, initial encounter (principal); W55.01XA Bitten by cat, initial encounter; Z77.22 Contact with and (suspected) exposure to environmental tobacco smoke (acute) (chronic); I10 Essential (primary) hypertension
CPT/HCPCS: 99283

== ENCOUNTER → 2023-09-23 16:27 | Outpatient (BNVA) | payer MEDICARE, BC, SELFPAY | PROVIDERS: PCP Physician Assistant; Visit Provider Family Medicine | DX: R39.9 Unspecified symptoms and signs involving the genitourinary system (principal) | CPT/HCPCS: 81000; 87086 ==

== ENCOUNTER → 2023-10-17 13:42 | Outpatient (BNVA) | payer MEDICARE, BC, SELFPAY | PROVIDERS: PCP Physician Assistant; Visit Provider Specialist | DX: M25.561 Pain in right knee; G89.29 Other chronic pain; M25.461 Effusion, right knee; M17.11 Unilateral primary osteoarthritis, right knee; M35.00 Sjogren syndrome, unspecified; R76.8 Other specified abnormal immunological findings in serum | CPT/HCPCS: 73560; 73565; 99205 ==

== ENCOUNTER 2023-11-05 12:25 | Outpatient (CLI) | payer MEDICARE, BC, SELFPAY ==
--- NOTE | 2023-11-05 13:00 | MR_ITS ---
WS: [id number] MRI RIGHT KNEE NONCONTRAST TECHNIQUE: Axial PD, coronal PD fat sat, coronal PD, sagittal PD, and sagittal PD fat-sat images obta ined. CLINICAL INFORMATION: right knee pain COMPARISON: MRI 2020 FINDINGS: Distal quadriceps and patella tendons are intact. ACL and PCL appears intact. Moderate tricompartmental arthritis. Moderate chondromalacia patella. Chondral fissuring involving th e patellar cartilage. No subchondral edema. Medial and lateral patellar retinaculum appear intact. Sm all suprapatellar effusion. Medial and lateral collateral ligaments appear intact. Normal popliteal fossa. Normal lateral meniscus. Chronic thinning of the medial meniscus. Grade III chondromalacia medial and lateral joint compartments. Slight peripheral extrusion of the medial meniscus. Chronic intrasubstan ce signal normality involving the anterior and posterior horns medial meniscus at the meniscal root. Chronic appearing tear involving the anterior horn medial meniscus. MR/MR knee RT wo con* [id number] IMPRESSION: 1. Moderate tricompartmental arthritis. 2. 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 3. Small suprapatellar effusion. 4. ACL and PCL appear intact. 5. Chronic appearing intrasubstance signal abnormality with chronic appearing tear involving the anterior horn medial meniscus at the meniscal root. Chronic peripheral extrusion of the medial meniscus with joint space narrowing. 6. Grade III chondromalacia medial and lateral joint compartments. Outbridge grading: grade III: partial-thickness cartilage loss with focal ulcer ation
== END 2023-11-05 12:26 | disposition home or self-care (01) ==
LOC: RAD 12:26
PROVIDERS: PCP Physician Assistant; Visit Provider Specialist
DX: M17.11 Unilateral primary osteoarthritis, right knee (principal); M22.41 Chondromalacia patellae, right knee; M23.211 Derangement of anterior horn of medial meniscus due to old tear or injury, right knee
CPT/HCPCS: 73721

== ENCOUNTER 2023-11-06 16:58 | Emergency (ER) | payer MEDICARE, BC, SELFPAY ==
[2023-11-06 17:12] VITALS: BP 167/80; PULSE 90; RESP 16; TEMP 36.7; O2SAT 97; BMI 31.8
[2023-11-06 17:32] LABS: Basophils % 0.1 %; Hematocrit 42.4 % (36-47); Lymphocytes # 0.8 10^3/uL (0.8-4.8); Lymphocytes % 7.2 %; Mean Corpuscular HGB Conc 32.8 g/dL (30-55); Mean Corpuscular Hemoglobin 30.4 pg (27-33); Mean Corpuscular Volume 92.8 fl (85-98); Mean Platelet Volume 9.2 fL (7.4-10.4); Monocytes # 0.3 10^3/uL (0.2-0.9); Monocytes % 2.9 %; Neutrophils # 9.54 10^3/uL (1.8-7.7); Neutrophils % 89.3 %; Nucleated Red Blood Cells % 0 %; Platelet Count 222 10^3/cmm (157-399); Red Blood Count 4.57 10^6/uL (3.85-5.65); Red Cell Distribution Width 13.5 % (12.1-15.1); White Blood Count 10.68 10^3/uL (3.29-11.43)
[2023-11-06 17:53] LABS: Alanine Aminotransferase 138 U/L (0-33); Alkaline Phosphatase 99 U/L (35-105); Aspartate Amino Transferase 78 U/L (0-32); Blood Urea Nitrogen 11 mg/dL (8-23); Calcium 9.8 mg/dL (8.5-10.5); Carbon Dioxide 24 mmol/L (22-29); Chloride 105 mmol/L (98-107); Creatinine Clr Calc Pharmacy 72.7104; Globulin 3.7 g/dL (1.3-4.6); Glomerular Filtration Rate 72.4 mL/min (90-130); Glucose 126 mg/dL (65-115); Lipase 60 U/L (13-60); Osmolality Calculated 293 mOsm/kg (285-295); Sodium 141 mmol/L (136-145); Total Bilirubin 0.3 mg/dL (0.15-1.2); Total Protein 7.7 g/dL (6.6-8.7)
--- NOTE | 2023-11-06 18:10 | CTR_ITS ---
PROCEDURE INFORMATION: Exam: CT Abdomen And Pelvis With Contrast Exam date and time: 11/06/2023 7:14 PM Age: 63 years old Clinical indication: Abdominal pain; Flank; Right; Prior surgery; Surgery date: 6+ months; Surgery type: Hyst, gb; Additional info: Right flank pain, HX of kidney infection TECHNIQUE: Imaging protocol: Computed tomography of the abdomen and pelvis with contrast. Radiation optimization: All CT scans at this facility use at least one of these dose optimization techniques: automated exposure control; mA and/or kV adjustment per patient size (includes targeted exams where dose is matched to clinical indication); or iterative reconstruction. Contrast material: OMNI 350; Contrast volume: 100 ml; Contrast route: INTRAVENOUS (IV); COMPARISON: CT kidney stone [id number] 06/16/2019 9:10 PM RADIATION DOSE METRICS: Total DLP (mGy-cm): 693 FINDINGS: Liver: Diffuse hepatic steatosis. Stable 1.3 cm left hepatic cyst. Gallbladder and biliary ducts: Status post cholecystectomy. Pancreas: Normal. No ductal dilation. Spleen: Normal. No splenomegaly. Adrenal glands: Normal. No mass. Kidneys and ureters: Normal. No hydronephrosis. Subcentimeter hypodensity in the lower pole of the right kidney is too small to characterize but favors a small cyst. Stomach and bowel: Unremarkable. No obstruction. No mucosal thickening. Appendix: No evidence of appendicitis. Intraperitoneal space: Unremarkable. No free air. No significant fluid collection. Vasculature: Mild atherosclerotic calcifications of the abdominal aorta and its branch vessels. Lymph nodes: Unremarkable. No enlarged lymph nodes. Urinary bladder: Unremarkable as visualized. Reproductive: Status post hysterectomy. Bones/joints: Moderate degenerative changes of the lumbar spine. No acute or aggressive osseous lesion. Soft tissues: Unremarkable. CT/CT abdomen pelvis w con* [id number] IMPRESSION: 1. No nephrolithiasis or obstructive uropathy. 2. Hepatic steatosis. 3. Status post cholecystectomy. 4. Additional ancillary findings as above. COMMENTS: Consistent with the [employer]'s Incidental Findings Committee white paper (J Am Summer Radiol 2018): Any incidental renal lesion less than 1 cm or classified as too small to characterize, or any incidental cystic renal lesion characterized as simple-appearing, is likely benign. No follow-up imaging is recommended for these lesions per consensus recommendations based on imaging criteria.
--- NOTE | 2023-11-06 18:23 | ED_ITS ---
HPI - Female Genitourinary 2 General: Chief complaint: Urogenital-Female Stated complaint: right side pain Time Seen by Provider: 11/06/23 17:48 Source: patient Mode of arrival: ambulatory Limitations: no limitations History of Present Illness: Patient is a 63-year-old female presenting to the emergency department complaining of right flank pain onset past few days. She reports history of numerous urinary tract infections, stating she had 8 in the span of 2 months 1 time. Has seen urology in the past, but not recently. She was seen in urgent care this morning and prescribed Levaquin to cover for potential kidney infection. States that it is only gotten worse, and this does feel different as she is not having near as much dysuria or abdominal pain. She is denying any nausea or vomiting, chest pain, breathing difficulties, lightheadedness, dizziness, or other symptoms at this time. She denies any history of kidney stones. States that she has Sjogren's disease and rheumatoid arthritis and periodically requires steroids. She denies any recent heavy lifting. MD elicited complaint: flank pain Pertinent past history: recurrent UTIs Onset (ago): day(s) Severity: moderate Female Urogenital Radiation: Non-Radiating Quality of pain: cramping Consistency: constant and progressively worsening Exacerbating factors: movement Relieving factors: none Associated symptoms: Reports no associated symptoms; Deny abdominal pain, headache(s) or nausea Related Data Home Medications Medication Instructions Recorded Confirmed OTC thyroid care 1 tab PO DAILY 04/23/19 10/17/23 magnesium aspartate HCl 61 mg (615 61 mg PO DAILY 04/23/19 10/17/23 mg) tablet,delayed release cholecalciferol (vitamin D3) 50 50 mcg PO DAILY 08/17/20 10/17/23 mcg (2,000 unit) capsule omega-3 fatty acids 1,000 mg 1,000 mg PO DAILY 08/17/20 10/17/23 capsule (Super [place]-3) vitamin E 200 unit capsule 200 unit PO DAILY 08/17/20 10/17/23 zinc 50 mg tablet 50 mg PO DAILY 08/17/20 10/17/23 diltiazem HCl 60 mg tablet 120 mg PO TID 06/08/21 10/17/23 Bioflavonoids, Staves 1 ea PO DAILY 12/09/21 10/17/23 biotin 5 mg tablet 5 mg PO DAILY 12/09/21 10/17/23 lactobacillus combination no.4 3 3,000 mmu cells PO DAILY 12/09/21 10/17/23 billion cell capsule (Probiotic) [id number] 80 mcg-lutein 1 tab PO DAILY 12/09/21 10/17/23 166.7 mcg-herbal 66.7 mg chew tablet (Alive Premium Women's 50 Plus) pantoprazole 40 mg tablet,delayed 40 mg PO BID 12/09/21 10/17/23 release valacyclovir 1 gram tablet 1 mg PO BID 12/09/21 10/17/23 hydrocodone 5 mg-acetaminophen 325 1 tab PO 09/12/22 10/17/23 mg tablet tizanidine 4 mg capsule 4 mg PO BID PRN 09/12/22 10/17/23 Previous Rx's Medication Instructions Recorded ketoconazole 2 % topical cream 1 applic topical BID #60 grams 11/08/21 tizanidine 4 mg tablet 4 mg PO BID PRN muscle spasticity 09/14/22 #60 tabs methocarbamol 750 mg tablet 750 mg PO Q6H PRN spasms #20 tabs 10/27/22 methylprednisolone 4 mg tablets in See Rx Instructions PO PER PKG DIR 11/02/22 a dose pack #21 ea methylprednisolone 4 mg tablets in See Rx Instructions PO PER PKG DIR 04/04/23 a dose pack #21 ea cephalexin 500 mg capsule 500 mg PO BID #6 caps 09/23/23 prednisone 20 mg tablet 60 mg (3 x 20 mg) PO ONCE 5 days 11/06/23 #15 tabs Allergies Allergy/AdvReac Type Severity Reaction Status Date / Time doxycycline Allergy Intermediate ALGY-Hives Verified 10/17/23 13:54 adhesive Allergy rash Verified 10/17/23 13:54 cefdinir [From Omnicef] Allergy HIVES Verified 10/17/23 13:54 cefixime Allergy HIVES Verified 10/17/23 13:54 clonidine Allergy ADR-Headach Verified 10/17/23 13:54 e escitalopram Allergy Unknown Verified 10/17/23 13:54 latex Allergy Unknown Verified 10/17/23 13:54 levofloxacin [From Levaquin] Allergy Unknown Verified 10/17/23 13:54 lisinopril Allergy ALGY-Difficulty Verified 10/17/23 13:54 Breathing metronidazole Allergy Unknown Verified 10/17/23 13:54 nitrofurantoin Allergy Unknown Verified 10/17/23 13:54 olmesartan [From Benicar] Allergy ALGY-Difficulty Verified 10/17/23 13:54 Breathing paroxetine [From Paxil] Allergy Unknown Verified 10/17/23 13:54 quinapril Allergy ALGY-Difficulty Verified 10/17/23 13:54 Breathing rabeprazole [From AcipHex] Allergy Unknown Verified 10/17/23 13:54 rosuvastatin [From Crestor] Allergy ALGY-Difficulty Verified 10/17/23 13:54 Breathing Sulfa (Sulfonamide Allergy ALGY-Swell Verified 10/17/23 13:54 Antibiotics) Lip/Tongue/Throat baclofen AdvReac RACING Verified 10/17/23 13:54 HEART methadone AdvReac ELEVATED Verified 10/17/23 13:54 BP methylprednisolone AdvReac INCREASED Verified 10/17/23 13:54 [From Solu-Medrol] HEART RATE/ ELEVATED BP naproxen AdvReac GI UPSET Verified 10/17/23 13:54 oxycodone [From OxyContin] AdvReac ELEVATED Verified 10/17/23 13:54 PULSE RATE Penicillins AdvReac THRUSH / Verified 10/17/23 13:54 YEAST INFECTION Review of Systems 2 General: Reports: 10 or more systems reviewed and unremarkable except in HPI and below Const: Denies: fever(s), chills, change in appetite, change in weight or diaphoresis ENMT: Denies: throat pain or hoarseness Card: Denies: chest pain, palpitations or lightheadedness Resp: Denies: dyspnea, productive cough or wheezing GI: Denies: abdominal pain, nausea, vomiting, diarrhea, constipation, bloating, change in stool character or hematochezia : Reports: flank pain; Denies: difficulty voiding, dysuria, urinary frequency, urinary urgency or hematuria Musc: Denies: neck pain or back pain Skin/Breast: Denies: rash or new lesions Neuro: Denies: headache(s) or dizziness PFSH ED 2 PFSH: Medical History Myalgia, other site Rheumatoid factor positive Positive BJ (antinuclear antibody) Dental caries Chest pain Mitral valve regurgitation Myalgia Sjogrens syndrome Hypertension Surgical History Hx of arthroscopic knee surgery History of surgery on wrist Hx of carpal tunnel repair Hx of total hysterectomy Hx of neck surgery S/P total knee replacement (~1994) S/P carpal tunnel release (~2014) S/P cholecystectomy (~1981) Family History Mother CAD (coronary artery disease) Cancer Lung disease Stroke Father Myocardial infarction CAD (coronary artery disease) Son Anesthesia complication Family/Other CAD (coronary artery disease) Cancer Lung disease Grandfather Cancer Grandmother Diabetes Denies family history of Clotting disorder Dementia Chronic kidney disease (CKD) Suicide Bleeding disorder Social History Smoking and tobacco/nicotine status: never used tobacco/nicotine Second hand smoke exposure: Yes Alcohol intake: never Substance/Drug Use: never Lives independently: Yes Household members: spouse Physical Exam 2 Const: COMMON NORMALS: no acute distress, average body habitus, patient oriented x3, no limitations, healthy appearing, alert and well nourished G ENERAL APPEARANCE: cooperative and comfortable ORIENTATION/CONSCIOUSNESS: Yes awake HENMT: COMMON NORMALS: normocephalic, atraumatic, hearing grossly normal bilaterally, external ears normal, Normal external nose present, Normal nasal mucous membranes and turbinates present and moist oral mucous membranes HEAD & SCALP: normocephalic and atraumatic NOSE: Normal external nose present and Normal nasal mucous membranes and turbinates present EXTERNAL EAR: Yes external ears normal Eye: COMMON NORMALS: Equal, round and reactive pupils present, EOMs intact bilaterally, conjunctivae normal and normal visual garrison by confrontation C ONJUNCTIVA: Yes conjunctivae normal PUPIL: Yes Equal, round and reactive pupils present Neck/C-Spine: COMMON NORMALS: full ROM, supple, no meningeal signs and no JVD Resp: COMMON NORMALS: normal respiratory effort, No retractions, No use of accessory muscles and clear to auscultation bilaterally AUSCULTATION: clear to auscultation bilaterally, no crackles, no rales, no rhonchi and no wheezes Cardio: COMMON NORMALS: no JVD, regular rate, regular rhythm, S1 normal heart sound present, S2 normal heart sound present, No gallops present (Cardio), No clicks present (Cardio), No murmurs present (Cardio), No rub (Cardio) and Peripheral pulses 2+ throughout RATE: regular rate RHYTHM: regular rhythm HEART SOUNDS: S1 normal heart sound present and S2 normal heart sound present PERIPHERAL PULSES: Peripheral pulses 2+ throughout GI: COMMON NORMALS: Normal to inspection, nondistended, normoactive bowel sounds present, Soft to palpation, non-tender, No hepatosplenomegaly present and no masses AUSCULTATION: Yes normoactive bowel sounds PALPATION: Yes Soft to palpation, No Guarding due to palpation present (GI), No Rigid due to palpation and Yes No hepatosplenomegaly present RECTAL EXAM: deferred : BLADDER/KIDNEY EXAM: Yes CVA tenderness on the right Back/Pelvis: COMMON NORMALS: no thoracic nor lumbar tenderness GENERAL BACK: Yes CVA tenderness Extremity: COMMON NORMALS: normal to inspection and full ROM Neuro: COMMON NORMALS: patient oriented x3, moves all extremities, no focal motor deficits and no sensory deficits noted SENSORIUM/ORIENTATION: Yes alert MENINGEAL SIGNS: Yes no meningeal signs Psych: COMMON NORMALS: mental status grossly normal, cooperative and speech normal SPEECH: Yes normal speech Skin: COMMON NORMALS: no rashes or lesions noted GENERAL SKIN EXAM: no rashes or lesions noted Course 2 Vital Signs: Vital signs: Vital Signs Temperature 98.0 F 11/06/23 17:12 Pulse Rate 70 11/06/23 20:48 Respiratory Rate 16 11/06/23 19:02 Blood Pressure 154/90 11/06/23 19:02 Pulse Oximetry 96 11/06/23 20:48 Oxygen Delivery Me thod Room Air 11/06/23 19:02 MDM - Female Medical Decision Making Patient seen in urgent care earlier diagnosed with a urinary tract infection and prescribed Levaquin. Came in today as she states that she was not having so much urinary tract symptoms as she was right flank pain, and is concerned that she has an issue with her kidney. Reports a history of rheumatoid arthritis and Sjogren's disease, states she periodically take steroids and this has seemed to help with her back pain in the past as she has had this before. Her urinalysis did not show any signs of a urinary tract infection. Additionally her blood work was normal. And a CT abdomen and pelvis did not show any stones, signs of pyelonephritis, or other abnormalities that could explain her pain. She states that she now thinks this pain is due to her autoimmune issues, and I stated that I would prescribe steroids at her request. She is also to follow-up with her primary care provider for further evaluation, cannot rule out that the pain at this time is musculoskeletal in nature and did inform her to take Tylenol and ibuprofen for this. Reasons to return were discussed and I did encourage her to stop taking her Levaquin as she has no signs of urinary tract infection. Lab Data 11/06/23 17:22 11/06/23 17:22 Radiology Impressions Abdomen/Pelvis CT 11/06/23 18:10 IMPRESSION: 1. No nephrolithiasis or obstructive uropathy. 2. Hepatic steatosis. 3. Status post cholecystectomy. 4. Additional ancillary findings as above. COMMENTS: Consistent with the [employer]'s Incidental Findings Committee white paper (J Am Summer Radiol 2018): Any incidental renal lesion less than 1 cm or classified as too small to characterize, or any incidental cystic renal lesion characterized as simple-appearing, is likely benign. No follow-up imaging is recommended for these lesions per consensus recommendations based on imaging criteria. Laboratory Results WBC 10.68 10^3/uL (3.29-11.43) 11/06/23 17:22 RBC 4.57 10^6/uL (3.85-5.65) 11/06/23 17:22 Hgb 13.90 g/dL (11.27-16.99) 11/06/23 17:22 Hct 42.4 % (36-47) 11/06/23 17:22 MCV 92.8 fl (85-98) 11/06/23 17:22 MCH 30.4 pg (27-33) 11/06/23 17:22 MCHC 32.8 g/dL (30-55) 11/06/23 17:22 RDW 13.5 % (12.1-15.1) 11/06/23 17:22 Plt Count 222 10^3/cmm (157-399) 11/06/23 17:22 MPV 9.2 fL (7.4-10.4) 11/06/23 17: Neut % (Auto) 89.3 % 11/06/23 17:22 Lymph % (Auto) 7.2 % 11/06/23 17:22 [place] % (Auto) 2.9 % 11/06/23 17:22 Eos % (Auto) 0.0 % 11/06/23 17:22 Baso % (Auto) 0.1 % 11/06/23 17:22 Neut # (Auto) 9.54 10^3/uL (1.8-7.7) H 11/06/23 17:22 Lymph # (Auto) 0.8 10^3/uL (0.8-4.8) 11/06/23 17:22 [place] # (Auto) 0.3 10^3/uL (0.2-0.9) 11/06/23 17:22 Eos # (Auto) 0.0 10^3/uL (0.0-0.8) 11/06/23 17:22 Baso # (Auto) 0.0 10^3/uL (0.0-0.1) 11/06/23 17:22 Nucleated RBC % (auto) 0 % 11/06/23 17:22 Nucleated RBCs # 0.0 /100WBC 11/06/23 17:22 Sodium 141 mmol/L (136-145) 11/06/23 17:22 Potassium 4.0 mmol/L (3.5-5.1) 11/06/23 17:22 Chloride 105 mmol/L (98-107) 11/06/23 17:22 Carbon Dioxide 24 mmol/L (22-29) 11/06/23 17:22 Anion Gap 16.0 (5-19) 11/06/23 17:22 BUN 11 mg/dL (8-23) 11/06/23 17:22 Creatinine 0.8 mg/dL (0.5-0.9) 11/06/23 17:22 GFR Calculation 72.4 mL/min (90-130) L 11/06/23 17:22 Glucose 126 mg/dL (65-115) H 11/06/23 17:22 Calculated Osmolality 293 mOsm/kg (285-295) 11/06/23 17:22 Calcium 9.8 mg/dL (8.5-10.5) 11/06/23 17:22 Total Bilirubin 0.3 mg/dL (0.15-1.2) 11/06/23 17:22 AST 78 U/L (0-32) H 11/06/23 17:22 ALT 138 U/L (0-33) H 11/06/23 17:22 Alkaline Phosphatase 99 U/L (35-105) 11/06/23 17:22 Total Protein 7.7 g/dL (6.6-8.7) 11/06/23 17:22 Albumin 4.0 g/dL (3.5-5.2) 11/06/23 17:22 Globulin 3.7 g/dL (1.3-4.6) 11/06/23 17:22 Lipase 60 U/L (13-60) 11/06/23 17:22 Urine Color Yellow (Yellow) 11/06/23 19:00 Urine Appearance Clear (CLEAR) 11/06/23 19:00 Urine pH 6.5 (5-7) 11/06/23 19:00 Ur Specific [place] 1.008 (1.005-1.030) 11/06/23 19:00 Urine Protein Negative (Negative) 11/06/23 19:00 Urine Glucose (UA) Negative (Normal) 11/06/23 19:00 Urine Ketones Negative (Negative) 11/06/23 19:00 Urine Blood Negative (Negative) 11/06/23 19:00 Urine Nitrate Negative (Negative) 11/06/23 19:00 Urine Bilirubin Negative (Negative) 11/06/23 19:00 Urine Urobilinogen 0.2 mg/dL (Negative) 11/06/23 19:00 Ur Leukocyte Esterase Trace (Negative) A 11/06/23 19:00 Urine RBC 0-2 /hpf (0-2) 11/06/23 19:00 Urine WBC 6-10 /hpf (0-5) 11/06/23 19:00 Ur Squamous Epith Cells 0-5 /hpf (0-5) 11/06/23 19:00 Amorphous Sediment Not Reportable 11/06/23 19:00 Urine Bacteria None seen /hpf (NONE) 11/06/23 19:00 Hyaline Casts 0.81 /lpf 11/06/23 19:00 All radiology interpretation(s) finalized by discharge Discharge Plan Discharge Patient Disposition: Home Clinical Impression: Musculoskeletal back pain Condition: Stable Prescriptions: New prednisone 20 mg tablet 60 mg PO ONCE 5 Days Qty: 15 0RF No Action OTC thyroid care 1 tab PO DAILY magnesium aspartate HCl 61 mg (615 mg) tablet,delayed release (DR/EC) 61 mg PO DAILY cholecalciferol (vitamin D3) 50 mcg (2,000 unit) capsule 50 mcg PO DAILY zinc 50 mg tablet 50 mg PO DAILY vitamin E 200 unit capsule 200 unit PO DAILY omega-3 fatty acids [Super [place]-3] 1,000 mg capsule 1,000 mg PO DAILY diltiazem HCl 60 mg tablet 120 mg PO TID ketoconazole 2 % cream 1 applic topical BID Qty: 60 3RF Rx Instructions: Apply to affected areas and skin folds x3 weeks. May use as needed for flares. bupivacaine (PF) 0.25 % (2.5 mg/mL) solution 2 ml Infiltration ONCE Qty: 1 0RF methylprednisolone 4 mg tablets,dose pack See Rx Instructions PO PER PKG DIR Qty: 21 0RF Rx Instructions: PO PER PKG DIR methylprednisolone 4 mg tablets,dose pack See Rx Instructions PO PER PKG DIR Qty: 21 0RF Rx Instructions: may elevate heart rate, PO PER PKG DIR cephalexin 500 mg capsule 500 mg PO BID Qty: 6 0RF hydrocodone-acetaminophen 5-325 mg tablet 1 tab PO tizanidine 4 mg capsule 4 mg PO BID PRN tizanidine 4 mg tablet 4 mg PO BID PRN (Reason: muscle spasticity) Qty: 60 0RF biotin 5 mg Tablet 5 mg PO DAILY Bioflavonoids, Staves Powder 1 ea PO DAILY Probiotic 3 billion cell Capsule 3,000 mmu cells PO DAILY Rx Instructions: administer with a meal Alive Premium Women's 50 Plus 80 mcg-166.7 mcg-66.7 mg Tablet,Chewable 1 tab PO DAILY valacyclovir 1 gram tablet 1 mg PO BID pantoprazole 40 mg tablet,delayed release (DR/EC) 40 mg PO BID methocarbamol 750 mg tablet 750 mg PO Q6H PRN (Reason: spasms) Qty: 20 0RF Discharge Orders: Discharge ED (Routine); Ordered 11/06/23 Ordered By: Akshat Lerma Referrals: Homa Akins PA [Primary Care Provider] - Discharge Diet: Usual diet Discharge Activity: Increase activity as tolerated Patient Instructions: Back Pain (ED) Activity Restrictions/Additional Instructions: Steroids as prescribed. Please follow-up with primary care provider as discussed. Return with any new or worsening symptoms. Coding Level of Care Code ED Head Animal Keeper for Harshad Roper
[2023-11-06 19:02] VITALS: BP 154/90; PULSE 75; RESP 16; O2SAT 99
[2023-11-06 19:03] LABS: Charge for UA Resulting for Rev
[2023-11-06] MEDS: orphenadrine 30 mg/mL Inj 2 mL 60 MG IM (19:07)
[2023-11-06 19:10] LABS: Bilirubin Urine Negative (Negative); Blood Urine Negative (Negative); Glucose Urine UA Negative (Normal); Ketones Urine Negative (Negative); Leukocyte Esterase Urine Trace (Negative); Nitrate Urine Negative (Negative); Protein Urine Negative (Negative); Specific Gravity, Urine 1.008 (1.005-1.030); Urine Appearance Clear (CLEAR); Urine Color Yellow (Yellow); Urobilinogen Urine 0.2 mg/dL (Negative); pH Urine 6.5 (5-7)
[2023-11-06 19:16] LABS: Bacteria Urine None Seen /hpf; Hyaline Casts Urine 0.81 /lpf; RBC Urine 0-2 /hpf (0-2); Squamous Epithelial Cell Urine 0-5 /hpf (0-5)
[2023-11-06] MEDS: iohexol 350 mg/mL 500 mL Btl (per mL) IV (19:18)
[2023-11-06] MEDS: dexamethasone 10 mg/mL INJ IVP (20:41)
[2023-11-06 20:48] VITALS: PULSE 70; O2SAT 96
== END 2023-11-06 20:50 | disposition home or self-care (01) ==
PROVIDERS: Emergency Medicine; Emergency Provider Physician Assistant; PCP Physician Assistant
DX: M54.9 Dorsalgia, unspecified (principal); Z77.22 Contact with and (suspected) exposure to environmental tobacco smoke (acute) (chronic); I10 Essential (primary) hypertension
CPT/HCPCS: 36415; 74177; 80053; 81003; 81015; 83690; 85025; 96372; 96374; 99285; J1100; J2360; Q9967

== ENCOUNTER → 2023-11-21 15:15 | Outpatient (BNVA) | payer MEDICARE, BC, SELFPAY | PROVIDERS: PCP Physician Assistant; Visit Provider Specialist | DX: M25.561 Pain in right knee (principal); G89.29 Other chronic pain; M17.0 Bilateral primary osteoarthritis of knee | CPT/HCPCS: 99214 ==

== ENCOUNTER 2023-11-29 08:45 | Outpatient (CLI) | payer MEDICARE, BC, SELFPAY ==
--- NOTE | 2023-11-29 08:53 | MR_ITS ---
WS: [id number] MRI RIGHT SHOULDER HISTORY: Bilateral shoulder pain. COMPARISON: 10/18/2023 radiograph TECHNIQUE: Multiplanar sequences of the shoulder joint are submitted. Moderate AC joint arthritis. Joint space narrowing with osteophytes and small erosions along the join t surface. Mild encroachment upon the supraspinatus. Mild subacromial impingement. No os acromion. Bi ceps tendon with partial subluxation. Small amount of increased fluid in the biceps tendon sheath. Full-thickness supraspinatus tear directly over the humeral head measures 7 mm. No tendon retraction. Mild supraspinatus muscle atrophy. Multiloculated cystic mass measures 3.1 x 1.0 cm extends along th e infraspinatus tendon. Moderate tendinopathy in the subscapularis tendon. Mild marrow the glenohumeral joint. No labral tear. Mild subchondral cystic changes posterolateral hu meral head. Mild narrowing of the coracohumeral interval. MR/MR shoulder RT wo con* [id number] IMPRESSION: 1. Moderate AC joint arthritis with encroachment upon the supraspinatus. 2. Mild subacromial impingement. 3. Partial subluxation biceps tendon. 4. Full-thickness tear supraspinatus tendon directly over the humeral head. 5. Mild supraspinatus muscle atrophy. 6. Multiloculated cystic mass extending along the infraspinatus tendon. Gangli on versus fluid accumulation from an occult tear. 7. Moderate tendinopathy distal subscapularis tendon.
--- NOTE | 2023-11-29 08:54 | MR_ITS ---
WS: [id number] MRI LEFT SHOULDER HISTORY: BILAT SHOULDER PAIN COMPARISON: Radiograph 10/18/2023 TECHNIQUE: Multiplanar sequences of the shoulder joint are submitted. Mild AC joint arthritis. Bony hypertrophy with narrowing of the joint space. No os acromion. Downslop ing acromion with subacromial impingement. Normal position of the biceps tendon. Mild narrowing of the glenohumeral joint. No fractures or marrow edema. Mild atrophy of the supraspin atus muscle. No muscle edema. Loculated fluid along the LEFT subscapularis tendon. This fluid continu es superiorly over the humeral head to the supraspinatus tendon. Fluid collection extends into the co racohumeral ligament which is partially torn. Mild fraying along the labrum. No labral tears are iden tified. MR/MR shoulder LT wo con* [id number] IMPRESSION: 1. Mild AC joint arthritis. 2. Mild subacromial impingement upon the supraspinatus. 3. Mild atrophy of the supraspinatus muscle. 4. No rotator cuff tendon tears. No labral tear is identified. 5. There is a lobulated fluid collection along the subscapularis tendon. This fluid collection extends superiorly over the humeral head to the supraspinatus tendon. Although no identifiable labral or rotator cuff tear identified there m ay be an occult tear resulting in this fluid collection. Fluid extends into the partially torn coracohumeral ligament which may be also responsible for the fl uid collection.
== END 2023-11-29 08:46 | disposition home or self-care (01) ==
LOC: RAD 08:47
PROVIDERS: PCP Physician Assistant; Visit Provider Physician Assistant
DX: M19.011 Primary osteoarthritis, right shoulder (principal); M25.412 Effusion, left shoulder; S43.001A Unspecified subluxation of right shoulder joint, initial encounter; S46.011A Strain of muscle(s) and tendon(s) of the rotator cuff of right shoulder, initial encounter; M67.411 Ganglion, right shoulder; M75.91 Shoulder lesion, unspecified, right shoulder; X58.XXXA Exposure to other specified factors, initial encounter
CPT/HCPCS: 73221

== ENCOUNTER → 2023-12-17 13:41 | Outpatient (BNVA) | payer MEDICARE, BC, SELFPAY | PROVIDERS: PCP Physician Assistant; Visit Provider Specialist | DX: M19.011 Primary osteoarthritis, right shoulder (principal); M19.012 Primary osteoarthritis, left shoulder | CPT/HCPCS: 73030; 99214 ==

== ENCOUNTER 2023-12-24 08:56 | Outpatient (CLI) | payer MEDICARE, BC, SELFPAY ==
--- NOTE | 2023-12-24 08:59 | MR_ITS ---
WS: [id number] MRI LUMBAR SPINE NONCONTRAST HISTORY: LUMBAR RADICULOPATHY COMPARISON: 07/15/2021 TECHNIQUE: Sagittal and axial multisequence imaging is submitted. L3 retrolisthesis by 3 mm. 2 mm retrolisthesis of L2. No acute fractures or marrow edema. Mild diffuse disc space narrowing and degeneration most significant at L5 4 5 and L5-S1. Mild progres kat of degenerative changes. Conus terminates normally at L1-2 disc level. L1-L2: Mild annular disc bulging with bilateral paracentral disc protrusions, RIGHT greater than LEFT . Disc protrusions are more prominent than on the prior study. Mild encroachment upon the subarticula r recesses but no high-grade stenosis. L2-L3: Mild diffuse annular disc bulging with ligamentum flavum and facet arthritis. Slightly less en croachment on the RIGHT subarticular recess. There is a tiny RIGHT subarticular disc protrusion. Very slight encroachment and narrowing of the subarticular recesses. Very mild foraminal narrowing. L3-L4: Diffuse annular disc bulging with osteophytic ridging. Moderate ligamentum flavum and facet ar thritis. Disc osteophyte in the LEFT foramen contacting the exiting LEFT L3 nerve root. Mild central and bilateral subarticular recess stenosis with bilateral foraminal stenosis, LEFT greater than RIGHT . L4-L5: Mild annular disc bulging with ligamentum flavum and facet arthritis. There is disc encroachme nt upon the subarticular recesses and the traversing L5 nerve roots. Moderate central stenosis with s ubarticular recess and foraminal stenosis. Stenosis has progressed since the prior study with greater encroachment upon the traversing L5 nerve roots. L5-S1: Diffuse asymmetric disc bulging. Broad-based LEFT foraminal disc protrusion. Slightly greater encroachment upon the LEFT S1 nerve root similar to the prior study. Facet arthritis. No stenosis. Paravertebral soft tissues are negative. Retroaortic LEFT renal vein. MR/MR lumbar spine wo con* [id number] IMPRESSION: 1. Mild degenerative disc disease and facet arthropathy since 2021. 2. L4-5: Moderate central with bilateral subarticular recess and foraminal aubrie nosis. Greater encroachment upon the traversing L5 nerve roots as compared to t he prior study. 3. L1-2: New small bilateral paracentral disc protrusions. Mild encroachment u gonzalo the subarticular recesses. 4. L2-3: Tiny RIGHT subarticular recess disc protrusion. Mild improvement sinc e the prior study. 5. L3-4: Mild central with bilateral subarticular recess and foraminal stenosi s, LEFT greater than RIGHT. 6. L5-S1: Broad-based LEFT foraminal disc protrusion. Mild encroachment upon t he LEFT S1 nerve root.
== END 2023-12-24 08:57 | disposition home or self-care (01) ==
LOC: RAD 08:56
PROVIDERS: PCP Physician Assistant; Visit Provider Physician Assistant
DX: M54.16 Radiculopathy, lumbar region (principal); M99.63 Osseous and subluxation stenosis of intervertebral foramina of lumbar region; M51.26 Other intervertebral disc displacement, lumbar region
CPT/HCPCS: 72148

== ENCOUNTER 2024-02-01 13:32 | Emergency (ER) | payer MEDICARE, BC, SELFPAY ==
[2024-02-01 14:48] VITALS: BP 172/100; PULSE 67; RESP 17; TEMP 36.5; O2SAT 96; BMI 31.1
--- NOTE | 2024-02-01 15:27 | XRR_ITS ---
PROCEDURE INFORMATION: Exam: XR Chest Exam date and time: 02/01/2024 4:11 PM Age: 63 years old Clinical indication: Injury or trauma; Fall; Blunt trauma (contusions or hematomas) TECHNIQUE: Imaging protocol: Radiologic exam of the chest. Views: 1 view. COMPARISON: CR XR chest 2V* [id number] 04/14/2022 11:44 AM FINDINGS: Lungs: The lungs are clear bilaterally. The pulmonary vasculature is normal. Pleural spaces: No pleural effusion. No pneumothorax. Heart/Mediastinum: The heart is normal in size and contour. Vasculature: Moderate aortic arch atherosclerotic calcification without ectasia. Bones/joints: Lower cervical spinal anterior fixation hardware. Right lateral vertebral body marginal osteophytes are noted at multiple thoracic spinal levels. No acute chest wall abnormality identified impression.. XR/XR chest 1V portable [id number] IMPRESSION: No acute cardiopulmonary abnormality identified.
--- NOTE | 2024-02-01 15:27 | CTR_ITS ---
PROCEDURE INFORMATION: Exam: CT Head Without Contrast Exam date and time: 02/01/2024 3:52 PM Age: 63 years old Clinical indication: Injury or trauma; Fall; Blunt trauma (contusions or hematomas) TECHNIQUE: Imaging protocol: Computed tomography of the head without contrast. Radiation optimization: All CT scans at this facility use at least one of these dose optimization techniques: automated exposure control; mA and/or kV adjustment per patient size (includes targeted exams where dose is matched to clinical indication); or iterative reconstruction. COMPARISON: MR head wo con* [id number] 04/05/2021 9:09 AM RADIATION DOSE METRICS: Total DLP (mGy-cm): 1094.9 FINDINGS: Brain: Mild hypoattenuating foci are noted in the anterior lateral ventricular periventricular white matter bilaterally. No intracranial hemorrhage. No mass or acute cortical infarction identified. Ventricles: Mild prominence of the ventricular system and subarachnoid spaces is consistent with the patient's age of 63 years. Paranasal sinuses: Visualized sinuses are unremarkable. No fluid levels. Mastoid air cells: Visualized mastoid air cells are well aerated. Bones: Unremarkable. No acute fracture. Soft tissues: Unremarkable. CT/CT head wo con* [id number] IMPRESSION: 1. Age appropriate mild supratentorial and infratentorial atrophy. 2. Mild chronic white matter microvascular ischemic disease. 3. No acute intracranial injury identified.
--- NOTE | 2024-02-01 15:27 | CTR_ITS ---
PROCEDURE INFORMATION: Exam: CT Cervical Spine Without Contrast Exam date and time: 02/01/2024 3:52 PM Age: 63 years old Clinical indication: Injury or trauma; Fall; Blunt trauma TECHNIQUE: Imaging protocol: Computed tomography of the cervical spine without contrast. Radiation optimization: All CT scans at this facility use at least one of these dose optimization techniques: automated exposure control; mA and/or kV adjustment per patient size (includes targeted exams where dose is matched to clinical indication); or iterative reconstruction. COMPARISON: MR cervical spin wo con* [id number] 12/06/2022 10:07 AM RADIATION DOSE METRICS: Total DLP (mGy-cm): 1001.9 FINDINGS: Bones: No fracture. No malalignment. No destructive bony process identified. Mild atlantodental osteoarthritis. C4-5 degenerative disc disease with moderate spondylosis. Moderate bilateral C4-C5 neural foraminal narrowing. Mild left C4-C5 primary facet osteoarthritis. An anterior cervical discectomy and fusion has been performed at the C5-C6 level. The intervertebral body graft is fused. The metallic hardware appears intact and in good position. C6-7 degenerative disc disease with moderate spondylosis. Moderately severe right, moderate left C6-C7 neural foraminal narrowing. Moderate right C7-T1 primary facet osteoarthritis. Mild bilateral T1-2 and T2-3 primary facet osteoarthritis. Lungs: Lung apices are normal. Thyroid: Right thyroid 3 mm calcification. No specific follow-up imaging is recommended. Soft tissues: Unremarkable. CT/CT cervical spin wo con* [id number] IMPRESSION: 1. Degenerative changes as above. 2. No acute cervical spinal bony injury identified.
--- NOTE | 2024-02-01 15:28 | ECG_ITS ---
[facility] Test Date: 2024-02-01 Pat Name: Carrie Solis Department: Room: Gender: Female Hand Funnel Coater: : 1960 Requested By: Bernadette Castelan Order Number: [id number] Daryn MD: Daren Nuñez M.D. Measurements Intervals [place] Rate: 64 P: 48 MI: 149 QRS: -7 QRSD: 98 T: 30 QT: 414 QTc: 428 Interpretive Statements SINUS RHYTHM VOLTAGE CRITERIA FOR LVH [MEETS CRITERIA IN ONE OF: R(aVL), S(V1), R(V5), R(V5/V6)+S(V1)] POSSIBLE SEPTAL MYOCARDIAL INFARCTION , OF INDETERMINATE AGE [30 ms Q WAVE IN V1/V2] No previous ECG available for comparison Electronically Signed On 02-02-2024 15:55:37 [employer]END[employer] by Daren Nuñez M.D. [email or web address]
[2024-02-01 15:31] VITALS: BP 209/127; PULSE 74; O2SAT 100
--- NOTE | 2024-02-01 15:35 | ED_ITS ---
Documented by User: Bernadette Castelan MD 02/01/24 17:34 HPI - Head Injury General: Chief complaint: Head Injury Stated complaint: Fall - Face/head laceration/right side and wrist Time Seen by Provider: 02/01/24 15:19 Source: patient Mode of arrival: ambulatory Limitations: no limitations History of Present Illness: 63-year-old female who states she had fe ll off 2 steps onto a concrete floor she did hit her head this happened roughly 2 to 3 hours ago has a laceration above her right eyebrow along with the posterior scalp. She states she did have a loss of consciousness she has some slight rib pain minor denies any other pain Associated symptoms: Deny nausea, neck pain or vomiting Related Data Home Medications Medication Instructions Recorded Confirmed OTC thyroid care 1 tab PO DAILY 04/23/19 12/17/23 magnesium aspartate HCl 61 mg (615 61 mg PO DAILY 04/23/19 12/17/23 mg) tablet,delayed release cholecalciferol (vitamin D3) 50 50 mcg PO DAILY 08/17/20 12/17/23 mcg (2,000 unit) capsule omega-3 fatty acids 1,000 mg 1,000 mg PO DAILY 08/17/20 12/17/23 capsule (Super [place]-3) vitamin E 200 unit capsule 200 unit PO DAILY 08/17/20 12/17/23 zinc 50 mg tablet 50 mg PO DAILY 08/17/20 12/17/23 diltiazem HCl 60 mg tablet 120 mg PO TID 06/08/21 12/17/23 Bioflavonoids, Nuckolls 1 ea PO DAILY 12/09/21 12/17/23 biotin 5 mg tablet 5 mg PO DAILY 12/09/21 12/17/23 lactobacillus combination no.4 3 3,000 mmu cells PO DAILY 12/09/21 12/17/23 billion cell capsule (Probiotic) [id number] 80 mcg-lutein 1 tab PO DAILY 12/09/21 12/17/23 166.7 mcg-herbal 66.7 mg chew tablet (Alive Premium Women's 50 Plus) pantoprazole 40 mg tablet,delayed 40 mg PO BID 12/09/21 12/17/23 release valacyclovir 1 gram tablet 1 mg PO BID 12/09/21 12/17/23 hydrocodone 5 mg-acetaminophen 325 1 tab PO 09/12/22 12/17/23 mg tablet tizanidine 4 mg capsule 4 mg PO BID PRN 09/12/22 12/17/23 Previous Rx's Medication Instructions Recorded ketoconazole 2 % topical cream 1 applic topical BID #60 grams 11/08/21 tizanidine 4 mg tablet 4 mg PO BID PRN muscle spasticity 09/14/22 #60 tabs methocarbamol 750 mg tablet 750 mg PO Q6H PRN spasms #20 tabs 10/27/22 methylprednisolone 4 mg tablets in See Rx Instructions PO PER PKG DIR 11/02/22 a dose pack #21 ea methylprednisolone 4 mg tablets in See Rx Instructions PO PER PKG DIR 04/04/23 a dose pack #21 ea cephalexin 500 mg capsule 500 mg PO BID #6 caps 09/23/23 Allergies Allergy/AdvReac Type Severity Reaction Status Date / Time doxycycline Allergy Intermediate ALGY-Hives Verified 02/01/24 14:53 adhesive Allergy rash Verified 02/01/24 14:53 cefdinir [From Omnicef] Allergy HIVES Verified 02/01/24 14:53 cefixime Allergy HIVES Verified 02/01/24 14:53 clonidine Allergy ADR-Headach Verified 02/01/24 14:53 e escitalopram Allergy Unknown Verified 02/01/24 14:53 latex Allergy Unknown Verified 02/01/24 14:53 levofloxacin [From Levaquin] Allergy Unknown Verified 02/01/24 14:53 lisinopril Allergy ALGY-Difficulty Verified 02/01/24 14:53 Breathing metronidazole Allergy Unknown Verified 02/01/24 14:53 nitrofurantoin Allergy Unknown Verified 02/01/24 14:53 olmesartan [From Benicar] Allergy ALGY-Difficulty Verified 02/01/24 14:53 Breathing paroxetine [From Paxil] Allergy Unknown Verified 02/01/24 14:53 quinapril Allergy ALGY-Difficulty Verified 02/01/24 14:53 Breathing rabeprazole [From AcipHex] Allergy Unknown Verified 02/01/24 14:53 rosuvastatin [From Crestor] Allergy ALGY-Difficulty Verified 02/01/24 14:53 Breathing Sulfa (Sulfonamide Allergy ALGY-Swell Verified 02/01/24 14:53 Antibiotics) Lip/Tongue/Throat baclofen AdvReac RACING Verified 02/01/24 14:53 HEART methadone AdvReac ELEVATED Verified 02/01/24 14:53 BP methylprednisolone AdvReac INCREASED Verified 02/01/24 14:53 [From Solu-Medrol] HEART RATE/ ELEVATED BP naproxen AdvReac GI UPSET Verified 02/01/24 14:53 oxycodone [From OxyContin] AdvReac ELEVATED Verified 02/01/24 14:53 PULSE RATE Penicillins AdvReac THRUSH / Verified 02/01/24 14:53 YEAST INFECTION Review of Systems Const: Denies: fever(s), chills, body aches or change in appetite ENMT: Denies: throat pain or dental pain Card: Reports: chest pain Resp: Denies: dyspnea GI: Denies: abdominal pain, nausea, vomiting or diarrhea Musc: Denies: neck pain or back pain Skin/Breast: Denies: rash Neuro: Reports: headache(s) PFSH ED PFSH: Medical History Myalgia, other site Rheumatoid factor positive Positive BJ (antinuclear antibody) Dental caries Chest pain Mitral valve regurgitation Myalgia Sjogrens syndrome Hypertension Surgical History Hx of arthroscopic knee surgery History of surgery on wrist Hx of carpal tunnel repair Hx of total hysterectomy Hx of neck surgery S/P total knee replacement (~1994) S/P carpal tunnel release (~2014) S/P cholecystectomy (~1981) Family History Mother CAD (coronary artery disease) Cancer Lung disease Stroke Father Myocardial infarction CAD (coronary artery disease) Son Anesthesia complication Family/Other CAD (coronary artery disease) Cancer Lung disease Grandfather Cancer Grandmother Diabetes Denies family history of Clotting disorder Dementia Chronic kidney disease (CKD) Suicide Bleeding disorder Social History Smoking and tobacco/nicotine status: never used tobacco/nicotine Second hand smoke exposure: Yes Alcohol intake: never Substance/Drug Use: never Lives independently: Yes Household members: spouse Physical Exam Const: COMMON NORMALS: no acute distress, patient oriented x3 and healthy appearing HENMT: OTHER: 3 cm laceration above right eyebrow 2 cm laceration to posterior scalp Eye: COMMON NORMALS: Equal, round and reactive pupils present and EOMs intact bilaterally PUPIL: Yes Equal, round and reactive pupils present Neck/C-Spine: COMMON NORMALS: full ROM and supple Chest: COMMONS NORMALS: normal inspection of the chest Resp: COMMON NORMALS: normal respiratory effort Cardio: COMMON NORMALS: regular rate, regular rhythm and No murmurs present (Cardio) RATE: regular rate RHYTHM: regular rhythm Extremity: COMMON NORMALS: normal to inspection and full ROM Neuro: COMMON NORMALS: patient oriented x3, moves all extremities and no focal motor deficits Psych: COMMON NORMALS: mental status grossly normal, Normal thought process present and cooperative THOUGHT PROCESS: Normal thought process present Skin: COMMON NORMALS: no rashes or lesions noted and no wounds GENERAL SKIN EXAM: no rashes or lesions noted Course Vital Signs: Vital signs: Vital Signs Temperature 97.7 F 02/01/24 14:48 Pulse Rate 74 02/01/24 15:31 Respiratory Rate 17 02/01/24 14:48 Blood Pressure 209/127 02/01/24 15:31 Pulse Oximetry 100 02/01/24 15:31 Oxygen Delivery Me thod Room Air 02/01/24 14:48 MDM - Head Injury Medcial Decision Making Patient presents here with a forehead laceration from a fall patient's imaging here is all normal she has no other signs of injuries on imaging here she is stable for discharge follow-up PCP she is have suture removed in 7 days return if worsening she understands agrees to plan Medical Records I reviewed the patient's medical records. Lab Data I reviewed the patient's lab results. Radiology Impressions Cervical Spine CT 02/01/24 15:27 IMPRESSION: 1. Degenerative changes as above. 2. No acute cervical spinal bony injury identified. Chest X-Ray 02/01/24 15:27 IMPRESSION: No acute cardiopulmonary abnormality identified. Head CT 02/01/24 15:27 IMPRESSION: 1. Age appropriate mild supratentorial and infratentorial atrophy. 2. Mild chronic white matter microvascular ischemic disease. 3. No acute intracranial injury identified. All radiology interpretation(s) finalized by discharge EKG Data EKG 1: I personally reviewed and interpreted this EKG as follows: EKG interpretation date: 02/01/24 EKG interpretation time: 15:34 Interpretation: nsr hr [address] or t wave abnormalities qrs 98 qtc 423 Discharge Plan Discharge Patient Disposition: Home Clinical Impression: Laceration of head, Head injury Condition: Stable Prescriptions: No Action OTC thyroid care 1 tab PO DAILY magnesium aspartate HCl 61 mg (615 mg) tablet,delayed release (DR/EC) 61 mg PO DAILY cholecalciferol (vitamin D3) 50 mcg (2,000 unit) capsule 50 mcg PO DAILY zinc 50 mg tablet 50 mg PO DAILY vitamin E 200 unit capsule 200 unit PO DAILY omega-3 fatty acids [Super [place]-3] 1,000 mg capsule 1,000 mg PO DAILY diltiazem HCl 60 mg tablet 120 mg PO TID ketoconazole 2 % cream 1 applic topical BID Qty: 60 3RF Rx Instructions: Apply to affected areas and skin folds x3 weeks. May use as needed for flares. bupivacaine (PF) 0.25 % (2.5 mg/mL) solution 2 ml Infiltration ONCE Qty: 1 0RF methylprednisolone 4 mg tablets,dose pack See Rx Instructions PO PER PKG DIR Qty: 21 0RF Rx Instructions: PO PER PKG DIR methylprednisolone 4 mg tablets,dose pack See Rx Instructions PO PER PKG DIR Qty: 21 0RF Rx Instructions: may elevate heart rate, PO PER PKG DIR cephalexin 500 mg capsule 500 mg PO BID Qty: 6 0RF hydrocodone-acetaminophen 5-325 mg tablet 1 tab PO tizanidine 4 mg capsule 4 mg PO BID PRN tizanidine 4 mg tablet 4 mg PO BID PRN (Reason: muscle spasticity) Qty: 60 0RF biotin 5 mg Tablet 5 mg PO DAILY Bioflavonoids, Nuckolls Powder 1 ea PO DAILY Probiotic 3 billion cell Capsule 3,000 mmu cells PO DAILY Rx Instructions: administer with a meal Alive Premium Women's 50 Plus 80 mcg-166.7 mcg-66.7 mg Tablet,Chewable 1 tab PO DAILY valacyclovir 1 gram tablet 1 mg PO BID pantoprazole 40 mg tablet,delayed release (DR/EC) 40 mg PO BID methocarbamol 750 mg tablet 750 mg PO Q6H PRN (Reason: spasms) Qty: 20 0RF Discharge Orders: Discharge ED (Routine); Ordered 02/01/24 Ordered By: Bernadette Castelan Referrals: Homa Akins PA [Primary Care Provider] - Discharge Diet: Advance as tolerated Discharge Activity: Resume usual activity Patient Instructions: Care For Your Stitches (ED), Head Injury (ED), Head Laceration (ED) Coding Level of Care Code ED [employer] Operator for Harshad Judson Documented by User: YAYA Vásquez 02/01/24 16:48 HPI - Head Injury General: Chief complaint: Head Injury Stated complaint: Fall - Face/head laceration/right side and wrist Time Seen by Provider: 02/01/24 15:19 Related Data Home Medications Medication Instructions Recorded Confirmed OTC thyroid care 1 tab PO DAILY 04/23/19 12/17/23 magnesium aspartate HCl 61 mg (615 61 mg PO DAILY 04/23/19 12/17/23 mg) tablet,delayed release cholecalciferol (vitamin D3) 50 50 mcg PO DAILY 08/17/20 12/17/23 mcg (2,000 unit) capsule omega-3 fatty acids 1,000 mg 1,000 mg PO DAILY 08/17/20 12/17/23 capsule (Super [place]-3) vitamin E 200 unit capsule 200 unit PO DAILY 08/17/20 12/17/23 zinc 50 mg tablet 50 mg PO DAILY 08/17/20 12/17/23 diltiazem HCl 60 mg tablet 120 mg PO TID 06/08/21 12/17/23 Bioflavonoids, Nuckolls 1 ea PO DAILY 12/09/21 12/17/23 biotin 5 mg tablet 5 mg PO DAILY 12/09/21 12/17/23 lactobacillus combination no.4 3 3,000 mmu cells PO DAILY 12/09/21 12/17/23 billion cell capsule (Probiotic) [id number] 80 mcg-lutein 1 tab PO DAILY 12/09/21 12/17/23 166.7 mcg-herbal 66.7 mg chew tablet (Alive Premium Women's 50 Plus) pantoprazole 40 mg tablet,delayed 40 mg PO BID 12/09/21 12/17/23 release valacyclovir 1 gram tablet 1 mg PO BID 12/09/21 12/17/23 hydrocodone 5 mg-acetaminophen 325 1 tab PO 09/12/22 12/17/23 mg tablet tizanidine 4 mg capsule 4 mg PO BID PRN 09/12/22 12/17/23 Previous Rx's Medication Instructions Recorded ketoconazole 2 % topical cream 1 applic topical BID #60 grams 11/08/21 tizanidine 4 mg tablet 4 mg PO BID PRN muscle spasticity 09/14/22 #60 tabs methocarbamol 750 mg tablet 750 mg PO Q6H PRN spasms #20 tabs 10/27/22 methylprednisolone 4 mg tablets in See Rx Instructions PO PER PKG DIR 11/02/22 a dose pack #21 ea methylprednisolone 4 mg tablets in See Rx Instructions PO PER PKG DIR 04/04/23 a dose pack #21 ea cephalexin 500 mg capsule 500 mg PO BID #6 caps 09/23/23 Allergies Allergy/AdvReac Type Severity Reaction Status Date / Time doxycycline Allergy Intermediate ALGY-Hives Verified 02/01/24 14:53 adhesive Allergy rash Verified 02/01/24 14:53 cefdinir [From Omnicef] Allergy HIVES Verified 02/01/24 14:53 cefixime Allergy HIVES Verified 02/01/24 14:53 clonidine Allergy ADR-Headach Verified 02/01/24 14:53 e escitalopram Allergy Unknown Verified 02/01/24 14:53 latex Allergy Unknown Verified 02/01/24 14:53 levofloxacin [From Levaquin] Allergy Unknown Verified 02/01/24 14:53 lisinopril Allergy ALGY-Difficulty Verified 02/01/24 14:53 Breathing metronidazole Allergy Unknown Verified 02/01/24 14:53 nitrofurantoin Allergy Unknown Verified 02/01/24 14:53 olmesartan [From Benicar] Allergy ALGY-Difficulty Verified 02/01/24 14:53 Breathing paroxetine [From Paxil] Allergy Unknown Verified 02/01/24 14:53 quinapril Allergy ALGY-Difficulty Verified 02/01/24 14:53 Breathing rabeprazole [From AcipHex] Allergy Unknown Verified 02/01/24 14:53 rosuvastatin [From Crestor] Allergy ALGY-Difficulty Verified 02/01/24 14:53 Breathing Sulfa (Sulfonamide Allergy ALGY-Swell Verified 02/01/24 14:53 Antibiotics) Lip/Tongue/Throat baclofen AdvReac RACING Verified 02/01/24 14:53 HEART methadone AdvReac ELEVATED Verified 02/01/24 14:53 BP methylprednisolone AdvReac INCREASED Verified 02/01/24 14:53 [From Solu-Medrol] HEART RATE/ ELEVATED BP naproxen AdvReac GI UPSET Verified 02/01/24 14:53 oxycodone [From OxyContin] AdvReac ELEVATED Verified 02/01/24 14:53 PULSE RATE Penicillins AdvReac THRUSH / Verified 02/01/24 14:53 YEAST INFECTION PFS ED PFSH: Medical History Myalgia, other site Rheumatoid factor positive Positive BJ (antinuclear antibody) Dental caries Chest pain Mitral valve regurgitation Myalgia Sjogrens syndrome Hypertension Surgical History Hx of arthroscopic knee surgery History of surgery on wrist Hx of carpal tunnel repair Hx of total hysterectomy Hx of neck surgery S/P total knee replacement (~1994) S/P carpal tunnel release (~2014) S/P cholecystectomy (~1981) Family History Mother CAD (coronary artery disease) Cancer Lung disease Stroke Father Myocardial infarction CAD (coronary artery disease) Son Anesthesia complication Family/Other CAD (coronary artery disease) Cancer Lung disease Grandfather Cancer Grandmother Diabetes Denies family history of Clotting disorder Dementia Chronic kidney disease (CKD) Suicide Bleeding disorder Social History Smoking and tobacco/nicotine status: never used tobacco/nicotine Second hand smoke exposure: Yes Alcohol intake: never Substance/Drug Use: never Lives independently: Yes Household members: spouse Procedures Laceration Laceration 1: Site: face Side (If applicable): right Size (cm): 3.0 Description: irregular Depth: simple, single layer Local Anesthetic: lidocaine 1% and with epi Amount of anesthesia used (mL): 2.0 Pre-repair: wound explored and irrigated extensively Skin layer closed with: nylon Size (cm): 5-0 Number of sutures: 5 Technique: simple, interrupted Course ED course: Was consulted by Dr. Castelan to repair patient's right superior orbital l aceration. This was completed as documented. Other than laceration repair, I did not actively participate in any portion of patient's care. ES Vital Signs: Vital signs: Vital Signs Temperature 97.7 F 02/01/24 14:48 Pulse Rate 74 02/01/24 15:31 Respiratory Rate 17 02/01/24 14:48 Blood Pressure 209/127 02/01/24 15:31 Pulse Oximetry 100 02/01/24 15:31 Oxygen Delivery Me thod Room Air 02/01/24 14:48 MDM - Head Injury Lab Data Radiology Impressions Cervical Spine CT 02/01/24 15:27 IMPRESSION: 1. Degenerative changes as above. 2. No acute cervical spinal bony injury identified. Chest X-Ray 02/01/24 15:27 IMPRESSION: No acute cardiopulmonary abnormality identified. Head CT 02/01/24 15:27 IMPRESSION: 1. Age appropriate mild supratentorial and infratentorial atrophy. 2. Mild chronic white matter microvascular ischemic disease. 3. No acute intracranial injury identified. Discharge Plan Discharge Patient Disposition: Home Clinical Impression: Laceration of head, Head injury Condition: Stable Prescriptions: No Action OTC thyroid care 1 tab PO DAILY magnesium aspartate HCl 61 mg (615 mg) tablet,delayed release (DR/EC) 61 mg PO DAILY cholecalciferol (vitamin D3) 50 mcg (2,000 unit) capsule 50 mcg PO DAILY zinc 50 mg tablet 50 mg PO DAILY vitamin E 200 unit capsule 200 unit PO DAILY omega-3 fatty acids [Super [place]-3] 1,000 mg capsule 1,000 mg PO DAILY diltiazem HCl 60 mg tablet 120 mg PO TID ketoconazole 2 % cream 1 applic topical BID Qty: 60 3RF Rx Instructions: Apply to affected areas and skin folds x3 weeks. May use as needed for flares. bupivacaine (PF) 0.25 % (2.5 mg/mL) solution 2 ml Infiltration ONCE Qty: 1 0RF methylprednisolone 4 mg tablets,dose pack See Rx Instructions PO PER PKG DIR Qty: 21 0RF Rx Instructions: PO PER PKG DIR methylprednisolone 4 mg tablets,dose pack See Rx Instructions PO PER PKG DIR Qty: 21 0RF Rx Instructions: may elevate heart rate, PO PER PKG DIR cephalexin 500 mg capsule 500 mg PO BID Qty: 6 0RF hydrocodone-acetaminophen 5-325 mg tablet 1 tab PO tizanidine 4 mg capsule 4 mg PO BID PRN tizanidine 4 mg tablet 4 mg PO BID PRN (Reason: muscle spasticity) Qty: 60 0RF biotin 5 mg Tablet 5 mg PO DAILY Bioflavonoids, Nuckolls Powder 1 ea PO DAILY Probiotic 3 billion cell Capsule 3,000 mmu cells PO DAILY Rx Instructions: administer with a meal Alive Premium Women's 50 Plus 80 mcg-166.7 mcg-66.7 mg Tablet,Chewable 1 tab PO DAILY valacyclovir 1 gram tablet 1 mg PO BID pantoprazole 40 mg tablet,delayed release (DR/EC) 40 mg PO BID methocarbamol 750 mg tablet 750 mg PO Q6H PRN (Reason: spasms) Qty: 20 0RF Discharge Orders: Discharge ED (Routine); Ordered 02/01/24 Ordered By: Bernadette Castelan Referrals: Homa Akins PA [Primary Care Provider] - Discharge Diet: Advance as tolerated Discharge Activity: Resume usual activity Patient Instructions: Care For Your Stitches (ED), Head Injury (ED), Head Laceration (ED) Coding Level of Care Code ED [employer] Operator for Harshad Roper
[2024-02-01] MEDS: dilTIAZem 60 mg Tablet 90 MG PO (15:51)
== END 2024-02-01 20:42 | disposition home or self-care (01) ==
PROVIDERS: Emergency Provider Emergency Medicine; PCP Physician Assistant
DX: S01.81XA Laceration without foreign body of other part of head, initial encounter (principal); S09.8XXA Other specified injuries of head, initial encounter; W10.9XXA Fall (on) (from) unspecified stairs and steps, initial encounter; I10 Essential (primary) hypertension
CPT/HCPCS: 70450; 71045; 72125; 93005; 99284

== ENCOUNTER 2024-02-18 13:52 | Outpatient (CLI) | payer MEDICARE, BC, SELFPAY ==
--- NOTE | 2024-02-18 13:56 | MR_ITS ---
WS: [id number] MRI LUMBAR SPINE NONCONTRAST HISTORY: LUMBAR RADICULOPATHY, fall since last MRI of 12/24/2023 COMPARISON: 07/15/2021, 12/24/2023 TECHNIQUE: Sagittal and axial multisequence imaging is submitted. 2 mm retrolisthesis of L1, L2 and L3. No marrow edema or fracture. Disc spaces are narrowed and desiccated throughout the lumbar spine. Conus terminates normally at L1-2 disc level. L1-L2: Bilateral paracentral disc protrusions encroaching upon the ventral thecal sac, RIGHT greater than LEFT. Similar to the prior study. No stenosis. L2-L3: Diffuse annular disc bulging. Mild encroachment upon the subarticular recesses. Mild central s tenosis with ligamentum flavum and facet arthritis. L3-L4: Moderate annular disc bulging with a central disc protrusion. Marked ligamentum flavum hypertr ophy and facet arthritis. Central disc protrusion has increased in size. Increasing central and bilat eral subarticular recess stenosis. Bilateral foraminal stenosis, LEFT greater than RIGHT. There is sl ight disc contact on the exiting LEFT L3 nerve root. L4-L5: Diffuse annular disc bulging contacting the subarticular recesses and traversing nerve roots. Marked ligamentum flavum and facet arthritis. Moderate central with bilateral subarticular recess and foraminal stenosis. No progression. L5-S1: Mild disc bulging with minimal encroachment upon the LEFT S1 traversing nerve root. No foramin al stenosis. Paravertebral soft tissues are normal. MR/MR lumbar spine wo con* [id number] IMPRESSION: 1. No acute lumbar spine fracture. 2. L3-4: Annular disc bulge with a central disc protrusion. Central disc protr usion has increased in size. Increasing central and bilateral subarticular rece ss stenosis. Bilateral foraminal stenosis, LEFT greater than RIGHT. 3. L4-5: Moderate central with bilateral subarticular recess and foraminal aubrie nosis. No progression. 4. L5-S1: Very minimal encroachment upon the LEFT S1 nerve root. 5. L1-2: Small bilateral paracentral disc protrusions at L1-2. 6. L2-3: Mild central stenosis.
== END 2024-02-18 13:53 | disposition home or self-care (01) ==
LOC: RAD 13:53
PROVIDERS: PCP Physician Assistant; Visit Provider Physician Assistant
DX: M54.16 Radiculopathy, lumbar region (principal); M51.26 Other intervertebral disc displacement, lumbar region; M99.63 Osseous and subluxation stenosis of intervertebral foramina of lumbar region; M47.896 Other spondylosis, lumbar region
CPT/HCPCS: 72148

== ENCOUNTER 2024-02-24 20:49 | Emergency (ER) | payer MEDICARE, BC, SELFPAY ==
--- NOTE | 2024-02-24 20:50 | XRR_ITS ---
PROCEDURE INFORMATION: Exam: XR Left Foot Exam date and time: 02/24/2024 9:43 PM Age: 63 years old Clinical indication: Patient HX: Pain to top of left foot/ankle after fall TECHNIQUE: Imaging protocol: Radiologic exam of the left foot. Views: 3 or more views. COMPARISON: [place] [id number] ORTH 06/07/2022 11:06 AM FINDINGS: Bones/joints: No evidence of acute fracture or subluxation. Tarsometatarsal alignment is maintained. Mild hallux valgus and degeneration of the 1st MTP joint. Soft tissues: Mild dorsal soft tissue edema. XR/XR foot LT min 3V* [id number] IMPRESSION: 1. No evidence of acute fracture or subluxation.
--- NOTE | 2024-02-24 20:50 | XRR_ITS ---
PROCEDURE INFORMATION: Exam: XR Left Ankle Exam date and time: 02/24/2024 9:43 PM Age: 63 years old Clinical indication: Patient HX: Pain to top of left foot/ankle after fall TECHNIQUE: Imaging protocol: Radiologic exam of the left ankle. Views: 3 or more views. COMPARISON: CR XR foot LT min 3V* [id number] 02/24/2024 9:43 PM FINDINGS: Bones/joints: Ankle mortise is intact without evidence of acute fracture or subluxation. Soft tissues: No gross soft tissue abnormality. XR/XR ankle LT min 3V* [id number] IMPRESSION: 1. No evidence of acute fracture or subluxation.
[2024-02-24 21:03] VITALS: BP 199/75; PULSE 73; RESP 18; TEMP 36.7; O2SAT 95; BMI 31.5
--- NOTE | 2024-02-24 21:20 | ED_ITS ---
HPI - Fall General: Chief Complaint: Fall Stated Complaint: Fell Top Of Left Foot Pain Time Seen by Provider: 02/24/24 20:51 Source: patient Mode of arrival: ambulatory Limitations: no limitations History of Present Illness: 63-year-old female states that she is wa lking down steps and the rope broke and she had fell. She states she twisted her left foot and had left foot pain since then pain is in the middle of her foot on the dorsum of the foot states this happened just prior to arrival. Denies any knee or ankle pain denies hitting her head states it hurts to ambulate on that foot. Associated symptoms-after fall: Denies abdominal pain, chest pain, headache(s) or neck pain Related Data Home Medications Medication Instructions Recorded Confirmed OTC thyroid care 1 tab PO DAILY 04/23/19 12/17/23 magnesium aspartate HCl 61 mg (615 61 mg PO DAILY 04/23/19 12/17/23 mg) tablet,delayed release cholecalciferol (vitamin D3) 50 50 mcg PO DAILY 08/17/20 12/17/23 mcg (2,000 unit) capsule omega-3 fatty acids 1,000 mg 1,000 mg PO DAILY 08/17/20 12/17/23 capsule (Super [place]-3) vitamin E 200 unit capsule 200 unit PO DAILY 08/17/20 12/17/23 zinc 50 mg tablet 50 mg PO DAILY 08/17/20 12/17/23 diltiazem HCl 60 mg tablet 120 mg PO TID 06/08/21 12/17/23 Bioflavonoids, Morris 1 ea PO DAILY 12/09/21 12/17/23 biotin 5 mg tablet 5 mg PO DAILY 12/09/21 12/17/23 lactobacillus combination no.4 3 3,000 mmu cells PO DAILY 12/09/21 12/17/23 billion cell capsule (Probiotic) [id number] 80 mcg-lutein 1 tab PO DAILY 12/09/21 12/17/23 166.7 mcg-herbal 66.7 mg chew tablet (Alive Premium Women's 50 Plus) pantoprazole 40 mg tablet,delayed 40 mg PO BID 12/09/21 12/17/23 release valacyclovir 1 gram tablet 1 mg PO BID 12/09/21 12/17/23 hydrocodone 5 mg-acetaminophen 325 1 tab PO 09/12/22 12/17/23 mg tablet tizanidine 4 mg capsule 4 mg PO BID PRN 09/12/22 12/17/23 Previous Rx's Medication Instructions Recorded ketoconazole 2 % topical cream 1 applic topical BID #60 grams 11/08/21 tizanidine 4 mg tablet 4 mg PO BID PRN muscle spasticity 09/14/22 #60 tabs methocarbamol 750 mg tablet 750 mg PO Q6H PRN spasms #20 tabs 10/27/22 methylprednisolone 4 mg tablets in See Rx Instructions PO PER PKG DIR 11/02/22 a dose pack #21 ea methylprednisolone 4 mg tablets in See Rx Instructions PO PER PKG DIR 04/04/23 a dose pack #21 ea cephalexin 500 mg capsule 500 mg PO BID #6 caps 09/23/23 Allergies Allergy/AdvReac Type Severity Reaction Status Date / Time doxycycline Allergy Intermediate ALGY-Hives Verified 02/01/24 14:53 adhesive Allergy rash Verified 02/01/24 14:53 cefdinir [From Omnicef] Allergy HIVES Verified 02/01/24 14:53 cefixime Allergy HIVES Verified 02/01/24 14:53 clonidine Allergy ADR-Headach Verified 02/01/24 14:53 e escitalopram Allergy Unknown Verified 02/01/24 14:53 latex Allergy Unknown Verified 02/01/24 14:53 levofloxacin [From Levaquin] Allergy Unknown Verified 02/01/24 14:53 lisinopril Allergy ALGY-Difficulty Verified 02/01/24 14:53 Breathing metronidazole Allergy Unknown Verified 02/01/24 14:53 nitrofurantoin Allergy Unknown Verified 02/01/24 14:53 olmesartan [From Benicar] Allergy ALGY-Difficulty Verified 02/01/24 14:53 Breathing paroxetine [From Paxil] Allergy Unknown Verified 02/01/24 14:53 quinapril Allergy ALGY-Difficulty Verified 02/01/24 14:53 Breathing rabeprazole [From AcipHex] Allergy Unknown Verified 02/01/24 14:53 rosuvastatin [From Crestor] Allergy ALGY-Difficulty Verified 02/01/24 14:53 Breathing Sulfa (Sulfonamide Allergy ALGY-Swell Verified 02/01/24 14:53 Antibiotics) Lip/Tongue/Throat baclofen AdvReac RACING Verified 02/01/24 14:53 HEART methadone AdvReac ELEVATED Verified 02/01/24 14:53 BP methylprednisolone AdvReac INCREASED Verified 02/01/24 14:53 [From Solu-Medrol] HEART RATE/ ELEVATED BP naproxen AdvReac GI UPSET Verified 02/01/24 14:53 oxycodone [From OxyContin] AdvReac ELEVATED Verified 02/01/24 14:53 PULSE RATE Penicillins AdvReac THRUSH / Verified 02/01/24 14:53 YEAST INFECTION Review of Systems Const: Denies: fever(s), chills, body aches or change in appetite ENMT: Denies: throat pain or dental pain Card: Denies: chest pain Resp: Denies: dyspnea GI: Denies: abdominal pain, nausea, vomiting or diarrhea Musc: Reports: extremity pain; Denies: neck pain or back pain Skin/Breast: Denies: rash Neuro: Denies: headache(s) PFSH ED PFSH: Medical History Myalgia, other site Rheumatoid factor positive Positive BJ (antinuclear antibody) Dental caries Chest pain Mitral valve regurgitation Myalgia Sjogrens syndrome Hypertension Surgical History Hx of arthroscopic knee surgery History of surgery on wrist Hx of carpal tunnel repair Hx of total hysterectomy Hx of neck surgery S/P total knee replacement (~1994) S/P carpal tunnel release (~2014) S/P cholecystectomy (~1981) Family History Mother CAD (coronary artery disease) Cancer Lung disease Stroke Father Myocardial infarction CAD (coronary artery disease) Son Anesthesia complication Family/Other CAD (coronary artery disease) Cancer Lung disease Grandfather Cancer Grandmother Diabetes Denies family history of Clotting disorder Dementia Chronic kidney disease (CKD) Suicide Bleeding disorder Social History Smoking and tobacco/nicotine status: never used tobacco/nicotine Second hand smoke exposure: Yes Alcohol intake: never Substance/Drug Use: never Lives independently: Yes Household members: spouse Physical Exam Const: COMMON NORMALS: no acute distress, patient oriented x3 and healthy appearing HENMT: COMMON NORMALS: normocephalic and atraumatic HEAD & SCALP: normocephalic and atraumatic Eye: COMMON NORMALS: conjunctivae normal CONJUNCTIVA: Yes conjunctivae normal Neck/C-Spine: COMMON NORMALS: full ROM and supple Chest: COMMONS NORMALS: normal inspection of the chest Resp: COMMON NORMALS: normal respiratory effort Cardio: COMMON NORMALS: regular rate RATE: regular rate Extremity: COMMON NORMALS: full ROM NARRATIVE EXTREMITY EXAM: Tenderness over the dorsum of the midfoot no tenderness over Achilles no ankle tenderness noted Neuro: COMMON NORMALS: patient oriented x3, moves all extremities and no focal motor deficits Psych: COMMON NORMALS: mental status grossly normal, Normal thought process present and cooperative THOUGHT PROCESS: Normal thought process present Skin: COMMON NORMALS: no rashes or lesions noted and no wounds GENERAL SKIN EXAM: no rashes or lesions noted Course Vital Signs: Vital signs: Vital Signs Temperature 98.0 F 02/24/24 21:03 Pulse Rate 73 02/24/24 21:03 Respiratory Rate 18 02/24/24 21:03 Blood Pressure 199/75 02/24/24 21:03 Pulse Oximetry 95 02/24/24 21:03 Oxygen Delivery Me thod Room Air 02/24/24 21:03 MDM - Fall Medical Decision Making Patient presents here with left foot sprain x-ray here shows no fractures will place an Ortho shoe will get a follow-up with podiatry she is to return if worsening she understands agrees to plan. Medical Records I reviewed the patient's medical records. XR interpretation done by ED provider, pending radiology final review ED provider radiology interpretation(s): xr L foot and ankle: no acute fx Discharge Plan Discharge Patient Disposition: Home Clinical Impression: Sprain of foot, left Qualifiers: Encounter type: initial encounter Qualified Code(s): S93.602A - Unspecified sprain of left foot, initial encounter Condition: Stable Prescriptions: No Action OTC thyroid care 1 tab PO DAILY magnesium aspartate HCl 61 mg (615 mg) tablet,delayed release (DR/EC) 61 mg PO DAILY cholecalciferol (vitamin D3) 50 mcg (2,000 unit) capsule 50 mcg PO DAILY zinc 50 mg tablet 50 mg PO DAILY vitamin E 200 unit capsule 200 unit PO DAILY omega-3 fatty acids [Super [place]-3] 1,000 mg capsule 1,000 mg PO DAILY diltiazem HCl 60 mg tablet 120 mg PO TID ketoconazole 2 % cream 1 applic topical BID Qty: 60 3RF Rx Instructions: Apply to affected areas and skin folds x3 weeks. May use as needed for flares. bupivacaine (PF) 0.25 % (2.5 mg/mL) solution 2 ml Infiltration ONCE Qty: 1 0RF methylprednisolone 4 mg tablets,dose pack See Rx Instructions PO PER PKG DIR Qty: 21 0RF Rx Instructions: PO PER PKG DIR methylprednisolone 4 mg tablets,dose pack See Rx Instructions PO PER PKG DIR Qty: 21 0RF Rx Instructions: may elevate heart rate, PO PER PKG DIR cephalexin 500 mg capsule 500 mg PO BID Qty: 6 0RF hydrocodone-acetaminophen 5-325 mg tablet 1 tab PO tizanidine 4 mg capsule 4 mg PO BID PRN tizanidine 4 mg tablet 4 mg PO BID PRN (Reason: muscle spasticity) Qty: 60 0RF biotin 5 mg Tablet 5 mg PO DAILY Bioflavonoids, Morris Powder 1 ea PO DAILY Probiotic 3 billion cell Capsule 3,000 mmu cells PO DAILY Rx Instructions: administer with a meal Alive Premium Women's 50 Plus 80 mcg-166.7 mcg-66.7 mg Tablet,Chewable 1 tab PO DAILY valacyclovir 1 gram tablet 1 mg PO BID pantoprazole 40 mg tablet,delayed release (DR/EC) 40 mg PO BID methocarbamol 750 mg tablet 750 mg PO Q6H PRN (Reason: spasms) Qty: 20 0RF Discharge Orders: Discharge ED (Routine); Ordered 02/24/24 Ordered By: Bernadette Castelan Referrals: Casey Torres DPM [Physician] - 4-7 days Homa Akins PA [Primary Care Provider] - Discharge Diet: Advance as tolerated Discharge Activity: Resume usual activity Patient Instructions: Foot Sprain (ED) Coding Level of Care Code ED [employer] for Harshad Roper
[2024-02-24] MEDS: HYDROcodone-acetaminophen 5-325 mg Tablet 1 TAB PO (22:02)
[2024-02-24 22:45] VITALS: BP 134/86; PULSE 68; O2SAT 99
--- NOTE | 2024-02-25 10:47 | DCPLANNER ---
messaged podiatry for er f/u
== END 2024-02-24 22:46 | disposition home or self-care (01) ==
PROVIDERS: Emergency Provider Emergency Medicine; PCP Physician Assistant
DX: S93.602A Unspecified sprain of left foot, initial encounter (principal); W19.XXXA Unspecified fall, initial encounter; I10 Essential (primary) hypertension
CPT/HCPCS: 73610; 73630; 99283

== ENCOUNTER → 2024-02-27 11:11 | Outpatient (BNVA) | payer MEDICARE, BC, SELFPAY | PROVIDERS: PCP Physician Assistant; Visit Provider Podiatrist Foot & Ankle Surgery | DX: S93.602A Unspecified sprain of left foot, initial encounter (principal); X58.XXXA Exposure to other specified factors, initial encounter; M21.612 Bunion of left foot; M21.611 Bunion of right foot; M79.672 Pain in left foot; M79.671 Pain in right foot | CPT/HCPCS: 73630 ==

== ENCOUNTER 2024-02-27 14:12 | Outpatient (CLI) | payer MEDICARE, BC, SELFPAY | END 2024-02-27 14:13 | disposition home or self-care (01) | LOC: SPT 14:13 | PROVIDERS: PCP Physician Assistant; Visit Provider Podiatrist Foot & Ankle Surgery | DX: Z46.89 Encounter for fitting and adjustment of other specified devices (principal); S93.602D Unspecified sprain of left foot, subsequent encounter; X58.XXXD Exposure to other specified factors, subsequent encounter | CPT/HCPCS: 97760; L4361 ==

== ENCOUNTER → 2024-03-18 10:34 | Outpatient (BNVA) | payer MEDICARE, BC, SELFPAY | PROVIDERS: PCP Physician Assistant; Visit Provider Podiatrist Foot & Ankle Surgery | DX: M79.672 Pain in left foot (principal); M84.375A Stress fracture, left foot, initial encounter for fracture; S93.622A Sprain of tarsometatarsal ligament of left foot, initial encounter; X58.XXXA Exposure to other specified factors, initial encounter | CPT/HCPCS: 73630; 99213 ==

== ENCOUNTER 2024-03-25 11:26 | Outpatient (CLI) | payer MEDICARE, BC, SELFPAY ==
--- NOTE | 2024-03-25 11:45 | MR_ITS ---
WS: [id number] EXAMINATION: MR foot LT wo con* [id number] ORDER DATE: 03/25/2024 11:38 AM COMPARISON: None. HISTORY: left foot stress fracture CONTRAST: None. TECHNIQUE: Sagittal T1, sagittal STIR, coronal PD, coronal T2, axial T1, axial T2, and axial PD imagi ng with fat saturation technique. FINDINGS: Hallux valgus. Bunion deformity. Palpable marker overlying the second cuneiform. No visualized fractures in the second cuneiform. Smal l amount of fluid and edema in the surrounding intertarsal and TMT joints. Findings are likely inflam matory or stress-related given clinical history. Small amount of edema in the adjacent first second a nd third and fourth metatarsal bases. Small amount of edema in the first and third cuneiforms. Small amount of edema in the cuneiform. Normal navicular. No drainable fluid collections or abscess. MR/MR foot LT wo con* [id number] IMPRESSION: 1. No fractures deep to the palpable marker. 2. Mild fluid and edema in the surrounding intertarsal and TMT joints likely i nflammatory or stress-related given clinical history. 3. No fluid collection or abscess 4. Hallux valgus with bunion deformity
== END 2024-03-25 11:27 | disposition home or self-care (01) ==
LOC: RAD 11:28
PROVIDERS: PCP Physician Assistant; Visit Provider Podiatrist Foot & Ankle Surgery
DX: M84.375A Stress fracture, left foot, initial encounter for fracture (principal); M20.12 Hallux valgus (acquired), left foot; M21.612 Bunion of left foot; R93.6 Abnormal findings on diagnostic imaging of limbs
CPT/HCPCS: 73718

== ENCOUNTER 2024-04-21 13:33 | Outpatient (CLI) | payer MEDICARE, BC, SELFPAY ==
--- NOTE | 2024-04-21 13:40 | MM_ITS ---
WS: [id number] BILATERAL 3D TOMOSYNTHESIS DIGITAL SCREENING MAMMOGRAPHY WITH CAD CLINICAL INFORMATION: SCREENING HISTORY: Screening mammogram. No current complaints. COMPARISON: 2022 TECHNIQUE: Bilateral CC and MLO views. FINDINGS: Scattered fibroglandular densities bilaterally. No suspicious focal mass, asymmetry, calcifications, or architectural distortion. No evidence of malignancy. MM/MM scr BI tomosynthesis [id number] IMPRESSION: DENSITY: There are scattered areas of fibroglandular density. BI-RADS: 2 - Benign. FOLLOW UP: 1 Year Follow-up Recommend return to annual screening mammography.
== END 2024-04-21 13:34 | disposition home or self-care (01) ==
PROVIDERS: PCP Physician Assistant; Visit Provider Physician Assistant
DX: Z12.31 Encounter for screening mammogram for malignant neoplasm of breast (principal); R92.323 Mammographic fibroglandular density, bilateral breasts
CPT/HCPCS: 77063; 77067

== ENCOUNTER 2024-06-03 13:53 | Outpatient (CLI) | payer MEDICARE, BC, SELFPAY ==
--- NOTE | 2024-06-03 14:16 | MR_ITS ---
WS: [id number] EXAMINATION: MR hip RT wo con* [id number] ORDER DATE: 06/03/2024 2:24 PM COMPARISON: None. HISTORY: RIGHT HIP JOINT PAIN CONTRAST: None. TECHNIQUE: Coronal STIR of the Pelvis. Coronal proton density, coronal T1, axial T2 fat sat, axial T1, sagittal T2 fat sat, and sagittal T1 performed of the hip. FINDINGS: Osteoporosis. Normal bone marrow signal in the bony pelvis and sacrum. No acute appearing sacral insufficiency fractures. Moderate to advanced arthritis sacroiliac joints. No inguinal lymphadenopathy. Sigmoid diverticulosis. Moderate to advanced degenerative arthritis bilateral hips. No evidence of avascular necrosis or acute fracture. Mild hypertrophic changes about the RIGHT femoral head and acetabulum. Tiny amount of subchondral degenerative edema along the RIGHT femoral neck. Proximal femurs are normal in appearance. MR/MR hip RT wo con* [id number] IMPRESSION: 1. Moderate to advanced arthritis RIGHT hip. No acute fractures. 2. No evidence of avascular necrosis. Tiny amount of subchondral degenerative edema along the medial femoral neck. 3. Normal bone marrow signal in the bony pelvis and sacrum. 4. Moderate to advanced degenerative arthritis sacroiliac joints. 5. Osteoporosis. 6. No other acute findings.
== END 2024-06-03 13:54 | disposition home or self-care (01) ==
LOC: RAD 13:58
PROVIDERS: PCP Physician Assistant; Visit Provider Physician Assistant
DX: M25.551 Pain in right hip (principal); M46.1 Sacroiliitis, not elsewhere classified; M81.0 Age-related osteoporosis without current pathological fracture; K57.30 Diverticulosis of large intestine without perforation or abscess without bleeding; M16.0 Bilateral primary osteoarthritis of hip; R93.7 Abnormal findings on diagnostic imaging of other parts of musculoskeletal system
CPT/HCPCS: 73721

== ENCOUNTER → 2024-06-11 14:03 | Outpatient (BNVA) | payer MEDICARE, BC, SELFPAY | PROVIDERS: PCP Physician Assistant; Visit Provider Nurse Practitioner | DX: S82.122A Displaced fracture of lateral condyle of left tibia, initial encounter for closed fracture (principal); X58.XXXA Exposure to other specified factors, initial encounter; Z46.89 Encounter for fitting and adjustment of other specified devices | CPT/HCPCS: 73562 ==

== ENCOUNTER 2024-06-11 15:50 | Outpatient (CLI) | payer MEDICARE, BC, SELFPAY | END 2024-06-11 15:51 | disposition home or self-care (01) | LOC: SPT 15:50 | PROVIDERS: PCP Physician Assistant; Visit Provider Nurse Practitioner | DX: Z46.89 Encounter for fitting and adjustment of other specified devices (principal); M25.561 Pain in right knee | CPT/HCPCS: 97760; L1832 ==

== ENCOUNTER 2024-06-30 14:42 | Outpatient (CLI) | payer MEDICARE, BC, SELFPAY ==
--- NOTE | 2024-06-30 14:48 | CT_ITS ---
WS: [id number] CT CHEST, ABDOMEN AND PELVIS WITH CONTRAST HISTORY: DYSPNEA/NONALCOHOLIC STEATHOHEPATITIS TECHNIQUE: Contiguous 5 mm axial imaging performed through the chest, abdomen and pelvis with IV contrast, oral contrast has been provided. Coronal and sagittal reformats chest. Coronal and sagittal reformats through the abdomen and pelvis. All CT scans at [facility] use at least one of these dose optimization techniques: automated exposure control; mA and/or kV adjustment per patient size (includes targeted exams where dose is matched to clinical indication); or iterative reconstruction. CONTRAST: Omnipaque 350; 100 mL IV. DLP: 964.29 mGy.cm COMPARISON: 11/06/2023, 09/14/2020, 03/11/[address]: Long-term stability pleural nodule measuring 5.6 mm posterior superior segment RIGHT lower lobe. Lungs are clear. No pneumonia. Normal size heart. No pericardial or pleural effusions. No pathological lymph nodes. Very mild atherosclerosis aorta. Small axillary lymph nodes. Small hiatal hernia. Abdomen CT: Normal size liver. Mild diffuse decreased attenuation throughout the liver. Long-term stability 8 x 11 mm low-attenuation nodule lateral segment LEFT lobe of the liver. No intrahepatic duct dilatation. Normal portal vein. Prior cholecystectomy. Normal spleen and pancreas. Normal adrenal glands. No renal obstruction. No change 6 mm cyst lower pole RIGHT kidney. Very mild atherosclerosis aorta. Nondistended stomach. No small bowel obstruction. No colon obstruction. No ascites or adenopathy. Pelvic CT: Prior hysterectomy. RIGHT ovary may still be present. Ovaries small caliber. No free fluid or adenopathy. Urinary bladder is negative. No destructive bone lesions. CT/CT chest abdpel w/*[id number] IMPRESSION: 1. Normal size liver with mild hepatic steatosis. 2. Long-term stability 8 x 11 mm nodule lateral segment LEFT lobe of the liver . 3. Long-term stability 5.6 mm pleural nodule superior segment RIGHT lower lobe . 4. Prior cholecystectomy. 5. Prior hysterectomy. 6. No GI tract obstruction. 7. Small hiatal hernia with a small amount of refluxed contrast in the distal esophagus versus incomplete emptying.
--- NOTE | 2024-06-30 15:00 | CT_ITS ---
WS: [id number] CT RIGHT KNEE HISTORY: tibial plateau fracture Technique: All CT scans at [facility] use at least one of these dose optimization techniques: automated exposure control; mA and/or kV adjustment per patient size (includes targeted exams where dose is matched to clinical indication); or iterative reconstruction. DLP: 450.92 mGy.cm COMPARISON: Radiograph 06/05/2024, 06/11/2024 Partially healed fracture involving the lateral tibial plateau. Fractures along the posterior tibial plateau and it does extend to the tibial plateau surface without depression. Fracture line is still evident measuring less than 2 mm in diameter. No intra-articular bodies. There is an osteophyte extending into the joint space from anterior mid tibial plateau. No additional fractures. Mild tricompartment joint space narrowing. No significant joint effusion. There is soft tissue edema anterior to the patella and patellar tendon. CT/CT knee RT wo con* [id number] IMPRESSION: 1. Partially healed nondisplaced fracture posterior lateral tibial plateau. 2. Hypertrophic osteophyte from the anterior mid tibial plateau extends into t he joint space.
[2024-06-30] MEDS: iohexol 350 mg/mL 500 mL Btl (per mL) PO (15:51)
[2024-06-30] MEDS: iohexol 350 mg/mL 500 mL Btl (per mL) IV (15:52)
== END 2024-06-30 14:43 | disposition home or self-care (01) ==
LOC: RAD 14:44
PROVIDERS: PCP Physician Assistant; Visit Provider Nurse Practitioner
DX: R06.00 Dyspnea, unspecified (principal); K75.81 Nonalcoholic steatohepatitis (NASH); K76.89 Other specified diseases of liver; J94.8 Other specified pleural conditions; Z90.49 Acquired absence of other specified parts of digestive tract; Z90.710 Acquired absence of both cervix and uterus; K44.9 Diaphragmatic hernia without obstruction or gangrene; I70.0 Atherosclerosis of aorta; R59.0 Localized enlarged lymph nodes; N28.1 Cyst of kidney, acquired
CPT/HCPCS: 71260; 73700; 74177

== ENCOUNTER → 2024-07-07 14:45 | Outpatient (BNVA) | payer MEDICARE, BC, SELFPAY | PROVIDERS: PCP Physician Assistant; Visit Provider Nurse Practitioner | DX: S82.122D Displaced fracture of lateral condyle of left tibia, subsequent encounter for closed fracture with routine healing (principal); X58.XXXD Exposure to other specified factors, subsequent encounter | CPT/HCPCS: 99214 ==

== ENCOUNTER 2024-07-21 06:07 | Outpatient (CLI) | payer MEDICARE, BC, SELFPAY ==
[2024-07-21 06:31] VITALS: BMI 31.5
--- NOTE | 2024-07-21 06:35 | ECG_ITS ---
Studentbox Test Date: 2024-07-21 Pat Name: Carrie Solis Department: Room: Gender: Female Monitoring Analyst: : 1960 Requested By: Homa Koroma Order Number: [id number] Daryn MD: Daren Nuñez M.D. Interpretive Statements Lung unchanged pre/post procedure; Intraprocedure shortess of breath; Symptoms resoled by discharge PROCEDURE: At the baseline, the EKG revealed normal sinus rhythm with nonspecific T wave changes. Poor R wave progression. The baseline heart was 60 to bpm with a blood pressue of 121/74 mm of Hg Lexiscan was infused over a period of 20 seconds. A total of 0.4 milligrams of Lexiscan was infused. The stress phase was continued for a total of 5 minutes. Heart rate at the end of the stress phase was 68 bpm with a blood pressure 145/74 mm of Hg. The EKG at the peak infusion revealed no significant changes. Sestamibi was injected 20 seconds after the Lexiscan infusion. Heart rate at the end of the recovery phase was 68 bpm with a blood pressure of 122/76 mm of Hg. CONCLUSION: 1. No significant EKG changes with the LexiScan infusion 2. No LexiScan induced chest pain or cardiac arrhythmia 3. Normal blood pressure and heart rate response 4. Sestamibi/sestamibi perfusion scan pending; see separate report. Electronically Signed On 07-28-2024 14:49:18 CDT by Daren Nuñez M.D. [email or web address]
--- NOTE | 2024-07-21 06:36 | NMCV_ITS ---
NM harsha perf SPECT r/s* [id number] Carrie Solis Age: 64 Gender: F : 1960 Exam Date: 07/21/2024 07:39 Ordering Phys: Homa Akins Technologist: THOMAS Coles Exam Location: [facility] Indications: cp STRESS TEST Please [facility] IMAGE PROTOCOL Rest/Stress 1 Lexiscan Day Radiopharmaceutical Dose (mCi) Administration Site Administered by Rest: Tc-99m 10.5 IV Ruby Cook, TRANSFORMER STOCK CLERK Sestamibi Stress:Tc-99m 32.9 IV Ruby Joey, TRANSFORMER STOCK CLERK Sestamibi Rest: 21-Jul-2024 60 Discovery 630 Stress: 21-Jul-2024 30 Discovery 630 0.4mg Lexiscan. Images obtained in supine and prone position. SPECT RESULTS Technical Quality: Good Raw Data Analysis: Normal Image Corrections: No attenuation or motion correction applied Summed Stress Score: 0 Summed Rest Score: 3 Summed Difference Score: 0 PERFUSION FINDINGS Fairly uniform myocardial tracer uptake. No significant perfusion abnormalities. FUNCTIONAL RESULTS (calculated via Gated SPECT) Stress Image LV EF (%): 72 Stress EDV (mL):75 TID: 1.18 Stress ESV (mL):21 FUNCTIONAL FINDINGS: Segmental wall motion analysis revealing no gross wall motion abnormalities IMPRESSIONS 1. Myocardial perfusion imaging revealing uniform myocardial tracer uptake with no significant Perfusion normalities. 2. Normal LV ejection fraction of 72% 3. LV wall motion analysis revealing no gross wall motion abnormalities. 4. Normal LV volume Low probability for coronary ischemia, based on the above findings No similar previous studies are available for comparison Dr Daren Nuñez MD [facility]IN [facility] (Electronically Signed) Final Date: 21 Jul 2024 13:27 S
--- NOTE | 2024-07-21 06:41 | USCV_ITS ---
Carrie Solis Age: 64 Gender: F : 1960 Exam Date: 07/21/2024 06:53 Ordering Phys: Homa Akins Technologist: LUKE Exam Location: [facility] [place] Indication: CP BP: 134 / 84 HR: 62 Rhythm: Sinus Technical Quality: Adequate MEASUREMENTS (Male / Female) Normal Values 2D ECHO LV Diastolic Diameter PLAX 4.7 cm 4.2 - 5.9 / 3.9 - 5.3 cm IVS Diastolic Thickness 1.1 cm 0.6 - 1.0 / 0.6 - 0.9 cm IVS Systolic Thickness 1.2 cm LVPW Diastolic Thickness 0.8 cm 0.6 - 1.0 / 0.6 - 0.9 cm LVPW Systolic Thickness 1.3 cm LVOT Diameter 2.0 cm LV Ejection Fraction 2D Teich 55.7 % LV Ejection Fraction MOD 4C 61.6 % LV Ejection Fraction MOD 2C 63.8 % LV Ejection Fraction 2C AL 67.2 % LA Diameter 3.6 cm RA Systolic Volume 4C AL 19.9 ml RA Systolic Volume 4C MOD 20.5 ml LA Sys Volume AL 33.8 cm cubed LA Sys Volume Index AL 17.6 cm cubed/m squared Aorta at Sinotubular Diameter 2.1 cm IVC Diameter 2.0 cm M-MODE LA Ao Ratio MM 1.4 AV Cusp Separation MM 1.4 cm DOPPLER AV Peak Velocity 157.0 cm/s LVOT Peak Velocity 105.0 cm/s AV Area Cont Eq vti 2.3 cm squared AV Area Cont Eq pk 2.1 cm squared MV Peak Velocity 108.0 cm/s MV Area PHT 3.7 cm squared Mitral E to A Ratio 0.8 TR Peak Velocity 250.0 cm/s TR Peak Gradient 25.0 mmHg TV Peak E Velocity 82.0 cm/s PV Peak Velocity 105.0 cm/s FINDINGS Left Ventricle Normal left ventricular size and systolic function, EF 56% . No regional wall motion abnormalities. Grade I/IV diastolic dysfunction (abnormal relaxation filling pattern), normal to mildly elevated filling pressures. Right Ventricle The right ventricle is normal in size and function. Right Atrium The right atrium is normal in size. Left Atrium The left atrium is normal in size. Mitral Valve Trace tp mild mitral valve regurgitation. Aortic Valve Thickened aortic valve. Tricuspid Valve Mild tricuspid valve regurgitation. Pulmonic Valve Structurally normal pulmonic valve without significant stenosis. There is no pulmonic regurgitation. Pericardium Normal pericardium without effusion. Aorta Normal ascending aorta dimension. IVC Normal inferior vena cava. CONCLUSIONS Normal left ventricular size and systolic function, EF 56% . No regional wall motion abnormalities. Grade I/IV diastolic dysfunction (abnormal relaxation filling pattern), normal to mildly elevated filling pressures. Trace tp mild mitral valve regurgitation. Mild tricuspid valve regurgitation. Thickened aortic valve. Estimated pulmonary artery peak systolic pressure 28 mmHg There is no pericardial effusion. There are no intracardiac masses. Dr Daren Nuñez MD F[facility] (Electronically Signed) Final Date: 21 Jul 2024 08:38 S
[2024-07-21] MEDS: regadenoson 0.4 Mg/5 ml Syringe IVP (08:08)
[2024-07-21 08:28] VITALS: BP 122/76; PULSE 68
== END 2024-07-21 06:08 | disposition home or self-care (01) ==
PROVIDERS: PCP Physician Assistant; Visit Provider Physician Assistant
DX: R07.9 Chest pain, unspecified (principal); R93.1 Abnormal findings on diagnostic imaging of heart and coronary circulation; I34.0 Nonrheumatic mitral (valve) insufficiency; I35.8 Other nonrheumatic aortic valve disorders; I07.1 Rheumatic tricuspid insufficiency
CPT/HCPCS: 36415; 73562; 78452; 93017; 93306; 96374; A9500; J2785

== ENCOUNTER → 2024-08-18 09:18 | Outpatient (BNVA) | payer MEDICARE, BC, SELFPAY | PROVIDERS: PCP Physician Assistant; Visit Provider Nurse Practitioner | DX: S82.122D Displaced fracture of lateral condyle of left tibia, subsequent encounter for closed fracture with routine healing (principal); X58.XXXD Exposure to other specified factors, subsequent encounter | CPT/HCPCS: 73562; 99213 ==

== ENCOUNTER → 2024-09-15 09:34 | Outpatient (BNVA) | payer MEDICARE, BC, SELFPAY | PROVIDERS: PCP Physician Assistant; Visit Provider Nurse Practitioner | DX: S82.121D Displaced fracture of lateral condyle of right tibia, subsequent encounter for closed fracture with routine healing (principal); X58.XXXD Exposure to other specified factors, subsequent encounter | CPT/HCPCS: 73560; 73565 ==

== ENCOUNTER → 2024-09-22 10:32 | Outpatient (BNVA) | payer MEDICARE, BC, SELFPAY | PROVIDERS: PCP Physician Assistant; Visit Provider Nurse Practitioner | DX: M25.561 Pain in right knee (principal); G89.29 Other chronic pain; M17.11 Unilateral primary osteoarthritis, right knee; S82.121D Displaced fracture of lateral condyle of right tibia, subsequent encounter for closed fracture with routine healing; X58.XXXD Exposure to other specified factors, subsequent encounter | CPT/HCPCS: 73560; 73565; 99214 ==

== ENCOUNTER 2025-01-29 08:22 | Outpatient (CLI) | payer MEDICARE, BC, SELFPAY ==
--- NOTE | 2025-01-29 08:34 | CT_ITS ---
WS: [id number] CT ABDOMEN AND PELVIS NONCONTRAST HISTORY: RECURRENT UTI TECHNIQUE: Imaging performed through the abdomen and pelvis. Coronal and sagittal reformats are submitted. All CT scans at [facility] use at least one of these dose optimization techniques: automated exposure control; mA and/or kV adjustment per patient size (includes targeted exams where dose is matched to clinical indication); or iterative reconstruction. DLP: 427.22 mGy.cm COMPARISON: 06/30/2024 Lower thorax: Lung bases are clear. Visualized heart is normal. No hiatal hernia. Liver: Subcapsular 7 mm hypodense nodule in the LEFT lobe of the liver has been previously described. No change since at least 03/11/2019. Mild hepatic steatosis. Gallbladder: Prior cholecystectomy. Pancreas: Normal size and attenuation. Normal pancreatic duct. No pancreatitis or mass. Spleen: Normal. Adrenal glands: Normal. No mass. Right kidney: Normal size kidney with no mass or hydronephrosis. Left kidney: Normal size kidney with no mass or hydronephrosis. Aorta: Mild atherosclerosis abdominal aorta with no aneurysm. Retroaortic LEFT renal vein. No free fluid, intraperitoneal air or significant lymphadenopathy. GI tract: No GI tract obstruction. No colitis. Normal appendix. No diverticulosis. Abdominal wall: Small umbilical hernia contains fat only. Pelvis: Urinary bladder is minimally distended. No free fluid in the pelvis. No adenopathy. Prior hysterectomy. Osseous structures: Degenerative disc disease in the lumbar spine. No destructive bone lesion. Mild osteophytic ridging around the RIGHT femoral head- neck junction. CT/CT abdomen pelvis wo con [id number] IMPRESSION: 1. No renal obstruction or perinephric stranding. 2. No renal or ureteral calcifications. 3. Minimally distended urinary bladder. No free fluid in the pelvis. 4. Prior cholecystectomy. 5. Prior hysterectomy. 6. Mild constipation. Normal appendix.
== END 2025-01-29 08:23 | disposition home or self-care (01) ==
LOC: RAD 08:23
PROVIDERS: PCP Physician Assistant; Visit Provider Nurse Practitioner Family
DX: N39.0 Urinary tract infection, site not specified (principal); Z90.49 Acquired absence of other specified parts of digestive tract; Z90.710 Acquired absence of both cervix and uterus; K59.00 Constipation, unspecified; I70.0 Atherosclerosis of aorta; K42.9 Umbilical hernia without obstruction or gangrene
CPT/HCPCS: 74176